=== PATIENT | male | born 1940 | race Caucasian/White ===

== ENCOUNTER 2017-03-31 16:34 | Emergency (ER) | payer OTHER ==
[~2017-03-31] VITALS: Ht 157.5 cm; Wt 77.7 kg
[~2017-03-31 16:34] MED LIST: ALBUAER19 INH; ASPCH81X PO; CLOB-65 TOP; ETAN50IN2 SC; IBUP-103 PO; LISI20TA3 PO; PRLSR20 PO
[2017-03-31 16:43] VITALS: TEMP 37.1; Ht 157.5 cm; Wt 77.7 kg
[2017-03-31] MEDS ORDERED: BACITRACIN OINT 15 GM TUBE EXT ONE (16:45)
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
[2017-03-31] MEDS ORDERED: ETAN50IN2 SC (17:06)
[2017-03-31] MEDS ORDERED: VNTHFA/IN INH (17:06)
[2017-03-31] MEDS ORDERED: CLOB-77 TOP (17:06)
[2017-03-31] MEDS ORDERED: HYDR12.55 PO (17:06)
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
[2017-03-31 18:57] VITALS: BP 142/93; PULSE 98; O2SAT 97
[2017-08-14] MEDS ORDERED: CYAN10005 PO (09:31)
== END 2017-03-31 18:58 | disposition home or self-care (01) ==
LOC: EDBD 16:34 → C.EDA 16:37
DX: S63.601A Unspecified sprain of right thumb, initial encounter (principal); S01.81XA Laceration without foreign body of other part of head, initial encounter; S80.811A Abrasion, right lower leg, initial encounter; V53.5XXA Driver of pick-up truck or van injured in collision with car, pick-up truck or van in traffic accident, initial encounter; Y92.488 Other paved roadways as the place of occurrence of the external cause; K21.9 Gastro-esophageal reflux disease without esophagitis; J45.909 Unspecified asthma, uncomplicated; E78.5 Hyperlipidemia, unspecified; I10 Essential (primary) hypertension; L40.9 Psoriasis, unspecified; Z90.79 Acquired absence of other genital organ(s); Z82.49 Family history of ischemic heart disease and other diseases of the circulatory system; Z79.82 Long term (current) use of aspirin; Z79.899 Other long term (current) drug therapy

== ENCOUNTER → 2017-07-08 | Outpatient (CLI) | payer OTHER ==
[~2017-07-08] MED LIST changes: -ALBUAER19 INH; -CLOB-65 TOP; +CLOB-77 TOP; +CYAN10005 PO; +HYDR12.55 PO; +VNTHFA/IN INH
== END | disposition home or self-care (01) ==
LOC: C.LAB 11:33
PROVIDERS: ATTEND Urology
DX: C61 Malignant neoplasm of prostate (principal)

== ENCOUNTER → 2017-07-10 | Outpatient (CLI) | payer OTHER ==
[~2017-07-10] MED LIST changes: +OPTIRAY 320 IV PRN
--- NOTE | 2017-07-10 14:14 | DIAGNOSTIC IMAGING REPORT ---
CT SCAN OF THE ABDOMEN AND PELVIS WITH IV CONTRAST CLINICAL HISTORY: Prostate cancer. COMPARISON STUDY: Abdominal CT dated 04/15/2009. TECHNIQUE: Following the IV administration of 93 cc of Optiray 320, CT scan of the abdomen and pelvis is performed from the lung bases to the proximal femora. Images are reviewed in the axial, sagittal, and coronal planes. IV contrast was administered without complication. A dose lowering technique was utilized adhering to the principles of ALARA. CT DOSE: 718.85 mGycm FINDINGS: Lung bases: The heart is normal in size and without pericardial effusion. The coronary arteries are densely calcified. A fat-containing Bochdalek hernia is seen at the right lung base. The lung bases are otherwise clear. There is a moderate hiatal hernia. Liver: The contrast-enhanced liver is normal in size, contour, and attenuation. There is no intrahepatic biliary ductal dilatation. The hepatic veins and portal veins are patent. Gallbladder: Unremarkable. Spleen: Normal in size and attenuation. Pancreas: Unremarkable. Adrenal glands: Unremarkable. Kidneys: The contrast enhanced kidneys demonstrate cortical atrophy and are without hydronephrosis. The kidneys enhance symmetrically. Abdominal vasculature: The abdominal aorta is normal in course and caliber noting mild atherosclerotic calcification. Bowel: The small bowel and colon are normal in course and caliber. There is advanced diverticulosis of left colon without CT evidence of acute diverticulitis. Mild wall thickening in the sigmoid colon is likely related to chronic diverticular disease, as are tiny PICC line lymph nodes. The appendix is not identified and reported surgically absent. Peritoneum: There is no intraperitoneal free air or abdominal ascites. There is a fat-containing umbilical hernia. Lymphadenopathy: None. Pelvic viscera: The prostate gland is surgically absent. The bladder and seminal vesicles are normal as imaged. Skeletal structures: The skeletal structures are osteopenic. There is mild lumbosacral spondylosis and scoliosis. No lytic or blastic lesions are seen. IMPRESSION: 1. There is no evidence of metastatic disease in the abdomen or pelvis. 2. There is advanced diverticulosis of the left colon without CT evidence of acute diverticulitis. 3. Mild wall thickening of the sigmoid colon and small pericardial lymph nodes are likely related to chronic diverticular disease. If not receive performed consider follow-up colonoscopy for further assessment. 4. Status post prostatectomy. 5. Additional findings as above. Electronically signed by: Tato Sanchez M.D. 07/10/2017 2:12 PM Dictated Date/Time: 07/10/2017 2:03 PM
--- NOTE | 2017-07-10 16:34 | DIAGNOSTIC IMAGING REPORT ---
WHOLE BODY BONE SCAN HISTORY: Prostate cancer. RADIOTRACER: 27 mCi Tc-99m MDP STUDY/IMAGES: Planar anterior and posterior whole body imaging was performed 3 hours following the intravenous administration of radiotracer. COMPARISON: Abdomen and pelvis CT 07/10/2017. FINDINGS: Scattered areas of mild radiotracer uptake seen within the shoulders, sternoclavicular joints, anterior first ribs, thoracic and lumbar spine, and left ankle/foot favor degenerative change. Small amount of radiotracer within the bladder remains. No suspicious areas of radiotracer uptake identified. IMPRESSION: No suspicious areas of radiotracer uptake within the axial or appendicular skeleton to suggest metastatic disease. Electronically signed by: Rajan Calderon M.D. 07/10/2017 4:32 PM Dictated Date/Time: 07/10/2017 4:29 PM
== END | disposition home or self-care (01) ==
LOC: C.CTS 12:32
PROVIDERS: ATTEND Urology
DX: C61 Malignant neoplasm of prostate (principal); K57.30 Diverticulosis of large intestine without perforation or abscess without bleeding; Z90.79 Acquired absence of other genital organ(s)

== ENCOUNTER → 2017-08-22 | Outpatient (CLI) | payer OTHER ==
[~2017-08-22] MED LIST changes: +GADAVIST IV PRN; -OPTIRAY 320 IV PRN
--- NOTE | 2017-08-22 11:09 | DIAGNOSTIC IMAGING REPORT ---
PROSTATE MRI COMBO CLINICAL HISTORY: 77 years-old Male presenting with history of PROSTATE CANCER status post prostatectomy and increasing PSA level. TECHNIQUE: Multisequence, multiplanar MR imaging of the prostate was performed before and after the administration of intravenous contrast. Additional postprocessing was performed on a separate [employer] workstation by the radiologist for 3-D volumetric segmentation of the prostate and contouring of region(s) of interest (JEFFERY) for targeting. IV contrast: 7.3 cc Gadavist COMPARISON: Abdomen and pelvis CT 07/10/2017. FINDINGS: Prostate gland is surgically absent. Multiple focal areas of metallic artifact at the prostatectomy bed resulting in suboptimal evaluation for recurrent/residual disease. No definite soft tissue masses identified within the prostatectomy bed. Of note, the ADC and DWI sequences are nondiagnostic due to the metallic artifact. Small fat-containing bilateral inguinal hernias. Bladder: Normal. Bowel: Visualized portion of the rectum normal. Peritoneum: No free fluid in the pelvis. Lymph nodes: No lymphadenopathy in the visualized portion of the pelvis. Vasculature: Iliac vessels patent. Osseous structures: Normal bone marrow signal intensity. IMPRESSION: 1. Status post prostatectomy. No definite evidence for recurrent or metastatic disease. 2. Of note, there is significant metallic artifact at the prostatectomy bed due to the surgical clips resulting in suboptimal evaluation. Electronically signed by: Rajan Calderon M.D. 08/22/2017 11:08 AM Dictated Date/Time: 08/22/2017 10:58 AM
== END | disposition home or self-care (01) ==
LOC: C.MRIBC 09:24
PROVIDERS: ATTEND Radiology Radiation Oncology
DX: C61 Malignant neoplasm of prostate (principal); Z90.79 Acquired absence of other genital organ(s)

== ENCOUNTER 2017-11-24 05:05 | Day surgery (SDC) | payer OTHER ==
[2017-11-14 13:24] VITALS: Ht 154.9 cm; Wt 74.1 kg
[~2017-11-24] VITALS: Ht 154.9 cm; Wt 74.1 kg
[~2017-11-24 05:05] MED LIST changes: +ANSHCCR PR; +CLBCRM30 EXT; -CLOB-77 TOP; -ETAN50IN2 SC; -GADAVIST IV PRN; -HYDR12.55 PO; -IBUP-103 PO; +IBUP-1428 PO; +PSYL48.59 PO; +TROL10LO TOP; +VALA500T60 PO
[2017-11-24 05:36] VITALS: BP 156/78; PULSE 106; TEMP 36.8; O2SAT 96
[2017-11-24] MEDS ORDERED: CLINDAMYCIN 600 MG/54 ML D5W IV SCH (06:00)
[2017-11-24] MEDS ORDERED: LACTATED RINGER'S 1000ML 500 ML IV SCH (06:00)
[2017-11-24] MEDS ORDERED: SODIUM CHLORIDE 0.9% 1000ML 1,000 ML IV SCH ×2 (06:00→08:16)
[2017-11-24] MEDS ORDERED: PROPOFOL IV EMULSION 10 MG/ML 20 ML VIAL IV ONE (06:30)
[2017-11-24] MEDS ORDERED: ROCURONIUM BROMIDE 10 MG/ML 5 ML VIAL IV ONE (06:30)
[2017-11-24] MEDS ORDERED: MIDAZOLAM HCL 1 MG/ML 2ML VIAL ONE (06:30)
[2017-11-24] MEDS ORDERED: GLYCOPYRROLATE INJ 0.2 MG/ML VIAL ONE (06:30)
[2017-11-24] MEDS ORDERED: ONDANSETRON INJ 2 MG/ML 2 ML VIAL ONE (06:30)
[2017-11-24] MEDS ORDERED: DEXAMETHASONE SOD INJ 4 MG/ML VIAL ONE (06:30)
[2017-11-24] MEDS ORDERED: NEOSTIGMINE METHYLSULFATE 5 MG/5 ML SYR ONE (06:30)
[2017-11-24] MEDS ORDERED: FENTANYL CITRATE INJ 50 MCG/1 ML 2 ML VIAL ONE ×2 (06:30→07:33)
[2017-11-24] MEDS ORDERED: BACITRACIN OINT 15 GM TUBE ONE (06:53)
[2017-11-24] MEDS ORDERED: LIDOCAINE HCL 1% 20 ML VIAL ONE (06:53)
[2017-11-24] MEDS ORDERED: BUPIVACAINE 0.5 % 5 MG/1 ML MPF 30ML VIAL ONE (06:54)
--- NOTE | 2017-11-24 07:08 | History & Physical Bridge Note ---
H&P Re-Evaluation Bridge Note: I have examined the patient, reviewed the History & Physical and in the interval since the performance of the History & Physical I have noted the following changes of clinical significance: No changes noted
[2017-11-24] MEDS ORDERED: EpHEDrine SULFATE INJ 50 MG/ML AMP IV PRN (07:15)
[2017-11-24] MEDS ORDERED: ATROPINE SULFATE 0.1 MG/ML 5ML SYR IV PRN (07:15)
[2017-11-24] MEDS ORDERED: FENTANYL CITRATE INJ 50 MCG/1 ML 2 ML VIAL IV PRN (07:15)
[2017-11-24] MEDS ORDERED: CLINDAMYCIN IV 600 MG in DEXTROSE 5% 50ML 50 ML IV ONE (07:15)
[2017-11-24] MEDS ORDERED: ONDANSETRON INJ 2 MG/ML 2 ML VIAL IV PRN ×2 (07:15→08:30)
[2017-11-24] MEDS ORDERED: HYDROmorphone INJ 1 MG/ML SYR IV PRN (07:15)
[2017-11-24] MEDS ORDERED: LIDOCAINE HCL 2% 2 ML VIAL (20MG/ML) ONE (07:36)
[2017-11-24] MEDS ORDERED: PHENYLEPHRINE 100MCG/ML 5ML SYR ONE (07:47)
--- NOTE | 2017-11-24 07:57 | [facility] Post Operative Brief Note ---
Immediate Operative Summary Operative Date Nov 24, 2017. Pre-Operative Diagnosis Incarcerated Umbilican Hernia Post-Operative Diagnosis Incarcerated Umbilican Hernia Procedure(s) Performed Open Repair Umbilical Hernia, primary closure Surgeon Dr. Harrell Discotheque Dancer Surgeon(s) surgical pathologist Estimated Blood Loss 5 ML Findings Consistent with Post-Op Diagnosis Fluids (cc crystalloids) 800ml Specimens None Per Surgeon Drains None Anesthesia Type General Complication(s) none Disposition Accompanied Pt To Recover: yes Disposition: Recovery Room / PACU
--- NOTE | 2017-11-24 08:22 | Discharge Instructions ---
Discharge Instructions Date of Service Nov 24, 2017. Visit Reason for Visit: Incarcerated Umbilical Hernia Discharge Discharge Diagnosis / Problem: S/P open repair umbilical hernia Discharge Goals Goal(s): Decrease discomfort, Improve function Activity Recommendations Activity Limitations: per Instructions/Follow-up section Lifting Limitations: no more than 25 pounds Exercise/Sports Limitations: rest today May Resume Sexual Activity: when tolerated Shower/Bathe: may shower/bathe in 3 days Driving or Machine Use: resume 3 days after discharge Anesthesia . Post Anesthesia Instructions: If you have had General Anesthesia or IV Sedation: * Do not drive today. * Resume driving when surgeon permits. * Do not make important decisions or sign legal documents today. * Call surgeon for: 1. Temperature elevations greater than 101 degrees F. 2. Uncontrollable pain. 3. Excessive bleeding. 4. Persistent nausea and vomiting. 5. Medication intolerance (nausea, vomiting or rash). * For nausea and vomiting use only clear liquids such as: tea, soda, bouillon until nausea subsides, then gradually increase diet as tolerated. * If you have any concerns or questions, call your surgeon's office. If physician is unavailable and it is an emergency, call 911 or go to the nearest emergency room. . Instructions / Follow-Up Instructions / Follow-Up keep the dressing on for 4 days, He can take a shower on 11/28/2017, no driving while taking pain medicine, Follow up Dr. Harrell, 2 weeks, Diet Recommendations Recommended Home Diet: resume previous diet Procedures Procedures Performed: Open Repair Umbilical Hernia, primary closure Pending Studies Studies pending at discharge: no Medical Emergencies . Who to Call and When: Medical Emergencies: If at any time you feel your situation is an emergency, please call 911 immediately. . Non-Emergent Contact Non-Emergency issues call your: Surgeon Call Non-Emergent contact if: you have a fever, temperature is above 100.5, your pain is not controlled, your pain is worsening, wound has increased drainage, wound has increased redness . . "Provider Documentation" section prepared by Camila Harrell. . [place] Drug Monitoring Program Search Results: no issues identified
[2017-11-24] MEDS ORDERED: tylenol # 3 (08:26)
[2017-11-24] MEDS ORDERED: IBUPROFEN 600 MG TAB PO PRN (08:30)
[2017-11-24] MEDS ORDERED: MoRPHine SULFATE 4 MG/ML 1 ML CARP\\VIAL IV PRN (08:30)
[2017-11-24] MEDS ORDERED: MoRPHine SULFATE 2 MG/ML CARP IV PRN (08:30)
--- NOTE | 2017-11-24 08:36 | Anesthesiology Progress Note ---
Anesthesia Post Op Note Date & Time Nov 24, 2017 at 08:36 Vital Signs Pain Intensity: 0 Vital Signs Past 12 Hours Date Time Temp Pulse Resp B/P (MAP) Pulse Ox O2 Delivery O2 Flow Rate FiO2 11/24/17 08:30 82 21 128/73 99 Room Air 11/24/17 08:20 83 21 131/97 98 Oxymask 10 11/24/17 08:10 85 16 128/93 99 Oxymask 10 11/24/17 08:04 36.2 110 17 133/89 100 Oxymask 10 11/24/17 05:36 36.8 106 18 156/78 (104) 96 Room Air Notes Mental Status: alert / awake / arousable, participated in evaluation Pt Amnestic to Procedure: Yes Nausea / Vomiting: adequately controlled Pain: adequately controlled Airway Patency, RR, SpO2: stable & adequate BP & HR: stable & adequate Hydration State: stable & adequate Anesthetic Complications: no major complications apparent
[2017-11-24 08:55] VITALS: BP 113/63; PULSE 79; TEMP 36.9; O2SAT 93
[2017-11-24 09:25] VITALS: BP 118/66; PULSE 79; TEMP 36.9; O2SAT 96
--- NOTE | 2017-11-24 10:13 | OPERATIVE REPORT ---
DATE OF OPERATION: 11/24/2017 PREOPERATIVE DIAGNOSIS: Incarcerated umbilical hernia. POSTOPERATIVE DIAGNOSIS: Same. OPERATION: Open repair of incarcerated umbilical hernia with primary closure. SURGEON: Camila Harrell MD. ANESTHESIA: General. ESTIMATED BLOOD LOSS: About 5 mL. FINDINGS: Incarcerated umbilical hernia. COMPLICATIONS: None. INDICATIONS FOR THE PROCEDURE: This is a 77-year-old gentleman who presented with umbilical hernia with symptoms of pain. The patient will be required to do open repair of umbilical hernia, possible mesh. I did talk to the patient about the benefit and risk, alternate procedure. I indicated the risks may include but not limited such as bleeding, infection, hernia recurrence, injury to bowel. The patient understands. He signed informed consent and I answered all questions. DETAILS OF PROCEDURE: We brought the patient to the OR, put the patient in the supine position. The patient received SCD on bilateral legs to prevent DVT. Also, the patient received 600 mg of clindamycin IV for prophylactic antibiotic. The patient received general anesthesia without difficulty. The abdomen was prepped and draped in routine sterile fashion. After a timeout, I injected local anesthesia by using 1% lidocaine mixed with 0.5% Marcaine just below the umbilicus. Then I made a small incision just below the umbilicus, mobilized the umbilicus and then opened the hernia sac. We found the patient had an umbilical hernia incarcerated but we successfully reduced the incarcerated fat. The fat color was pink. Once we reduced the sac back to the abdominal cavity and we found the patient had a hernia size about 1.5 x 1.5 cm, we decided to use 0 Ethibond suture, closed the umbilical hernia with [id number] x3, rechecked, the hernia closed nicely, no tension. Hemostasis was obtained. Then I used 2-0 Vicryl to reattach the umbilicus to original location. Then I used 2-0 Vicryl to close subcutaneous layer interruptedly. We closed the skin by using 4-0 Vicryl and then we put the dressing on. The patient tolerated the procedure well. All the instrument, needle and sponge count correct x2 at the end of case and patient transferred to recovery room in stable condition. After the procedure, I did talk to the patient and patient's family member about the OR finding and procedure we did. They understands. Also, I gave them postop care instructions. I attest to the content of the Intraoperative Record and any orders documented therein. Any exceptions are noted below. LESLIE
== END 2017-11-24 10:20 | disposition home or self-care (01) ==
LOC: C.ACU 05:05
PROVIDERS: ATTEND Surgery
DX: K42.0 Umbilical hernia with obstruction, without gangrene (principal); K21.9 Gastro-esophageal reflux disease without esophagitis; J45.909 Unspecified asthma, uncomplicated; L40.50 Arthropathic psoriasis, unspecified; I10 Essential (primary) hypertension; M50.20 Other cervical disc displacement, unspecified cervical region; Z90.49 Acquired absence of other specified parts of digestive tract; Z87.891 Personal history of nicotine dependence; Z85.46 Personal history of malignant neoplasm of prostate; Z86.010 Personal history of colon polyps; Z79.82 Long term (current) use of aspirin

== ENCOUNTER → 2017-12-24 | Outpatient (CLI) | payer OTHER ==
[~2017-12-24] MED LIST changes: +HYDR25TA4 PO; +MULT-506 PO; +tylenol # 3
[2017-12-24 15:06] VITALS: BP 132/77; PULSE 95; TEMP 37; O2SAT 95
--- NOTE | 2017-12-24 16:20 | Radiation Oncology Follow-Up ---
Radiation Oncology Follow-Up Date of Visit Dec 24, 2017. Reason For Visit One-month follow-up in cancer survivorship care plan Radiation Completion Date finished 11-18-2017 Diagnosis (1) Prostate cancer Status: Acute Onset Date: 10/13/2003 Location: Left lobe of the prostate Histology Subtype: Adenocarcinoma Stage: ll Permanent Comment: Rising PSA Status post biopsy 10/13/2003 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 Lupron 22.5 mg IM 08/22/2017 Lupron 22.5 mg IM 11/18/2017 Status post completion of salvage radiation therapy 11/18/2017. He received 7020 cGy. Last Edited By: Vivian Cain on Nov 26, 2017 09:57 History of Present Illness Mr. Bailey presents with a history of prostate cancer. He initially presented with an elevated PSA in 2002 of 4.24 on 09/08/2003. He initially underwent a biopsy of the prostate gland on 10/13/2003 which revealed [place] 3+3 prostate adenocarcinoma. The patient elected to undergo a radical prostatectomy by Dr. Elaine which revealed prostate adenocarcinoma that was Norma 3+3 present in the left anterior/posterior lobe; there is no evidence of seminal vesicle invasion, the margins were negative and there is no apparent evidence of extracapsular extension. The patient did have follow-up PSAs. His PSA was 0.05 on 10/02/2007, 0.15 on 08/18/2005, 0.28 on 11/19/2010, 0.25 on 09/20/2011, 0.96 on 08/21/2016, 1.21 on 04/11/2017 and 1.29 on 07/08/2017. The patient underwent a CT of the abdomen/pelvis on 07/10/2017 which revealed no evidence of metastatic disease. The patient also underwent a bone scan on 07/10/2017 which revealed no evidence of distant metastatic disease. Dr. Hansen recently started seeing the patient and recommended consideration of salvage radiation therapy. We are now seeing the patient in consultation discuss the role of radiation therapy. Currently, the patient is doing relatively well. He denies any complaints of urinary incontinence. His urinary IPSS score 0/35. His EPIC QoL score is 6/ 60. He has no significant complaints at this point. He began androgen deprivation with Lupron. He then returned to our office to undergo salvage radiation therapy. This was completed 11/18/2017. He received 7020 cGy. Interim History He has been doing well over the past month. He denies any difficulty with urinary status. He gave an AUA score of 0. He completed and expanded prostate cancer index composite for clinical practice and gave a score of 0 of 12 and urinary incontinence symptoms. He gave a score of 0 12 and urinary irritation symptoms. He gave a score of 0 12 and bowel symptoms. He gave a score of 7 of 12 in sexual symptoms. He gave a score of 1 of 12 and hormonal vitality symptoms. His total was 8 of 60. Following his completion of radiation therapy he had a repair of an umbilical hernia. This had been noted during treatment and he was evaluated. He had surgery and has recovered well without difficulties. He is having a flare of his psoriasis. He had been on Humira and that was stopped with his prostate cancer diagnosis. He is going to be seeing a propagation worker to discuss what can be done to help his psoriasis. Allergies Coded Allergies: Oxycodone (Verified Adverse Reaction, Mild, HALLUCINATIONS, 11/24/17) Amoxicillin (Verified Adverse Reaction, Unknown, increased lft's, 11/24/17) gmg Clavulanic Acid (Verified Adverse Reaction, Unknown, increased lft's, 11/24) gmg Home Medications Scheduled Albuterol Hfa (Ventolin Hfa), 2-4 PUFFS INH Q6Hprn Aspirin (Aspirin Chewable), 81 MG PO QAM Clobetasol Propionate (Clobetasol Propionate Cream 0.05%), 1 APPLN EXT PRN Cyanocobalamin (Vitamin B-12), 1,000 MCG PO PRN Hydrochlorothiazide (Hctz), 1 TAB PO DAILY Lisinopril (Prinivil), 20 MG PO QAM Multivitamin (Multivitamin), 1 TAB PO DAILY Omeprazole (Prilosec), 20 MG PO QAM Trolamine Salicylate (Aspercreme), 1 DOSE TOP PRN Valacyclovir (Valtrex), 500 MG PO UD Scheduled PRN Hydrocortisone (Proctosol Hc), 1 APPLN PA BID PRN for PRN Ibuprofen (Motrin), 800 MG PO TID PRN for N Psyllium (Metamucil), 1 TSP PO Q2D PRN for PRN Review of Systems Gastrointestinal: Symptoms: WNL Oral: Symptoms: No Problems Respiratory: Symptoms: WNL Urinary: Symptoms: WNL Comments: "denies any problems " Skin: Other Skin Symptoms: " Psoriasis is back " Physical Exam Vital Signs Date Time Temp Pulse Resp B/P (MAP) Pulse Ox O2 Delivery O2 Flow Rate FiO2 12/24/17 15:06 37.0 95 18 132/77 95 Fatigue: None General Appearance: no apparent distress Eyes: normal inspection, EOMI ENT: normal ENT inspection, hearing grossly normal Respiratory/Chest: lungs clear, no respiratory distress, no accessory muscle use Cardiovascular: regular rate, rhythm, no gallop, no murmur Abdomen: non tender, soft, no organomegaly Extremities: no pedal edema, + pertinent finding (Psoriasis plaque are noted on the lower extremities.) Neurologic/Psychiatric: no motor/sensory deficits, alert, normal mood/affect Pain Management Patient Reports Pain: No Side: Bilateral Patient Preferred Pain Scale: 0 - 10 Initial Pain Intensity: 0.0 Pain Management Plan He denies pain therefore requires no pain management. Laboratory Laboratory Results: were reviewed, and pertinent findings noted below Laboratory Comments: Test 12/24/17 15:26 Prostate Specific Antigen < 0.010 ng/ml (0.000-4.000) Pathology Pathology Results: not applicable Imaging Imaging Studies: not applicable Assessment & Plan Plan: He was also seen and examined by Dr. Vital. PSA was drawn today. He will be notified as the results. Continue follow-up with Dr. Hansen and his PCP. He has an appointment with Dr. Hansen in January. Today we completed cancer survivorship care plan. A copy of the document was given to the patient. We asked him to return to our office in 6 months. He may call if he has any questions or concerns in the interim. He is going to follow-up with his propagation worker in regards to the issues of the recurrence of his psoriasis. Assessment & Plan (Attending) I agree with note created by Vivian Cain PA-C. I reviewed the patient's chart and information with her. I have examined and evaluated the patient. I reviewed relevant clinical information and answered the patient's and/or family' s questions. MANAGER QUALITY Total Time In Follow-Up I spent 20 minutes speaking to the patient in performing examination. I spent 20 minutes reviewing information, preparing the survivorship document, and completing this note. Total Time (Attending) In Follow-Up I spent 15 minutes examining and counseling the patient. MANAGER QUALITY Copy To Marcial Franks D.O.; Tu Hansen MD
== END | disposition home or self-care (01) ==
LOC: C.ONC 14:56
PROVIDERS: ATTEND Physician Assistant Medical
DX: Z08 Encounter for follow-up examination after completed treatment for malignant neoplasm (principal); Z92.3 Personal history of irradiation; Z85.46 Personal history of malignant neoplasm of prostate

== ENCOUNTER 2018-06-15 08:01 | Emergency (ER) | payer OTHER ==
[~2018-06-15] VITALS: Ht 157.5 cm; Wt 72.6 kg
[~2018-06-15 08:01] MED LIST changes: -tylenol # 3
[2018-06-15 08:03] VITALS: TEMP 36.8; Ht 157.5 cm; Wt 72.6 kg
[2018-06-15] MEDS ORDERED: OPTIRAY 320 IV PRN (08:30)
--- NOTE | 2018-06-15 08:46 | DIAGNOSTIC IMAGING REPORT ---
CHEST ONE VIEW PORTABLE CLINICAL HISTORY: 78 years-old Male presenting with Evaluate Fever/Sepsis. TECHNIQUE: Portable upright AP view of the chest was obtained. COMPARISON: 07/10/2014. FINDINGS: Cardiac silhouette top normal in size, unchanged. Prominent pericardial fat pad at the right cardiophrenic angle. No focal opacity. No large effusion or pneumothorax. Osseous structures normal. Upper abdomen normal. IMPRESSION: 1. No acute cardiopulmonary disease. Electronically signed by: Shen Umana M.D. 06/15/2018 8:44 AM Dictated Date/Time: 06/15/2018 8:42 AM
[2018-06-15 08:47] LABS: BASO % 0.3 %; BASO ABS # 0.03 K/uL (0-0.2); EOS % 0.8 %; EOS ABS # 0.08 K/uL (0-0.5); HEMATOCRIT 35.1 % (42-52); HEMOGLOBIN 12.1 g/dL (14.0-18.0); IG# 0.12 K/uL (0.00-0.02); LYMPH % 23.6 %; LYMPH ABS # 2.33 K/uL (1.2-3.4); MEAN CELL VOLUME 86.9 fL (80-100); MEAN CORPUSCULAR HGB CONC 34.5 g/dl (32-36); MEAN PLATELET VOLUME 10.4 fL (7.4-10.4); MONO % 8.4 %; MONO ABS # 0.83 K/uL (0.11-0.59); NEUT % 65.7 %; NEUT ABS # 6.47 K/uL (1.4-6.5); PLATELET COUNT 310 K/uL (130-400); RED CELL DISTRIBUTION WIDTH SD 41.4 fL (36.4-46.3); WHITE BLOOD COUNT 9.86 K/uL (4.8-10.8)
[2018-06-15 08:57] LABS: PTT PATIENT 28.3 SECONDS (21.0-31.0)
[2018-06-15 09:11] LABS: ALBUMIN 3.2 gm/dl (3.4-5.0); ALKALINE PHOSPHATASE 68 U/L (45-117); ALT/SGPT 36 U/L (12-78); AST/SGOT 35 U/L (15-37); BLOOD UREA NITROGEN 13 mg/dl (7-18); CALCIUM 8.5 mg/dl (8.5-10.1); CARBON DIOXIDE 34 mmol/L (21-32); CKMB < 1.0 ng/ml (0.5-3.6); CREATININE 1.09 mg/dl (0.60-1.40); GLUCOSE 113 mg/dl (70-99); LIPASE 331 U/L (73-393); POTASSIUM 2.4 mmol/L (3.5-5.1); SODIUM 136 mmol/L (136-145); TOTAL PROTEIN 7.5 gm/dl (6.4-8.2)
[2018-06-15] MEDS ORDERED: POTASSIUM CHLORIDE 10 MEQ TABCR PO STA (09:30)
--- NOTE | 2018-06-15 09:43 | DIAGNOSTIC IMAGING REPORT ---
THORACIC SPINE WITHOUT CT DOSE: HISTORY: Pain t spine pain TECHNIQUE: Multiaxial CT images of the thoracic spine were performed and reformatted in the sagittal and coronal plane without the use of contrast. A dose lowering technique was utilized adhering to the principles of ALARA. COMPARISON: None. FINDINGS: No fractures. No subluxation. Paraspinal soft tissues are unremarkable. Moderate degenerative disc change throughout. Degenerative sclerotic change of the vertebral endplates. No evidence for compression deformity. No bony compromise of the thoracic spine. IMPRESSION: Degenerative disc change throughout. No acute process. The above report was generated using voice recognition software. It may contain grammatical, syntax or spelling errors. Electronically signed by: Fernandez Llamas M.D. 06/15/2018 9:42 AM Dictated Date/Time: 06/15/2018 9:40 AM
--- NOTE | 2018-06-15 09:55 | DIAGNOSTIC IMAGING REPORT ---
CHEST COMBO ANGIOGRAPHY CLINICAL HISTORY: 78 years-old Male presenting with thoracic spine pain, clinical concern for thoracic aortic dissection. TECHNIQUE: Multidetector CT angiography of the chest was performed before and after the administration of intravenous contrast. 3-D volumetric and/or maximum intensity projection (MIP) images were subsequently reconstructed for review. IV contrast: 95 mL of Optiray 320. A dose lowering technique was used consistent with the principles of ALARA (as low as reasonably achievable). COMPARISON: Chest x-ray from earlier today. CT DOSE (mGy.cm): The estimated cumulative dose is 994.46 mGy.cm. FINDINGS: Apartment [employer] topogram: Unremarkable. Vasculature: The study is adequate for assessment of the aorta. Precontrast imaging demonstrates no evidence of intramural hematoma. Postcontrast imaging demonstrates no evidence of dissection, penetrating ulcer, or aneurysm. Allowing for timing of the contrast bolus, no gross evidence of a filling defect within the pulmonary arteries to suggest embolus. Enlargement of the main pulmonary artery, which measures 3.4 cm in diameter. No flattening of the interventricular septum. No intracardiac filling defect. No reflux of contrast into the hepatic veins. Remaining chest: On soft tissue windows, normal thyroid and thoracic inlet. No axillary, supraclavicular, hilar, or mediastinal lymphadenopathy. Prominent pericardial recess in the pretracheal region. Normal heart size. Coronary artery calcification. No pericardial or pleural effusion. Prominent posterior mediastinal fat at the level of the distal esophagus, which may be due to a small hiatal hernia. No extraluminal gas. Small amount of associated fluid in the presumed hernia sac (series 8 image 203). Density of the liver consistent with hepatic steatosis. On lung windows, no focal infiltrate or nodule. Airways patent. On bone windows, degenerative changes of the spine. IMPRESSION: 1. No evidence of acute aortic injury. No acute intrathoracic pathology. 2. Main pulmonary artery enlarged, which may indicate pulmonary hypertension. 3. Prominent posterior mediastinal fat at the level of the distal esophagus, which may be due to a hiatal hernia. Small amount of associated fluid, nonspecific. 4. Hepatic steatosis. Electronically signed by: Shen Umana M.D. 06/15/2018 9:54 AM Dictated Date/Time: 06/15/2018 9:47 AM
[2018-06-15] MEDS ORDERED: TRAM-10 PO (10:04)
[2018-06-15] MEDS ORDERED: POTA10CA28 PO (10:04)
--- NOTE | 2018-06-15 10:06 | EMERGENCY ROOM VISIT NOTE ---
History Report prepared by Levon: Trev Garibay Under the Supervision of: Dr. Curtis Jewell D.O. First contact with patient: 08:11 Chief Complaint: BACK PAIN Stated Complaint: UPPER BACK PAIN History of Present Illness The patient is a 78 year old male who presents to the Emergency Room with complaints of worsening back pain that he has been experiencing for the "past 2- 3 weeks." The patient states that the pain is localized to the central/left back and feels like "I got a knife buried in there." He has been trying Ibuprofen, ice, and head, but nothing seems to help. He denies any breathing difficulties. Source of History: patient Onset: 2-3 weeks Position: back Quality: other ("I got a knife buried in there.") Timing: other Modifying Factors (Relieving): other (N/A) Associated Symptoms: No SOB Review of Systems See HPI for pertinent positives & negatives. A total of 10 systems reviewed and were otherwise negative. Past Medical & Surgical Medical Problems: (1) Acid reflux (2) Asthma, Unspecified (3) Esophageal Reflux (4) Hyperlipidemia Nec/Nos (5) Hypertension (6) Hypertension Nos (7) Psoriasis Surgical Problems: (1) History of appendectomy (2) History of prostatectomy (3) Status post tonsillectomy and adenoidectomy Family History Hypertension Social History Smoking Status: Never Smoker Alcohol Use: none Marital Status: single Housing Status: lives alone Occupation Status: retired Current/Historical Medications Scheduled Albuterol Hfa (Ventolin Hfa), 2-4 PUFFS INH Q6Hprn Aspirin (Aspirin Chewable), 81 MG PO QAM Clobetasol Propionate (Clobetasol Propionate Cream 0.05%), 1 APPLN EXT PRN Cyanocobalamin (Vitamin B-12), 1,000 MCG PO PRN Hydrochlorothiazide (Hctz), 1 TAB PO DAILY Lisinopril (Prinivil), 20 MG PO QAM Multivitamin (Multivitamin), 1 TAB PO DAILY Omeprazole (Prilosec), 20 MG PO QAM Potassium Chloride (Micro-K Ext Rel), 10 MEQ PO BID Trolamine Salicylate (Aspercreme), 1 DOSE TOP PRN Valacyclovir (Valtrex), 500 MG PO UD Scheduled PRN Hydrocortisone (Proctosol Hc), 1 APPLN [place] BID PRN for PRN Ibuprofen (Motrin), 800 MG PO TID PRN for N Psyllium (Metamucil), 1 TSP PO Q2D PRN for PRN Tramadol (Ultram), 100 MG PO Q4H PRN for Pain Allergies Coded Allergies: Oxycodone (Verified Adverse Reaction, Mild, HALLUCINATIONS, 06/15/18) Amoxicillin (Verified Adverse Reaction, Unknown, increased lft's, 06/15/18) gmg Clavulanic Acid (Verified Adverse Reaction, Unknown, increased lft's, 06/15) gmg Physical Exam Vital Signs Date Time Temp Pulse Resp B/P (MAP) Pulse Ox O2 Delivery O2 Flow Rate FiO2 06/15/18 09:15 78 18 141/84 97 Room Air 06/15/18 08:35 94 06/15/18 08:03 36.8 91 18 154/89 98 Room Air Physical Exam CONSTITUTIONAL/VITAL SIGNS: Reviewed / noted above. GENERAL: Non-toxic in appearance. INTEGUMENTARY: Warm, dry, and [place]. HEAD: Normocephalic. EYES: without scleral icterus or trauma. ENT/OROPHARYNX: clear and moist. LYMPHADENOPATHY/NECK: Is supple without lymphadenopathy or meningismus. RESPIRATORY: Lungs clear and equal. CARDIOVASCULAR: Regular rate and rhythm. GI/ABDOMEN: Soft and nontender. No organomegaly or pulsatile mass. No rebound or guarding. Normal bowel sounds. EXTREMITIES: Warm and well perfused. BACK: No CVA tenderness. No rashes. NEUROLOGICAL: Intact without focal deficits. PSYCHIATRIC: normal affect. MUSCULOSKELETAL: Normally developed with good muscle tone. Medical Decision & Procedures ER Provider Diagnostic Interpretation: Radiology results as stated below per my review and radiologist interpretation: CHEST ONE VIEW PORTABLE CLINICAL HISTORY: 78 years-old Male presenting with Evaluate Fever/Sepsis. TECHNIQUE: Portable upright AP view of the chest was obtained. COMPARISON: 07/10/2014. FINDINGS: Cardiac silhouette top normal in size, unchanged. Prominent pericardial fat pad at the right cardiophrenic angle. No focal opacity. No large effusion or pneumothorax. Osseous structures normal. Upper abdomen normal. IMPRESSION: 1. No acute cardiopulmonary disease. Electronically signed by: Shen Umana M.D. 06/15/2018 8:44 AM Dictated Date/Time: 06/15/2018 8:42 AM CHEST COMBO ANGIOGRAPHY CLINICAL HISTORY: 78 years-old Male presenting with thoracic spine pain, clinical concern for thoracic aortic dissection. TECHNIQUE: Multidetector CT angiography of the chest was performed before and after the administration of intravenous contrast. 3-D volumetric and/or maximum intensity projection (MIP) images were subsequently reconstructed for review. IV contrast: 95 mL of Optiray 320. A dose lowering technique was used consistent with the principles of ALARA (as low as reasonably achievable). COMPARISON: Chest x-ray from earlier today. CT DOSE (mGy.cm): The estimated cumulative dose is 994.46 mGy.cm. FINDINGS: Merchandise Execution Leader topogram: Unremarkable. Vasculature: The study is adequate for assessment of the aorta. Precontrast imaging demonstrates no evidence of intramural hematoma. Postcontrast imaging demonstrates no evidence of dissection, penetrating ulcer, or aneurysm. Allowing for timing of the contrast bolus, no gross evidence of a filling defect within the pulmonary arteries to suggest embolus. Enlargement of the main pulmonary artery, which measures 3.4 cm in diameter. No flattening of the interventricular septum. No intracardiac filling defect. No reflux of contrast into the hepatic veins. Remaining chest: On soft tissue windows, normal thyroid and thoracic inlet. No axillary, supraclavicular, hilar, or mediastinal lymphadenopathy. Prominent pericardial recess in the pretracheal region. Normal heart size. Coronary artery calcification. No pericardial or pleural effusion. Prominent posterior mediastinal fat at the level of the distal esophagus, which may be due to a small hiatal hernia. No extraluminal gas. Small amount of associated fluid in the presumed hernia sac (series 8 image 203). Density of the liver consistent with hepatic steatosis. On lung windows, no focal infiltrate or nodule. Airways patent. On bone windows, degenerative changes of the spine. IMPRESSION: 1. No evidence of acute aortic injury. No acute intrathoracic pathology. 2. Main pulmonary artery enlarged, which may indicate pulmonary hypertension. 3. Prominent posterior mediastinal fat at the level of the distal esophagus, which may be due to a hiatal hernia. Small amount of associated fluid, nonspecific. 4. Hepatic steatosis. Electronically signed by: Shen Umana M.D. 06/15/2018 9:54 AM Dictated Date/Time: 06/15/2018 9:47 AM THORACIC SPINE WITHOUT CT DOSE: HISTORY: Pain t spine pain TECHNIQUE: Multiaxial CT images of the thoracic spine were performed and reformatted in the sagittal and coronal plane without the use of contrast. A dose lowering technique was utilized adhering to the principles of ALARA. COMPARISON: None. FINDINGS: No fractures. No subluxation. Paraspinal soft tissues are unremarkable. Moderate degenerative disc change throughout. Degenerative sclerotic change of the vertebral endplates. No evidence for compression deformity. No bony compromise of the thoracic spine. IMPRESSION: Degenerative disc change throughout. No acute process. The above report was generated using voice recognition software. It may contain grammatical, syntax or spelling errors. Electronically signed by: Fernandez Llamas M.D. 06/15/2018 9:42 AM Dictated Date/Time: 06/15/2018 9:40 AM Laboratory Results 06/15/18 08:35 Red Blood Count 4.04, Mean Corpuscular Volume 86.9, Mean Corpuscular Hemoglobin 30.0, Mean Corpuscular Hemoglobin Concent 34.5, Mean Platelet Volume 10.4, Neutrophils (%) (Auto) 65.7, Lymphocytes (%) (Auto) 23.6, Monocytes (%) (Auto) 8.4, Eosinophils (%) (Auto) 0.8, Basophils (%) (Auto) 0.3, Neutrophils # (Auto) 6.47, Lymphocytes # (Auto) 2.33, Monocytes # (Auto) 0.83, Eosinophils # (Auto) 0.08, Basophils # (Auto) 0.03 06/15/18 08:35 Test 06/15/18 08:35 White Blood Count 9.86 K/uL (4.8-10.8) Red Blood Count 4.04 M/uL (4.7-6.1) Hemoglobin 12.1 g/dL (14.0-18.0) Hematocrit 35.1 % (42-52) Mean Corpuscular Volume 86.9 fL (80-100) Mean Corpuscular Hemoglobin 30.0 pg (25-34) Mean Corpuscular Hemoglobin Concent 34.5 g/dl (32-36) Platelet Count 310 K/uL (130-400) Mean Platelet Volume 10.4 fL (7.4-10.4) Neutrophils (%) (Auto) 65.7 % Lymphocytes (%) (Auto) 23.6 % Monocytes (%) (Auto) 8.4 % Eosinophils (%) (Auto) 0.8 % Basophils (%) (Auto) 0.3 % Neutrophils # (Auto) 6.47 K/uL (1.4-6.5) Lymphocytes # (Auto) 2.33 K/uL (1.2-3.4) Monocytes # (Auto) 0.83 K/uL (0.11-0.59) Eosinophils # (Auto) 0.08 K/uL (0-0.5) Basophils # (Auto) 0.03 K/uL (0-0.2) RDW Standard Deviation 41.4 fL (36.4-46.3) RDW Coefficient of Variation 13.0 % (11.5-14.5) Immature Granulocyte % (Auto) 1.2 % Immature Granulocyte # (Auto) 0.12 K/uL (0.00-0.02) Prothrombin Time 10.6 SECONDS (9.0-12.0) Prothromb Time International Ratio 1.0 (0.9-1.1) Activated Partial Thromboplast Time 28.3 SECONDS (21.0-31.0) Partial Thromboplastin Ratio 1.1 Anion Gap 6.0 mmol/L (3-11) Est Creatinine Clear Calc Drug Dose 50.4 ml/min Estimated GFR () 76.0 Estimated GFR (Non- 65.6 BUN/Creatinine Ratio 12.0 (10-20) Calcium Level 8.5 mg/dl (8.5-10.1) Total Bilirubin 0.5 mg/dl (0.2-1) Direct Bilirubin 0.2 mg/dl (0-0.2) Aspartate Amino Transf (AST/SGOT) 35 U/L (15-37) Alanine Aminotransferase (ALT/SGPT) 36 U/L (12-78) Alkaline Phosphatase 68 U/L (45-117) Total Creatine Kinase 106 U/L (39-308) Creatine Kinase MB < 1.0 ng/ml (0.5-3.6) Creatine Kinase MB Ratio (0-3.0) Troponin I < 0.015 ng/ml (0-0.045) Total Protein 7.5 gm/dl (6.4-8.2) Albumin 3.2 gm/dl (3.4-5.0) Lipase 331 U/L (73-393) Laboratory results as stated above per my review. Medications Administered Medications (Trade) Dose Ordered Sig/Conor Route Start Time Stop Time Status Last Admin Dose Admin Potassium Chloride (Klor-Con M10) 60 meq NOW STAT PO 06/15/18 09:30 06/15/18 09:31 DC 06/15/18 09:36 60 MEQ ECG Per My Interpretation Indication: back/shoulder pain Rate (beats per minute): 81 Rhythm: normal sinus Findings: no acute ischemic change, no ectopy, other (No DEANNA/STD) ED Course 814: Previous medical records were reviewed. The patient was evaluated in room A2. A complete history and physical examination was performed. 929: Ordered Potassium Chloride 60 meq PO. 1010: On reevaluation, the patient is resting in bed. I discussed the results and findings with the patient. He verbalized agreement of the treatment plan. The patient was discharged home. Medical Decision the differential was considered includes acute myocardial infarction, musculoskeletal, acute coronary syndrome, myocarditis, pericarditis, pericardial effusions/tamponade, esophageal perforation, thoracic aortic dissection, pulmonary embolism, pneumonia, pneumothorax, pancreatitis, shingles , acute cholecystitis, perforated abdominal viscus. This is a 78-year-old male who presents to the ED with a chief complaint of left upper back pain. The patient describes it as a sharp pain just left of his spine that is been present for the past 2-3 weeks. He states that he has tried heating pads, ibuprofen and nothing seems to help. It is not necessarily worse with movement. He states that he has not been as active as usual because of the discomfort. He has no chest pains or shortness of breath. He has not had any rashes in the area. He has not had a fever. Denies any recent trauma. Initial blood pressure slightly elevated. 154/89. This could be related to pain. His exam was otherwise unremarkable. A chest x-ray was negative for acute disease. EKG shows a normal sinus rhythm. CBC is unremarkable. Troponin was negative. CT scan angiogram the aorta and chest was negative for acute intrathoracic pathology. CT scan of the T-spine reveals DJD. Chemistry panel was unremarkable with exception of a low potassium of 2.4. Kidney function was normal. The patient was told the results of the test. He was treated with oral potassium. He was discharged with a prescription for potassium for the next several days and was also given a prescription for Ultram for his pain. He was told to follow-up with his PCP for further evaluation and care and pain management. The patient was given a dose of Ultram here orally. He was also had a Lidoderm patch placed in his area of pain. Medication Reconcilliation Current Medication List: was personally reviewed by me Blood Pressure Screening Patient's blood pressure: Elevated blood pressure Blood pressure disposition: Elevated BP felt to be situational Impression Primary Impression: Upper back pain Scribe Attestation The scribe's documentation has been prepared under my direction and personally reviewed by me in its entirety. I confirm that the note above accurately reflects all work, treatment, procedures, and medical decision making performed by me. Departure Information Dispostion Home / Self-Care Prescriptions Tramadol (Ultram) 50 Mg Tab 100 MG PO Q4H Y for Pain, #30 TAB Prov: Curtis Jewell D.O. 06/15/18 Potassium Chloride (Micro-K Ext Rel) 10 Meq Capcr 10 MEQ PO BID for 7 Days, #14 CAP Prov: Curtis Jewell D.O. 06/15/18 Referrals Marcial Franks D.O. (PCP) Patient Instructions My [facility] Additional Instructions Your potassium was low today at 2.4. Follow-up with your doctor next week for recheck of this. K Dur as prescribed. The cause for your back pain was not discovered today. The CAT scan of your chest and back only shows some degenerative changes or age-related changes. Blood work was unremarkable. Follow-up with your doctor for recheck of these symptoms. Take Ultram as prescribed for pain. Follow-up with your doctor for further care and evaluation in 1-2 days. Return to the emergency department for worsening or new symptoms or any concerns. You have been examined and treated today on an emergency basis only. This is not a substitute for, or an effort to provide, complete comprehensive medical care. It is impossible to recognize and treat all injuries or illnesses in a single emergency department visit. It is therefore important that you follow up closely with your doctor. Call as soon as possible for an appointment.
[2018-06-15] MEDS ORDERED: TRAMADOL HCL 50 MG TAB PO STA (10:08)
[2018-06-15] MEDS ORDERED: LIDODERM (LIDOCAINE) PATCH 5% TD ONE (10:15)
[2018-06-15 10:16] VITALS: BP 154/89; PULSE 82; O2SAT 97
== END 2018-06-15 10:27 | disposition home or self-care (01) ==
LOC: C.EDB 08:02 → C.EDA 10:27
DX: M54.6 Pain in thoracic spine (principal); E87.6 Hypokalemia; M51.34 Other intervertebral disc degeneration, thoracic region; J45.909 Unspecified asthma, uncomplicated; Z79.82 Long term (current) use of aspirin; I10 Essential (primary) hypertension; K21.9 Gastro-esophageal reflux disease without esophagitis; Z88.6 Allergy status to analgesic agent; Z88.1 Allergy status to other antibiotic agents

== ENCOUNTER → 2018-06-23 | Outpatient (CLI) | payer OTHER ==
[~2018-06-23] MED LIST changes: +POTA10CA28 PO; +POTA75TA PO; +TRAM-10 PO
[2018-06-23 14:04] VITALS: BP 114/67; PULSE 90; TEMP 36.6; O2SAT 96
--- NOTE | 2018-06-23 15:34 | Radiation Oncology Follow-Up ---
Radiation Oncology Follow-Up Date of Visit Jun 23, 2018. Reason For Visit 6 month follow up Radiation Completion Date finished 11-18-2017 Diagnosis (1) Prostate cancer Status: Acute Onset Date: 10/13/2003 Location: left lobe of the prostate Histology Subtype: adenocarcinoma Stage: ll Permanent Comment: Rising PSA Status post biopsy 10/13/2003 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 Lupron 22.5 mg IM 08/22/2017 Lupron 22.5 mg IM 11/18/2017 Status post completion of salvage radiation therapy 11/18/2017. He received 7020 cGy. Last Edited By: Vivian Cain on Nov 26, 2017 09:57 History of Present Illness Mr. Bailey presents with a history of prostate cancer. He initially presented with an elevated PSA in 2002 of 4.24 on 09/08/2003. He initially underwent a biopsy of the prostate gland on 10/13/2003 which revealed [place] 3+3 prostate adenocarcinoma. The patient elected to undergo a radical prostatectomy by Dr. Elaine which revealed prostate adenocarcinoma that was Norma 3+3 present in the left anterior/posterior lobe; there is no evidence of seminal vesicle invasion, the margins were negative and there is no apparent evidence of extracapsular extension. The patient did have follow-up PSAs. His PSA was 0.05 on 10/02/2007, 0.15 on 08/18/2005, 0.28 on 11/19/2010, 0.25 on 09/20/2011, 0.96 on 08/21/2016, 1.21 on 04/11/2017 and 1.29 on 07/08/2017. The patient underwent a CT of the abdomen/pelvis on 07/10/2017 which revealed no evidence of metastatic disease. The patient also underwent a bone scan on 07/10/2017 which revealed no evidence of distant metastatic disease. Dr. Hansen recently started seeing the patient and recommended consideration of salvage radiation therapy. We are now seeing the patient in consultation discuss the role of radiation therapy. Currently, the patient is doing relatively well. He denies any complaints of urinary incontinence. His urinary IPSS score 0/35. His EPIC QoL score is 6/ 60. He has no significant complaints at this point. He began androgen deprivation with Lupron. He then returned to our office to undergo salvage radiation therapy. This was completed 11/18/2017. He received 7020 cGy. Interim History He has been doing well from urinary standpoint. Today he gave an AUA score of 1. He completed and expanded prostate cancer index composite for clinical practice and gave a score of 0 of 12 and urinary incontinence symptoms. He gave a score of 0 12 and urinary irritation symptoms. He gave a score of 0 12 and bowel symptoms. He gave a score of 8 of 12 and sexual symptoms. He did note that this was not a problem. He gave a score of 1 of 12 and hormonal vitality symptoms. His total was 9 of 60. He had a recheck PSA June 19, 2018. That was found to be less than 0.02. His last Lupron injection was November 18, 2017. And that was 22.5 mg. He has been having some issues with back pain. This began in the left lower back. This then began to cause discomfort in the thoracic spine area. He has been seen in follow-up and had an x-ray of the thoracic spine which showed degenerative disc changes. He also had a CT of the chest. There was no evidence of any acute aortic injury. No acute intrathoracic pathology. There are degenerative changes seen of the spine. Some nonspecific changes of the esophagus. He also has enlargement of the pulmonary artery which may indicate pulmonary hypertension. The studies were ordered when he was in the emergency room and copies have been sent to his primary care physician. With the ongoing pain he had a recheck PSA and that was very good at less than 0.02. He also has a bone scan ordered for June 25. Allergies Coded Allergies: Oxycodone (Verified Adverse Reaction, Mild, HALLUCINATIONS, 06/15/18) Amoxicillin (Verified Adverse Reaction, Unknown, increased lft's, 06/15/18) gmg Clavulanic Acid (Verified Adverse Reaction, Unknown, increased lft's, 06/15) gmg Home Medications Scheduled Albuterol Hfa (Ventolin Hfa), 2-4 PUFFS INH Q6Hprn Aspirin (Aspirin Chewable), 81 MG PO QAM Clobetasol Propionate (Clobetasol Propionate Cream 0.05%), 1 APPLN EXT PRN Cyanocobalamin (Vitamin B-12), 1,000 MCG PO PRN Lisinopril (Prinivil), 20 MG PO QAM Multivitamin (Multivitamin), 1 TAB PO DAILY Omeprazole (Prilosec), 20 MG PO QAM Potassium (Potassium), 2 TABS PO BID Trolamine Salicylate (Aspercreme), 1 DOSE TOP PRN Valacyclovir (Valtrex), 500 MG PO DIRECTED Scheduled PRN Hydrocortisone (Proctosol Hc), 1 APPLN [place] BID PRN for PRN Ibuprofen (Motrin), 800 MG PO TID PRN for N Psyllium (Metamucil), 1 TSP PO Q2D PRN for PRN Tramadol (Ultram), 100 MG PO Q4H PRN for Pain Review of Systems Gastrointestinal: Symptoms: Constipation GI Comments: had constipation this week, took MOM , had a BM last night Oral: Symptoms: No Problems Respiratory: Symptoms: WNL Urinary: Symptoms: Nocturia Comments: occ nocturia times 1 Skin: Other Skin Symptoms: "has sun burn on chest from light therapy " Physical Exam Vital Signs Date Time Temp Pulse Resp B/P (MAP) Pulse Ox O2 Delivery O2 Flow Rate FiO2 06/23/18 14:04 36.6 90 20 114/67 96 Fatigue: None General Appearance: no apparent distress Eyes: normal inspection, EOMI ENT: normal ENT inspection, hearing grossly normal Respiratory/Chest: lungs clear, no respiratory distress, no accessory muscle use Cardiovascular: regular rate, rhythm, no gallop, no murmur Abdomen: normal bowel sounds, non tender, soft, no organomegaly Extremities: no pedal edema Neurologic/Psychiatric: no motor/sensory deficits, alert, normal mood/affect Skin: warm/dry Pain Management Patient Reports Pain: Yes Side: Bilateral Pain Location: Back Patient Preferred Pain Scale: 0 - 10 Initial Pain Intensity: 7.0 Pain Management Plan Back pain is currently being followed by and managed through the primary care physician's office. Laboratory Laboratory Results: were reviewed Laboratory Comments: PSA on June 19, 2018 was less than 0.02. Pathology Pathology Results: and pertinent findings noted in HPI Imaging Imaging Studies: were reviewed Imaging Comments Reviewed in the interim history. Assessment & Plan Plan: The patient seen today by Dr. Vital. We have reviewed his recent PSA that is excellent. His primary care provider is following him for the back pain. Bone scan has been ordered. Will be reviewed when that that is completed. We asked him to return to our office in 1 year. He may call if he has any questions or concerns in the interim. He will also follow-up with Dr. Hansen in approximately 6 months. Assessment & Plan (Attending) I agree with note created by Vivian Cain PA-C. I reviewed the patient's chart and information with her. I have examined and evaluated the patient. I reviewed relevant clinical information and answered the patient's and/or family' s questions. ASSOCIATE MANAGER Total Time In Follow-Up I spent 20 minutes speaking to the patient in performing examination. I spent 15 minutes reviewing information and completing this note. AK Total Time (Attending) In Follow-Up I spent 15 minutes examining and counseling the patient. ASSOCIATE MANAGER Copy To Marcial Franks, D.O.; Tu Hansen MD
== END | disposition home or self-care (01) ==
LOC: C.ONC 13:54
PROVIDERS: ATTEND Physician Assistant Medical
DX: Z08 Encounter for follow-up examination after completed treatment for malignant neoplasm (principal); Z92.3 Personal history of irradiation; Z85.46 Personal history of malignant neoplasm of prostate

== ENCOUNTER 2019-11-07 15:38 | Inpatient (IN) ==
[2019-11-07] MEDS ORDERED: SODIUM CHLORIDE 0.9% 1000ML 500 ML IV ONE (15:54)
[2019-11-07] MEDS ORDERED: ONDANSETRON INJ 2 MG/ML 2 ML VIAL IV STA (15:54)
[2019-11-07 16:27] LABS: Basophils # (auto) 0.03 K/uL (0-0.2); Basophils % (auto) 0.3 %; Eosinophils # (auto) 0.01 K/uL (0-0.5); Eosinophils % (auto) 0.1 %; Hematocrit (blood only) 42.9 % (42-52); Hemoglobin 14.3 g/dL (14.0-18.0); Immature Granulocytes # (auto) 0.07 K/uL (0.00-0.02); Immature Granulocytes % (auto) 0.7 %; Lymphocytes # (auto) 1.81 K/uL (1.2-3.4); Mean Corpuscular Hemoglobin 30.3 pg (25-34); Mean Corpuscular Hgb Conc 33.3 g/dL (32-36); Mean Corpuscular Volume 90.9 fL (80-100); Mean Platelet Volume 10.8 fL (7.4-10.4); Monocytes # (auto) 1.62 K/uL (0.11-0.59); Neutrophils # (auto) 5.98 K/uL (1.4-6.5); Neutrophils % (auto) 62.9 %; Platelet Count 278 K/uL (130-400); RDW Coefficient of Variation 14.9 % (11.5-14.5); RDW Standard Deviation 49.8 fL (36.4-46.3); Red Blood Count 4.72 M/uL (4.7-6.1); White Blood Count 9.52 K/uL (4.8-10.8)
[2019-11-07 16:47] LABS: Albumin Level 3.6 gm/dl (3.4-5.0); BUN Creatinine Ratio 11.2 (10-20); Bilirubin Direct 0.1 mg/dl (0-0.2); Bilirubin,Total 0.7 mg/dl (0.2-1); Calcium 8.6 mg/dl (8.5-10.1); Creatinine Clr Calc Pharmacy 52.5 ml/min; Est GFR (African American) 93.9; Magnesium 0.7 mg/dl (1.8-2.4); Potassium 3.4 mmol/L (3.5-5.1); Total Protein 7.9 gm/dl (6.4-8.2)
[2019-11-07] MEDS: MAGNESIUM SULFATE / D5W 1 GM/100 ML BAG IV SCH ×2 (17:18→20:48)
[2019-11-07] MEDS ORDERED: IOVERSOL 100ml IV PRN (17:27)
--- NOTE | 2019-11-07 17:41 | CT Scan Report ---
CT abd pelvis IV con only CT DOSE: 301.52 mGy.cm HISTORY: Pain. Nausea. abdominal pain vomitting TECHNIQUE: Multiaxial CT images of the abdomen and pelvis were performed following the use of intrave nous contrast. A dose lowering technique was utilized adhering to the principles of ALARA. COMPARISON STUDY: 07/10/2017 FINDINGS: Lung bases are clear. Fixed hiatal hernia. The kidneys are considered negative for hydronep hrosis. The abdominal bowel pattern is considered nonobstructive. Moderate wall thickening as well as diverticular formation of the descending colon as well as the pro ximal to mid sigmoid. There is a trace amount of pericolonic infiltrative change in the mid sigmoid r egion. This appearance suggests acute diverticulitis superimposed upon chronic diverticular change. No evidence for abscess collection or obstruction. Small periumbilical hernia containing a short segment loop of small bowel. This appears to be nonobst ructive finding. IMPRESSION: 1. Chronic descending as well as sigmoid diverticulosis with mild acute diverticulitis of the mid sig moid. 2. No evidence for abscess collection or obstruction. 3. Small periumbilical hernia containing a short segment of small bowel. This appears to be nonobstru ctive finding. ACT 112: Negative or not required by law. The above report was generated using voice recognition software. It may contain grammatical, syntax or spelling errors. Electronically signed by: Fernandez Llamas M.D. 11/07/2019 5:39 PM
[2019-11-07] MEDS ORDERED: metroNIDAZOLE 500 MG/100 ML BAG IV STA (17:42)
[2019-11-07] MEDS ORDERED: cefTRIAXone SODIUM 1,000 MG/50 ML BAG IV STA (17:42)
[2019-11-07] MEDS ORDERED: ALBUT/IPRATROP 3MG/0.5MG NEB 3 ML VIAL NEB STA (18:10)
--- NOTE | 2019-11-07 18:11 | XRay Report ---
XR chest 1V portable CLINICAL HISTORY: hypoxia dyspnea COMPARISON STUDY: 07/31/2018 FINDINGS: Moderate cardiomegaly. Prominent pulmonary vasculature. Diaphragms are flattened but smooth . IMPRESSION: Mild congestive failure. ACT 112: Negative or not required by law. The above report was generated using voice recognition software. It may contain grammatical, syntax or spelling errors. Electronically signed by: Fernandez Llamas M.D. 11/07/2019 6:09 PM
[2019-11-07 19:01] LABS: Influenza B virus by PCR Neg for Influ B (Neg)
[2019-11-07] MEDS ORDERED: OSELTAMIVIR PHOSPHATE 75 MG CAP PO STA (19:06)
[2019-11-07 19:09] LABS: Appearance Urine Clear (Clear); Bacteria Urine Automated Negative (Negative); Bilirubin Urine Negative (Negative); Blood Urine 1+ (Negative); Cast Urine Automated 0 /lpf (0-5); Color Urine Yellow; Glucose Urine UA Negative (Negative); Ketones Urine 2+ (Negative); Leukocyte Esterase Urine Negative (Negative); Nitrite Urine Negative (Negative); Protein Urine 2+ (Negative); RBC Urine Automated 0-4 /hpf (0-4); Specific Gravity Urine > 1.045 (1.000-1.030); Urobilinogen Urine Negative (Negative); pH Urine 6.5 (4.5-7.5)
[2019-11-07] MEDS ORDERED: OPTIRAY 320 125ml IV PRN (19:23)
--- NOTE | 2019-11-07 19:35 | CT Scan Report ---
CT angio chest PE protocol CT DOSE: 334.04 mGy.cm HISTORY: Chest pain. Dyspnea. ro PE TECHNIQUE: Multiaxial CT images of the chest were performed following the intravenous administration of contrast to evaluate the pulmonary arteries. Maximal intensity projection images were also obtaine d. A dose lowering technique was utilized adhering to the principles of ALARA. COMPARISON STUDY: None. FINDINGS: Normal thoracic aorta. Pulmonary vasculature enhances appropriately. No filling defects. Large fixed hiatal hernia. Lungs are considered clear. IMPRESSION: 1. Negative thoracic aorta. 2. No evidence for pulmonary embolus. 3. Lungs are clear. 4. Large fixed hiatal hernia. ACT 112: Negative or not required by law. The above report was generated using voice recognition software. It may contain grammatical, syntax or spelling errors. Electronically signed by: Fernandez Llamas M.D. 11/07/2019 7:34 PM
--- NOTE | 2019-11-07 22:22 | History & Physical Report ---
Date of Service November 07, 2019 Assessment & Plan (1) Flu-like symptoms: (2) Influenza: Present on admission with flu like symptoms febrile Influenza virus PCR type A positive Continue oseltamivir x5 days (3) Diverticulitis: Abdominal pain associated with vomiting Recently completed treatment with Cipro and Flagyl a week ago CT abd showed chronic descending as well as sigmoid diverticulosis with mild acute diverticulitis of the mid sigmoid. Received ceftriaxone and metronidazole in the ER, will continue antibiotic Keep NPO except ice and chips Will do gentle hydration and antiemitic Will check blood cx Schedule outpatient to get colonoscopy and EGD on 11/16/19 We will consult GI Monitor Electrolytes (4) Hypomagnesemia: Related to vomiting and poor oral intake Mg on admission 0.7 Mg replaced Will monitor mg level Hypokalemia K 3.4 on admission K replaced Monitor BMP HTN BP stable Continue amlodipine and lisinopril DVT px on heparin subq Code status FULL CODE History of Present Illness Chief Complaint: Abdominal pain associated with vomiting Primary Care Provider: Marcial Franks DO 79 years old male with past medical history of GERD, Martin's, hypertension, prostate cancer status post chemo/radiation and resection, COPD, umbilical hernia status post repair without mesh on November 2017, psoriatic arthritis presented to the ER with abdominal pain associated with vomiting. Patient said for the past few weeks he has been having vomiting during defecation. He saw GI on 02/12/19 and CAT scan was ordered that showed asymmetric wall thickening of the mid sigmoid colon favored to be chronic mid sigmoid colon diverticulitis. He was prescribed Cipro and Flagyl which he completed the course last week. He said his symptoms were improved then about 3 days ago he started to have flu like symptoms with productive cough. He said every time he coughed he vomited. He said that he is having abdominal pain located below his umbilical area. He said pain is intermittent and moderate in intensity. patient said that he has to carry a container with him everywhere he goes to vomit when he cough and during defecation again. He said that he does not have any energy and he feels very weak and chills. He said he has not been eating or drinking due to the vomiting. He said that he scheduled to have an endoscopy and colonoscopy on November 16 with gastro. In the ER labs done show magnesium 0.7, potassium 3.4 and influenza PCR type A positive. CT abd repeat today showed Chronic descending as well as sigmoid diverticulosis with mild acute diverticulitis of the mid sigmoid. Denies any chest pain, palpitation, dizziness, shortness of breath. Allergies Allergy/AdvReac Type Severity Reaction Status Date / Time oxycodone AdvReac Mild HALLUCINATI Verified 11/07/19 16:43 ONS amoxicillin AdvReac Unknown increased Verified 11/07/19 16:43 lft's clavulanic acid AdvReac Unknown increased Verified 11/07/19 16:43 lft's Home Medications Home Medications Medication Instructions Recorded Confirmed Type albuterol sulfate [Ventolin HFA] 2 puff INHALATION Q4H PRN 07/31/18 11/07/19 History amlodipine 2 tabs PO DAILY 07/31/18 11/07/19 History aspirin 81 mg PO DAILY 07/31/18 11/07/19 History lisinopril 30 mg PO DAILY 07/31/18 11/07/19 History omeprazole 20 mg PO DAILY 07/31/18 11/07/19 History potassium chloride 2 tabs PO DAILY 07/31/18 11/07/19 History tramadol 2 tabs PO Q8 PRN 07/31/18 11/07/19 History valacyclovir 500 mg PO BID PRN 07/31/18 11/07/19 History atorvastatin 10 mg PO DAILY 11/07/19 11/07/19 History clobetasol [Temovate] 1 applic TOPICAL BID PRN 11/07/19 11/07/19 History propranolol 80 mg PO DAILY 11/07/19 11/07/19 History triamcinolone acetonide 1 applic TOPICAL BID PRN 11/07/19 11/07/19 History Past Med/Surg History Medical History (Updated 11/07/19 @ 22:22 by Marv Conley MD) Acid reflux (Chronic) Atrial flutter with rapid ventricular response (Acute) Cervical disc displacement (Chronic) COPD (chronic obstructive pulmonary disease) (Chronic) History of paroxysmal supraventricular tachycardia (Chronic) HLD (hyperlipidemia) (Chronic) HTN (hypertension) (Chronic) Hyperlipidemia Hypokalemia (Acute) Hypomagnesemia (Acute) Prostate cancer (Resolved 10/13/03) "Rising PSA Status post biopsy 10/13/2003 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 Lupron 22.5 mg IM 08/22/2017 Lupron 22.5 mg IM 11/18/2017 Status post completion of salvage radiation therapy 11/18/2017. 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 Nausea. abdominal pain vomitting TECHNIQUE: Multiaxial CT images of the abdomen and pelvis were performed following the use of intravenous contrast. A dose lowering technique was utilized adhering to the principles of ALARA. COMPARISON STUDY: 07/10/2017 FINDINGS: Lung bases are clear. Fixed hiatal hernia. The kidneys are considered negative for hydronephrosis. The abdominal bowel pattern is considered nonobstructive. Moderate wall thickening as well as diverticular formation of the descending colon as well as the proximal to mid sigmoid. There is a trace amount of pericolonic infiltrative change in the mid sigmoid region. This appearance suggests acute diverticulitis superimposed upon chronic diverticular change. No evidence for abscess collection or obstruction. Small periumbilical hernia containing a short segment loop of small bowel. This appears to be nonobstructive finding. IMPRESSION: 1. Chronic descending as well as sigmoid diverticulosis with mild acute diverticulitis of the mid sigmoid. 2. No evidence for abscess collection or obstruction. 3. Small periumbilical hernia containing a short segment of small bowel. This appears to be nonobstructive finding. ACT 112: Negative or not required by law. The above report was generated using voice recognition software. It may contain grammatical, syntax or spelling errors. Electronically signed by: Fernandez Llamas M.D. 11/07/2019 5:39 PM Dictated: 11/07/194 Transcribed: 11/07/191733 CT angio chest PE protocol CT DOSE: 334.04 mGy.cm HISTORY: Chest pain. Dyspnea. ro PE TECHNIQUE: Multiaxial CT images of the chest were performed following the intravenous administration of contrast to evaluate the pulmonary arteries. Maximal intensity projection images were also obtained. A dose lowering technique was utilized adhering to the principles of ALARA. COMPARISON STUDY: None. FINDINGS: Normal thoracic aorta. Pulmonary vasculature enhances appropriately. No filling defects. Large fixed hiatal hernia. Lungs are considered clear. IMPRESSION: 1. Negative thoracic aorta. 2. No evidence for pulmonary embolus. 3. Lungs are clear. 4. Large fixed hiatal hernia. ACT 112: Negative or not required by law. The above report was generated using voice recognition software. It may contain grammatical, syntax or spelling errors. Electronically signed by: Fernandez Llamas M.D. 11/07/2019 7:34 PM Dictated: 11/07/191930 Transcribed: 11/07/191930 XR chest 1V portable CLINICAL HISTORY: hypoxia dyspnea COMPARISON STUDY: 07/31/2018 FINDINGS: Moderate cardiomegaly. Prominent pulmonary vasculature. Diaphragms are flattened but smooth. IMPRESSION: Mild congestive failure. ACT 112: Negative or not required by law. The above report was generated using voice recognition software. It may contain grammatical, syntax or spelling errors. Electronically signed by: Fernandez Llamas M.D. 11/07/2019 6:09 PM Dictated: 11/07/191808 Transcribed: 11/07/191808 Results & Data Vital Signs (Past 12 Hours) Vital Signs Temp Pulse Pulse Resp BP Pulse Ox 11/07/19 21:20 80 21 92 11/07/19 21:10 83 21 90 11/07/19 21:01 79 21 92 11/07/19 21:00 84 18 128/80 92 11/07/19 20:50 82 23 93 11/07/19 20:40 86 33 H 95 11/07/19 20:31 86 20 96 11/07/19 20:30 86 33 H 147/74 H 96 11/07/19 20:20 87 18 94 05 20:10 84 25 H 96 11/07/19 20:01 81 26 H 96 11/07/19 20:00 82 25 H 131/78 96 11/07/19 19:50 84 18 95 11/07/19 19:44 92 H 32 H 138/80 11/07/19 19:41 93 H 12 11/07/19 19:10 88 22 96 11/07/19 19:09 38.2 C H 11/07/19 19:00 86 26 H 96 11/07/19 18:50 90 23 93 11/07/19 18:40 89 25 H 95 11/07/19 18:30 90 39 H 11/07/19 18:20 93 H 18 11/07/19 18:14 94 H 21 97 11/07/19 18:10 93 H 29 H 11/07/19 18:01 95 H 33 H 11/07/19 18:00 93 H 29 H 146/80 H 11/07/19 17:50 91 H 35 H 95 11/07/19 17:45 95 H 22 128/79 87 L 11/07/19 17:40 93 H 36 H 88 L 11/07/19 17:37 96 H 31 H 126/57 L 89 L 11/07/19 17:36 95 H 29 H 90 11/07/19 17:20 96 H 28 H 90 11/07/19 17:10 96 H 26 H 92 11/07/19 17:01 92 H 29 H 92 11/07/19 17:00 92 H 37 H 132/76 92 11/07/19 16:50 92 H 28 H 91 11/07/19 16:40 93 H 26 H 91 11/07/19 16:30 95 H 35 H 94 11/07/19 16:22 90 11/07/19 16:21 94 H 28 H 152/96 H 91 11/07/19 16:20 94 H 30 H 91 11/07/19 16:10 96 H 28 H 11/07/19 16:07 94 H 33 H 11/07/19 15:41 36.7 C 104 H 20 138/81 95
--- NOTE | 2019-11-07 22:25 | Emergency Department Note ---
Entered by Lexy Cárdenas acting as a scribe for History of Present Illness General Chief complaint: Vomiting Stated complaint: VOMITING FOR PAST 2 DAYS Time Seen by Provider: 11/07/19 15:50 History of Present Illness Provider complaint: lower abdominal pain Onset (ago): day(s) 2 Location: abdomen (lower) Pain Consistency: + other (episode) Maximum Pain Intensity: 9 Associated symptoms: + fever/chills and + nausea/vomiting; no chest pain and no shortness of breath Treatments prior to arrival: none The patient is a 79 year old male who presents to the ED with complaints of an episode of lower abdominal pain that started 2 days ago. The patient states that he also has nausea, vomiting and possible fevers. The patient notes that he has not eaten in 2 days. The patient denies hemoptysis, chest pain, shortness of breath, dysuria, diarrhea, difficulty moving his bowels and alcohol use. The patient notes that he had an umbilical hernia repair 1 year ago. The patient denies taking any treatments prior to arrival. Home Medications Home Medications Medication Instructions Recorded Confirmed Type albuterol sulfate [Ventolin HFA] 2 puff INHALATION Q4H PRN 07/31/18 11/07/19 History amlodipine 2 tabs PO DAILY 07/31/18 11/07/19 History aspirin 81 mg PO DAILY 07/31/18 11/07/19 History lisinopril 30 mg PO DAILY 07/31/18 11/07/19 History omeprazole 20 mg PO DAILY 07/31/18 11/07/19 History potassium chloride 2 tabs PO DAILY 07/31/18 11/07/19 History tramadol 2 tabs PO Q8 PRN 07/31/18 11/07/19 History valacyclovir 500 mg PO BID PRN 07/31/18 11/07/19 History atorvastatin 10 mg PO DAILY 11/07/19 11/07/19 History clobetasol [Temovate] 1 applic TOPICAL BID PRN 11/07/19 11/07/19 History propranolol 80 mg PO DAILY 11/07/19 11/07/19 History triamcinolone acetonide 1 applic TOPICAL BID PRN 11/07/19 11/07/19 History Allergies Allergy/AdvReac Type Severity Reaction Status Date / Time oxycodone AdvReac Mild HALLUCINATI Verified 11/07/19 16:43 ONS amoxicillin AdvReac Unknown increased Verified 11/07/19 16:43 lft's clavulanic acid AdvReac Unknown increased Verified 11/07/19 16:43 lft's Past Med/Surg History Medical History (Updated 11/07/19 @ 22:22 by Marv Conley MD) Acid reflux (Chronic) Atrial flutter with rapid ventricular response (Acute) Cervical disc displacement (Chronic) COPD (chronic obstructive pulmonary disease) (Chronic) History of paroxysmal supraventricular tachycardia (Chronic) HLD (hyperlipidemia) (Chronic) HTN (hypertension) (Chronic) Hyperlipidemia Hypokalemia (Acute) Hypomagnesemia (Acute) Prostate cancer (Resolved 10/13/03) "Rising PSA Status post biopsy 10/13/2003 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 Lupron 22.5 mg IM 08/22/2017 Lupron 22.5 mg IM 11/18/2017 Status post completion of salvage radiation therapy 11/18/2017. 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 Status post radical peritoneal prostatectomy 01/04/2004 Stage pT2b pNXM0 Rising PSA post prostatectomy PSA 07/08/2017 at 1.290" Psoriasis (Chronic) Surgical History (Updated 11/07/19 @ 20:35 by Lexy Cárdenas) H/O hand surgery H/O radical prostatectomy H/O umbilical hernia repair History of tonsillectomy and adenoidectomy Hx of appendectomy Social History Preferred Language: Yi Communication Ability: Effective Dining Services Manager Required: No Beliefs That Will Affect Care: None Current Living Situation: Alone Feels Safe at Home: Yes Smoking Status: Never smoker Tobacco Type: cigarettes ; Second Hand Exposure: No ; Hx Alcohol Use: Yes Hx Substance Use: No Review of Systems See HPI for pertinent positives & negatives. and A total of 10 systems reviewed and were otherwise negative Physical Exam Vital Signs Vital Signs - 24 hr 11/07/19 15:41 11/07/19 16:07 11/07/19 16:10 Temperature 36.7 C Temperature Source Oral Pulse Rate 104 H 94 H 96 H Pulse Rate [Right] Pulse Rate from SpO2 Sensor Respiratory Rate 20 33 H 28 H Respiratory Effort / Characteristics Blood Pressure 138/81 Blood Pressure Mean 100 Pulse Oximetry 95 Oxygen Delivery Method Room Air Oxygen Flow Rate Sepsis Recent Fever Within 48 Hours No Sepsis New/Unexplained Change in Mental Status No Sepsis Action Taken by Nursing No Action Required 11/07/19 16:20 11/07/19 16:21 11/07/19 16:22 Temperature Temperature Source Pulse Rate 94 H 94 H Pulse Rate [Right] Pulse Rate from SpO2 Sensor 90 94 H Respiratory Rate 30 H 28 H Respiratory Effort / Characteristics Blood Pressure 152/96 H Blood Pressure Mean 129 Pulse Oximetry 91 91 90 Oxygen Delivery Method Room Air Oxygen Flow Rate Sepsis Recent Fever Within 48 Hours Sepsis New/Unexplained Change in Mental Status Sepsis Action Taken by Nursing 11/07/19 16:30 11/07/19 16:40 11/07/19 16:50 Temperature Temperature Source Pulse Rate 95 H 93 H 92 H Pulse Rate [Right] Pulse Rate from SpO2 Sensor 97 H 93 H 92 H Respiratory Rate 35 H 26 H 28 H Respiratory Effort / Characteristics Blood Pressure Blood Pressure Mean Pulse Oximetry 94 91 91 Oxygen Delivery Method Oxygen Flow Rate Sepsis Recent Fever Within 48 Hours Sepsis New/Unexplained Change in Mental Status Sepsis Action Taken by Nursing 11/07/19 17:00 11/07/19 17:01 11/07/19 17:10 Temperature Temperature Source Pulse Rate 92 H 92 H 96 H Pulse Rate [Right] Pulse Rate from SpO2 Sensor 92 H 92 H 93 H Respiratory Rate 37 H 29 H 26 H Respiratory Effort / Characteristics Blood Pressure 132/76 Blood Pressure Mean 98 Pulse Oximetry 92 92 92 Oxygen Delivery Method Oxygen Flow Rate Sepsis Recent Fever Within 48 Hours Sepsis New/Unexplained Change in Mental Status Sepsis Action Taken by Nursing 11/07/19 17:20 11/07/19 17:36 11/07/19 17:37 Temperature Temperature Source Pulse Rate 96 H 95 H 96 H Pulse Rate [Right] Pulse Rate from SpO2 Sensor 96 H 93 H 96 H Respiratory Rate 28 H 29 H 31 H Respiratory Effort / Characteristics Blood Pressure 126/57 L Blood Pressure Mean 98 Pulse Oximetry 90 90 89 L Oxygen Delivery Method Oxygen Flow Rate Sepsis Recent Fever Within 48 Hours Sepsis New/Unexplained Change in Mental Status Sepsis Action Taken by Nursing 11/07/19 17:40 11/07/19 17:45 11/07/19 17:50 Temperature Temperature Source Pulse Rate 93 H 95 H 91 H Pulse Rate [Right] Pulse Rate from SpO2 Sensor 94 H 95 H 90 Respiratory Rate 36 H 22 35 H Respiratory Effort / Characteristics Blood Pressure 128/79 Blood Pressure Mean 114 Pulse Oximetry 88 L 87 L 95 Oxygen Delivery Method Nasal Cannula Oxygen Flow Rate 2 Sepsis Recent Fever Within 48 Hours Sepsis New/Unexplained Change in Mental Status Sepsis Action Taken by Nursing 11/07/19 18:00 11/07/19 18:01 11/07/19 18:10 Temperature Temperature Source Pulse Rate 93 H 95 H 93 H Pulse Rate [Right] Pulse Rate from SpO2 Sensor Respiratory Rate 29 H 33 H 29 H Respiratory Effort / Characteristics Blood Pressure 146/80 H Blood Pressure Mean 114 Pulse Oximetry Oxygen Delivery Method Oxygen Flow Rate Sepsis Recent Fever Within 48 Hours Sepsis New/Unexplained Change in Mental Status Sepsis Action Taken by Nursing 11/07/19 18:14 11/07/19 18:20 11/07/19 18:30 Temperature Temperature Source Pulse Rate 93 H 90 Pulse Rate [Right] 94 H Pulse Rate from SpO2 Sensor Respiratory Rate 21 18 39 H Respiratory Effort / Characteristics Non-Labored Spontaneous Blood Pressure Blood Pressure Mean Pulse Oximetry 97 Oxygen Delivery Method Nasal Cannula Oxygen Flow Rate 3 Sepsis Recent Fever Within 48 Hours Sepsis New/Unexplained Change in Mental Status Sepsis Action Taken by Nursing 11/07/19 18:40 11/07/19 18:50 11/07/19 19:00 Temperature Temperature Source Pulse Rate 89 90 86 Pulse Rate [Right] Pulse Rate from SpO2 Sensor 89 90 86 Respiratory Rate 25 H 23 26 H Respiratory Effort / Characteristics Blood Pressure Blood Pressure Mean Pulse Oximetry 95 93 96 Oxygen Delivery Method Oxygen Flow Rate Sepsis Recent Fever Within 48 Hours Sepsis New/Unexplained Change in Mental Status Sepsis Action Taken by Nursing 11/07/19 19:09 11/07/19 19:10 11/07/19 19:41 Temperature 38.2 C H Temperature Source Oral Pulse Rate 88 93 H Pulse Rate [Right] Pulse Rate from SpO2 Sensor 86 Respiratory Rate 22 12 Respiratory Effort / Characteristics Blood Pressure Blood Pressure Mean Pulse Oximetry 96 Oxygen Delivery Method Oxygen Flow Rate Sepsis Recent Fever Within 48 Hours Sepsis New/Unexplained Change in Mental Status Sepsis Action Taken by Nursing 11/07/19 19:44 11/07/19 19:50 11/07/19 20:00 Temperature Temperature Source Pulse Rate 92 H 84 82 Pulse Rate [Right] Pulse Rate from SpO2 Sensor 84 82 Respiratory Rate 32 H 18 25 H Respiratory Effort / Characteristics Blood Pressure 138/80 131/78 Blood Pressure Mean 107 93 Pulse Oximetry 95 96 Oxygen Delivery Method Oxygen Flow Rate Sepsis Recent Fever Within 48 Hours Sepsis New/Unexplained Change in Mental Status Sepsis Action Taken by Nursing 11/07/19 20:01 11/07/19 20:10 11/07/19 20:20 Temperature Temperature Source Pulse Rate 81 84 87 Pulse Rate [Right] Pulse Rate from SpO2 Sensor 81 84 86 Respiratory Rate 26 H 25 H 18 Respiratory Effort / Characteristics Blood Pressure Blood Pressure Mean Pulse Oximetry 96 96 94 Oxygen Delivery Method Oxygen Flow Rate Sepsis Recent Fever Within 48 Hours Sepsis New/Unexplained Change in Mental Status Sepsis Action Taken by Nursing 11/07/19 20:30 11/07/19 20:31 11/07/19 20:40 Temperature Temperature Source Pulse Rate 86 86 86 Pulse Rate [Right] Pulse Rate from SpO2 Sensor 86 89 87 Respiratory Rate 33 H 20 33 H Respiratory Effort / Characteristics Blood Pressure 147/74 H Blood Pressure Mean 106 Pulse Oximetry 96 96 95 Oxygen Delivery Method Oxygen Flow Rate Sepsis Recent Fever Within 48 Hours Sepsis New/Unexplained Change in Mental Status Sepsis Action Taken by Nursing 11/07/19 20:50 11/07/19 21:00 11/07/19 21:01 Temperature Temperature Source Pulse Rate 82 84 79 Pulse Rate [Right] Pulse Rate from SpO2 Sensor 82 83 79 Respiratory Rate 23 18 21 Respiratory Effort / Characteristics Blood Pressure 128/80 Blood Pressure Mean 95 Pulse Oximetry 93 92 92 Oxygen Delivery Method Oxygen Flow Rate Sepsis Recent Fever Within 48 Hours Sepsis New/Unexplained Change in Mental Status Sepsis Action Taken by Nursing 11/07/19 21:10 11/07/19 21:20 Temperature Temperature Source Pulse Rate 83 80 Pulse Rate [Right] Pulse Rate from SpO2 Sensor 82 80 Respiratory Rate 21 21 Respiratory Effort / Characteristics Blood Pressure Blood Pressure Mean Pulse Oximetry 90 92 Oxygen Delivery Method Oxygen Flow Rate Sepsis Recent Fever Within 48 Hours Sepsis New/Unexplained Change in Mental Status Sepsis Action Taken by Nursing GENERAL: He is oriented to person, place, and time. He appears well-developed and well-nourished. He does not appear distressed. HENT: Exam performed. - Head: Normocephalic and atraumatic. - Right Ear: External ear normal. No mastoid tenderness. - Left Ear: External ear normal. No mastoid tenderness. - Mouth/Throat: Dry mucous membranes. The oropharynx is clear. No trismus in the jaw. No dental abscesses or uvula swelling. No oropharyngeal exudate or tonsillar abscesses. EYES: Conjunctivae and EOM are normal. Pupils are equal, round, and reactive to light. Right eye exhibits no discharge. Left eye exhibits no discharge. No scleral icterus. NECK: Normal range of motion. Neck supple. No JVD present. No spinous process tenderness present. No carotid bruit present. No rigidity. No tracheal deviation and normal range of motion present. No Brudzinski's sign and no Kernig's sign noted. CV: Normal rate, irregular rhythm, normal heart sounds and intact distal pulses. There is no peripheral edema. Palpable radial pulses bue. PULM/CHEST: Effort normal and breath sounds normal. No respiratory distress. No stridor. He has no wheezes. He has no rales. - Chest Wall: He exhibits no tenderness. ABD: The abdomen is soft. Bowel sounds are normal. He has no distension. No mass is present. There is no tenderness. There is no rebound, no guarding, no Glez's sign and no tenderness at McBurney's point. Rovsig negative. MUSC/SKEL: Normal range of motion. There is no peripheral edema, tenderness or deformity. LYMPH: No cervical adenopathy. NEURO: He is alert and oriented to person, place, and time. He has normal strength. No cranial nerve deficit or sensory deficit. Coordination and gait normal. GCS eye subscore is 4. GCS verbal subscore is 5. GCS motor subscore is 6. Cerebellar tests wnl. SKIN: Skin is warm and dry. He is not diaphoretic. PSYCH: He has a normal mood and affect. Behavior is normal. Judgment and thought content normal. Course Course 1550: Past medical records reviewed. The patient was evaluated in room A10. A complete history and physical exam was performed. 1715: Labs show a magnesium of 0.7. Otherwise within normal limits. Patient's imaging shows diverticulitis. Given the patient's low magnesium, 2 g of magnesium IV piggyback ordered for the patient. CT showed diverticulitis given the patient's allergy to Augmentin, Rocephin and Flagyl started. [facility] hospitalist team was paged. 1730: I went to repeat assessed the patient. The patient was acutely hypoxic. Magnesium was being infused at this time.. The patient was alert and oriented x3. His reflexes were within normal limits, there were no decrease in relex time. It is highly unlikely that the patient's hypoxia is due to decreased ventilation due to the magnesium infusion given the normal mental status, normal blood pressure, and normal reflexes. However, given the hypoxia, the patient's magnesium rate infusion was decreased. Patient was put on supplemental oxygen which improved his oxygen saturation. On repeat lung exam, the patient is having wheezing with minimal rales at the bases. It is highly unlikely that the patient went to pulmonary edema due to the IV fluids have ordered as the patient only received 500 cc of fluid over 60 minutes. Chest x-ray was conducted which showed some mild cardiomegaly with some mild cephalization. Given the patient history of atrial flutter and not being on any anticoagulation, there was high suspicion for PE. I did order CTA of the chest. proBNP, flu and troponin were also sent. 1829: Vital signs stable on the nasal cannula. Patient continues have mild wheezes, however the improved after DuoNeb treatment. 1944: Vital signs stable on nasal cannula. Troponin and proBNP are within normal limits. Influenza positive. Given the patient's influenza positive, it is thought that the patient's hypoxia could be more due to influenza. It is again not thought that the patient's hypoxia is due to decreased respirations from magnesium infusion as patient is from maintain normal reflexes, normal mental status, and normal blood pressure. Tamiflu was ordered for the patient. The patient's magnesium rate was increased back to normal. [facility] [place] Le[place]. He will evaluate the patient for further management. Consultations Consultation #1: I discussed the patient's case with Dr. Lea Alcaraz. He will evaluate the patient for further management. Administered Medications Ioversol (Optiray 320 100ml) 94 ml IV ONCE PRN PRN Reason: Interaction Checking Stop: 11/11/19 17:26 Last Admin: 11/07/19 17:27 Dose: 94 ml Documented by: [id number] Ioversol (Optiray 320 125ml) 119 ml IV ONCE PRN PRN Reason: Interaction Checking Stop: 11/11/19 19:22 Last Admin: 11/07/19 19:23 Dose: 119 ml Documented by: [id number] Discontinued Medications Albuterol (Duoneb) 3 ml NEB NOW STA Stop: 11/07/19 18:11 Last Admin: 11/07/19 18:12 Dose: 3 ml Documented by: [id number] Sodium Chloride (Nss 1000ml) 500 mls @ 999 mls/hr IV .Q31M ONE Stop: 11/07/19 16:24 Last Infusion: 11/07/19 16:54 Dose: 0 mls/hr Documented by: [id number] Admin: 11/07/19 16:21 Dose: 999 mls/hr Documented by: [id number] Magnesium Sulfate/Dextrose (Magnesium Sulfate / D5w) 1 gm in 100 mls @ 100 mls/hr IV Q1H JOY Stop: 11/07/19 19:14 Last Infusion: 11/07/19 22:16 Dose: 0 mls/hr Documented by: [id number] Admin: 11/07/19 20:48 Dose: 100 mls/hr Documented by: [id number] Infusion: 11/07/19 20:48 Dose: 0 mls/hr Documented by: [id number] Infusion: 11/07/19 18:17 Dose: 20 mls/hr Documented by: [id number] Admin: 11/07/19 17:18 Dose: 100 mls/hr Documented by: [id number] Ceftriaxone Sodium (Rocephin) 1,000 mg in 50 mls @ 100 mls/hr IV NOW STA Stop: 11/07/19 18:11 Last Infusion: 11/07/19 19:45 Dose: 0 mls/hr Documented by: [id number] Admin: 11/07/19 19:01 Dose: 100 mls/hr Documented by: [id number] Metronidazole (Flagyl) 500 mg in 100 mls @ 100 mls/hr IV NOW STA Stop: 11/07/19 18:41 Last Infusion: 11/07/19 20:39 Dose: 0 mls/hr Documented by: [id number] Admin: 11/07/19 19:04 Dose: 100 mls/hr Documented by: [id number] Ondansetron HCl (Zofran) 4 mg IV NOW STA Stop: 11/07/19 15:55 Last Admin: 11/07/19 16:21 Dose: 4 mg Documented by: [id number] Oseltamivir Phosphate (Tamiflu) 75 mg PO NOW STA Stop: 11/07/19 19:07 Last Admin: 11/07/19 19:44 Dose: 75 mg Documented by: [id number] Critical Care Time Critical Care Time: Yes Total Critical Care Time: 41 I have personally spent 41 minutes of critical care time in the direct management of this patient. This includes bedside care, interpretation of diagnostic studies, and testing, discussion with consultants, patient, and family members, and other required patient management activities. This 41 minutes is in excess of all separately billable procedures. Medical Decision Making Medical Records Attestation: I reviewed the patient's medical records. Home Medications Current Medication List: was personally reviewed by me Laboratory Data Attestation: I reviewed the patient's lab results. Result diagrams: 11/07/19 16:14 11/07/19 16:14 Lab Results 11/07/19 11/07/19 11/07/19 Range/Units 16:14 16:14 18:02 WBC 9.52 (4.8-10.8) K/uL RBC 4.72 (4.7-6.1) M/uL Hgb 14.3 (14.0-18.0) g/dL Hct 42.9 (42-52) % MCV 90.9 (80-100) fL MCH 30.3 (25-34) pg MCHC 33.3 (32-36) g/dL RDW Std Deviation 49.8 H (36.4-46.3) fL RDW Coeff of Arlen 14.9 H (11.5-14.5) % Plt Count 278 (130-400) K/uL MPV 10.8 H (7.4-10.4) fL Immature Gran % (Auto) 0.7 % Neut % (Auto) 62.9 % Lymph % (Auto) 19.0 % Millard % (Auto) 17.0 % Eos % (Auto) 0.1 % Baso % (Auto) 0.3 % Immature Gran # (Auto) 0.07 H (0.00-0.02) K/uL Neut # (Auto) 5.98 (1.4-6.5) K/uL Lymph # (Auto) 1.81 (1.2-3.4) K/uL Millard # (Auto) 1.62 H (0.11-0.59) K/uL Eos # (Auto) 0.01 (0-0.5) K/uL Baso # (Auto) 0.03 (0-0.2) K/uL Sodium 136 (136-145) mmol/L Potassium 3.4 L (3.5-5.1) mmol/L Chloride 99 (98-107) mmol/L Carbon Dioxide 29 (21-32) mmol/L Anion Gap 8.0 (3-11) BUN 10 (7-18) mg/dl Creatinine 0.91 (0.6-1.4) mg/dl Est Cr Clr Drug Dosing 52.5 ml/min Est GFR ( Amer) 93.9 Est GFR (Non-Af Amer) 81.0 BUN/Creatinine Ratio 11.2 (10-20) Glucose 117 H (70-99) mg/dl Lactate 1.2 (0.4-2.0) mmol/L Calcium 8.6 (8.5-10.1) mg/dl Magnesium 0.7 L* (1.8-2.4) mg/dl Total Bilirubin 0.7 (0.2-1) mg/dl Direct Bilirubin 0.1 (0-0.2) mg/dl AST 25 (15-37) U/L ALT 23 (12-78) U/L Alkaline Phosphatase 51 (45-117) U/L Troponin I (0-0.045) ng/ml NT-Pro-B Natriuret Pep 914 (0-1800) pg/ml Total Protein 7.9 (6.4-8.2) gm/dl Albumin 3.6 (3.4-5.0) gm/dl Lipase 57 L (73-393) U/L Urine Color Urine Appearance (Clear) Urine pH (4.5-7.5) Ur Specific Blauvelt (1.000-1.030) Urine Protein (Negative) Urine Glucose (UA) (Negative) Urine Ketones (Negative) Urine Blood (Negative) Urine Nitrite (Negative) Urine Bilirubin (Negative) Urine Urobilinogen (Negative) Ur Leukocyte Esterase (Negative) Urine WBC (Auto) (0-5) /hpf Urine RBC (Auto) (0-4) /hpf U Hyaline Cast (Auto) (0-5) /lpf U Epithel Cells (Auto) (0-5) /lpf Urine Bacteria (Auto) (Negative) Influenza Type A (PCR) (Neg) Influenza Type B (PCR) (Neg) 11/07/19 11/07/19 11/07/19 Range/Units 18:09 18:31 18:40 WBC (4.8-10.8) K/uL RBC (4.7-6.1) M/uL Hgb (14.0-18.0) g/dL Hct (42-52) % MCV (80-100) fL MCH (25-34) pg MCHC (32-36) g/dL RDW Std Deviation (36.4-46.3) fL RDW Coeff of Arlen (11.5-14.5) % Plt Count (130-400) K/uL MPV (7.4-10.4) fL Immature Gran % (Auto) % Neut % (Auto) % Lymph % (Auto) % Millard % (Auto) % Eos % (Auto) % Baso % (Auto) % Immature Gran # (Auto) (0.00-0.02) K/uL Neut # (Auto) (1.4-6.5) K/uL Lymph # (Auto) (1.2-3.4) K/uL Millard # (Auto) (0.11-0.59) K/uL Eos # (Auto) (0-0.5) K/uL Baso # (Auto) (0-0.2) K/uL Sodium (136-145) mmol/L Potassium (3.5-5.1) mmol/L Chloride (98-107) mmol/L Carbon Dioxide (21-32) mmol/L Anion Gap (3-11) BUN (7-18) mg/dl Creatinine (0.6-1.4) mg/dl Est Cr Clr Drug Dosing ml/min Est GFR ( Amer) Est GFR (Non-Af Amer) BUN/Creatinine Ratio (10-20) Glucose (70-99) mg/dl Lactate (0.4-2.0) mmol/L Calcium (8.5-10.1) mg/dl Magnesium (1.8-2.4) mg/dl Total Bilirubin (0.2-1) mg/dl Direct Bilirubin (0-0.2) mg/dl AST (15-37) U/L ALT (12-78) U/L Alkaline Phosphatase (45-117) U/L Troponin I < 0.015 (0-0.045) ng/ml NT-Pro-B Natriuret Pep (0-1800) pg/ml Total Protein (6.4-8.2) gm/dl Albumin (3.4-5.0) gm/dl Lipase (73-393) U/L Urine Color Yellow Urine Appearance Clear (Clear) Urine pH 6.5 (4.5-7.5) Ur Specific Blauvelt > 1.045 H (1.000-1.030) Urine Protein 2+ H (Negative) Urine Glucose (UA) Negative (Negative) Urine Ketones 2+ H (Negative) Urine Blood 1+ H (Negative) Urine Nitrite Negative (Negative) Urine Bilirubin Negative (Negative) Urine Urobilinogen Negative (Negative) Ur Leukocyte Esterase Negative (Negative) Urine WBC (Auto) 1-5 (0-5) /hpf Urine RBC (Auto) 0-4 (0-4) /hpf U Hyaline Cast (Auto) 0 (0-5) /lpf U Epithel Cells (Auto) 10-20 H (0-5) /lpf Urine Bacteria (Auto) Negative (Negative) Influenza Type A (PCR) Pos for Influ A A* (Neg) Influenza Type B (PCR) Neg for Influ B (Neg) Imaging Data Radiologist's Impression: Radiology results as stated below per my review and the radiologist's interpretation: XR chest 1V portable CLINICAL HISTORY: hypoxia dyspnea COMPARISON STUDY: 07/31/2018 FINDINGS: Moderate cardiomegaly. Prominent pulmonary vasculature. Diaphragms are flattened but smooth. IMPRESSION: Mild congestive failure. ACT 112: Negative or not required by law. The above report was generated using voice recognition software. It may contain grammatical, syntax or spelling errors. Electronically signed by: Fernandez Llamas M.D. 11/07/2019 6:[address] angio chest PE protocol CT DOSE: 334.04 mGy.cm HISTORY: Chest pain. Dyspnea. ro PE TECHNIQUE: Multiaxial CT images of the chest were performed following the intravenous administration of contrast to evaluate the pulmonary arteries. Maximal intensity projection images were also obtained. A dose lowering technique was utilized adhering to the principles of ALARA. COMPARISON STUDY: None. FINDINGS: Normal thoracic aorta. Pulmonary vasculature enhances appropriately. No filling defects. Large fixed hiatal hernia. Lungs are considered clear. IMPRESSION: 1. Negative thoracic aorta. 2. No evidence for pulmonary embolus. 3. Lungs are clear. 4. Large fixed hiatal hernia. ACT 112: Negative or not required by law. The above report was generated using voice recognition software. It may contain grammatical, syntax or spelling errors. Electronically signed by: Fernandez Llamas M.D. 11/07/2019 7:[address] abd pelvis IV con only CT DOSE: 301.52 mGy.cm HISTORY: Pain. Nausea. abdominal pain vomitting TECHNIQUE: Multiaxial CT images of the abdomen and pelvis were performed following the use of intravenous contrast. A dose lowering technique was utilized adhering to the principles of ALARA. COMPARISON STUDY: 07/10/2017 FINDINGS: Lung bases are clear. Fixed hiatal hernia. The kidneys are considered negative for hydronephrosis. The abdominal bowel pattern is considered nonobstructive. Moderate wall thickening as well as diverticular formation of the descending colon as well as the proximal to mid sigmoid. There is a trace amount of pericolonic infiltrative change in the mid sigmoid region. This appearance suggests acute diverticulitis superimposed upon chronic diverticular change. No evidence for abscess collection or obstruction. Small periumbilical hernia containing a short segment loop of small bowel. This appears to be nonobstructive finding. IMPRESSION: 1. Chronic descending as well as sigmoid diverticulosis with mild acute diverticulitis of the mid sigmoid. 2. No evidence for abscess collection or obstruction. 3. Small periumbilical hernia containing a short segment of small bowel. This appears to be nonobstructive finding. ACT 112: Negative or not required by law. The above report was generated using voice recognition software. It may contain grammatical, syntax or spelling errors. Electronically signed by: Fernandez Llamas M.D. 11/07/2019 5:39 PM ECG Data Attestation: I personally reviewed and interpreted this ECG as follows: Indication: + vomiting Rate (beats per minute): 92 Rhythm: + sinus rhythm ECG Intervals/blocks: + Normal QRS, + Normal ID and + Normal QT-c ECG ST segments: no ST depression and no ST elevation Blood Pressure Blood Pressure Findings: Elevated blood pressure Blood Pressure Disposition: further management by hospitalist VEENA Narrative 1550: Past medical records reviewed. The patient was evaluated in room A10. A complete history and physical exam was performed. 1715: Labs show a magnesium of 0.7. Otherwise within normal limits. Patient's imaging shows diverticulitis. Given the patient's low magnesium, 2 g of magnesium IV piggyback ordered for the patient. CT showed diverticulitis given the patient's allergy to Augmentin, Rocephin and Flagyl started. [facility] [place]. 1730: I went to repeat assessed the patient. The patient was acutely hypoxic. Magnesium was being infused at this time.. The patient was alert and oriented x3. His reflexes were within normal limits, there were no decrease in relex time. It is highly unlikely that the patient's hypoxia is due to decreased ventilation due to the magnesium infusion given the normal mental status, normal blood pressure, and normal reflexes. However, given the hypoxia, the patient's magnesium rate infusion was decreased. Patient was put on supplemental oxygen which improved his oxygen saturation. On repeat lung exam, the patient is having wheezing with minimal rales at the bases. It is highly unlikely that the patient went to pulmonary edema due to the IV fluids have ordered as the patient only received 500 cc of fluid over 60 minutes. Chest x-ray was conducted which showed some mild cardiomegaly with some mild cephalization. Given the patient history of atrial flutter and not being on any anticoagulation, there was high suspicion for PE. I did order CTA of the chest. proBNP, flu and troponin were also sent. 1829: Vital signs stable on the nasal cannula. Patient continues have mild wheezes, however the improved after DuoNeb treatment. 1944: Vital signs stable on nasal cannula. Troponin and proBNP are within normal limits. Influenza positive. Given the patient's influenza positive, it is thought that the patient's hypoxia could be more due to influenza. It is again not thought that the patient's hypoxia is due to decreased respirations from magnesium infusion as patient is from maintain normal reflexes, normal mental status, and normal blood pressure. Tamiflu was ordered for the patient. The patient's magnesium rate was increased back to normal. Patient will be [facility] the [facility]. Louis[facility]. He will evaluate the patient for further management. Impression & Plan Hypoxia, Hypomagnesemia, Diverticulitis, Influenza Discharge Plan Visit Data Chief Complaint: Vomiting Stated Complaint: VOMITING FOR PAST 2 DAYS ED Provider: Jett Espinal Discharge Problem: Hypoxia, Hypomagnesemia, Diverticulitis, Influenza Patient Disposition: Being Evaluated by Hospitalist Forms Stand Alone Forms: My [facility] Prescriptions Prescriptions: No Action amlodipine 2.5 mg Tablet 2 tabs PO DAILY RF: 0 lisinopril 30 mg Tablet 30 mg PO DAILY RF: 0 potassium chloride 10 mEq Tablet Extended Release 2 tabs PO DAILY RF: 0 valacyclovir 500 mg Tablet 500 mg PO BID PRN (Reason: Cold Sores) RF: 0 aspirin 81 mg Tablet,Delayed Release (Dr/Ec) 81 mg PO DAILY RF: 0 tramadol 50 mg Tablet 2 tabs PO Q8 PRN (Reason: Pain) RF: 0 omeprazole 20 mg Capsule,Delayed Release(Dr/Ec) 20 mg PO DAILY RF: 0 albuterol sulfate [Ventolin HFA] 90 mcg/actuation Hfa Aerosol Inhaler 2 puff INHALATION Q4H PRN (Reason: Shortness Of Breath Or Wheezing) RF: 0 atorvastatin 10 mg tablet 10 mg PO DAILY RF: 0 clobetasol [Temovate] 0.05 % cream 1 applic TOPICAL BID PRN (Reason: PSORIASIS FLARE UP) RF: 0 triamcinolone acetonide 0.1 % Cream 1 applic TOPICAL BID PRN (Reason: ITCHING FLARE UP) RF: 0 propranolol 80 mg capsule,extended release 24 hr 80 mg PO DAILY RF: 0 Referrals Referrals: Marcial Franks, [Primary Care Provider] - The scribe's documentation has been prepared under my direction and personally reviewed by me in its entirety. I confirm that the note above accurately reflects all work, treatment, procedures, and medical decision making performed by me.
[2019-11-07] MEDS ORDERED: POTASSIUM CHLORIDE / WTR 10 MEQ/100 ML PLCT IV ONE (22:33)
[2019-11-07] MEDS ORDERED: MAGNESIUM SULFATE / D5W 1 GM/100 ML BAG IV ONE (22:33)
[2019-11-07] MEDS ORDERED: ONDANSETRON INJ 2 MG/ML 2 ML VIAL IV PRN (22:33)
[2019-11-07] MEDS ORDERED: ALBUT/IPRATROP 3MG/0.5MG NEB 3 ML VIAL NEB PRN (22:37)
[2019-11-07] MEDS ORDERED: CLOBETASOL PROPIONATE 0.05% OINT 15 GM TUBE EXT PRN (23:01)
[2019-11-07] MEDS: SODIUM CHLORIDE 0.9% 1000ML 1,000 ML IV SCH (23:45)
[2019-11-08] MEDS: metroNIDAZOLE 500 MG/100 ML BAG IV SCH ×3 (02:53→18:43)
[2019-11-08] MEDS: HEPARIN SOD 5,000 UNIT/0.5 ML VIAL SQ SCH ×3 (06:05→21:29)
[2019-11-08 06:37] LABS: Hematocrit (blood only) 38.5 % (42-52); Hemoglobin 12.7 g/dL (14.0-18.0); Mean Platelet Volume 10.9 fL (7.4-10.4); Platelet Count 244 K/uL (130-400); Red Blood Count 4.23 M/uL (4.7-6.1)
[2019-11-08 07:16] LABS: Creatinine Clr Calc Pharmacy 71.8 ml/min; Est GFR (African American) 104.3; Magnesium 1.9 mg/dl (1.8-2.4); Potassium 3.6 mmol/L (3.5-5.1)
[2019-11-08] MEDS ORDERED: OSELTAMIVIR PHOSPHATE SUSP 30 MG/5 ML UDP PO SCH (09:00)
[2019-11-08] MEDS: POTASSIUM CHLORIDE 20 MEQ TABCR PO SCH (09:24)
[2019-11-08] MEDS: ASPIRIN 81 MG ECTAB PO SCH (09:24)
[2019-11-08] MEDS: PANTOprazole 40 MG TAB PO SCH (09:24)
[2019-11-08] MEDS: ATORVASTATIN 10 MG TAB PO SCH (09:24)
[2019-11-08] MEDS: PROPRANOLOL HCL LA 80 MG CAPCR PO SCH (09:24)
[2019-11-08] MEDS: lisinopriL 10 MG TAB PO SCH (09:25)
--- NOTE | 2019-11-08 12:35 | Gastrointestinal Consultation ---
Date of Consultation November 08, 2019 Assessment & Plan (1) Influenza: (2) Diverticulitis: Pt is a 79 y/o male currently admitted for Influenza A and sigmoid diverticulitis w/o abscess or perforation/obstruction. He is symptomatically feeling better. - Continue IV antibx. Upon DC may convert IV antibx to Bactrim DS 1 tab q 12hrs + Flagyl 500mg q8hrs to completed total of 10 days (was previously treated w Cipro/Flagyl 1 month ago) - Advance diet as tolerated - Influenza management per primary team, currently on Tamiflu - Previously scheduled for EGD/Colonscopy (hx of Martin's esophagus, n/v, weight loss, diverticulitis) on 11/16/2019. Will postpone this to 6 weeks later. Attg add: I reviewed chart and labs. Pt with diverticulitis with n/v, nasal swab positive for influenza. CT imaging shows large fixed hiatal hernia; CT shows left sided colitis - ischemic vs diverticulitis. Cont abx, diet as regan. Outpt scopes as above. Will sign off, please reconsult if needed. History of Present Illness Reason for Consultation: Diverticulitis Requesting Physician: Dr. Manpreet Valverde Attending Physician: Dr. Irineo Smith History of Present Illness Pt is a 79 y/o male who presented yesterday w c/o abd pain associated with nausea and vomiting. He had hx of sigmoid diverticulitis noted on CT scan about 1 month ago, treated with Cipro/Flagyl. He noted abd pain had started to improve while on these meds but then started again. He also noted that about 3 days ago he started to have flu like symptoms such as weakness, chills and productive cough. He in fact tested positive for Influenza A, currently on Tamiflu. CT abd/pelvis w contrast showed chronic descending as well as sigmoid diverticulosis with mild acute diverticulitis of the mid sigmoid w/o evidence of abscess collection or obstruction. + small periumbilical hernia containing short segment of small bowel but non obstructive. He is currently on Ceftriaxone and Flagyl IV. Denies any more fever, chills, feeling a bit better though still coughing. He denies any more abd pain. Hasn't attempted a diet yet. Last BM this morning w/o rectal bleeding per his report. Allergies Allergy/AdvReac Type Severity Reaction Status Date / Time oxycodone AdvReac Mild HALLUCINATI Verified 11/07/19 16:43 ONS amoxicillin AdvReac Unknown increased Verified 11/07/19 16:43 lft's clavulanic acid AdvReac Unknown increased Verified 11/07/19 16:43 lft's Home Medications Home Medications Medication Instructions Recorded Confirmed Type albuterol sulfate [Ventolin HFA] 2 puff INHALATION Q4H PRN 07/31/18 11/07/19 History amlodipine 2 tabs PO DAILY 07/31/18 11/07/19 History aspirin 81 mg PO DAILY 07/31/18 11/07/19 History lisinopril 30 mg PO DAILY 07/31/18 11/07/19 History omeprazole 20 mg PO DAILY 07/31/18 11/07/19 History potassium chloride 2 tabs PO DAILY 07/31/18 11/07/19 History tramadol 2 tabs PO Q8 PRN 07/31/18 11/07/19 History valacyclovir 500 mg PO BID PRN 07/31/18 11/07/19 History atorvastatin 10 mg PO DAILY 11/07/19 11/07/19 History clobetasol [Temovate] 1 applic TOPICAL BID PRN 11/07/19 11/07/19 History propranolol 80 mg PO DAILY 11/07/19 11/07/19 History triamcinolone acetonide 1 applic TOPICAL BID PRN 11/07/19 11/07/19 History Patient History Medical History Acid reflux (Chronic) Atrial flutter with rapid ventricular response (Acute) Cervical disc displacement (Chronic) COPD (chronic obstructive pulmonary disease) (Chronic) History of paroxysmal supraventricular tachycardia (Chronic) HLD (hyperlipidemia) (Chronic) HTN (hypertension) (Chronic) Hyperlipidemia Hypokalemia (Acute) Hypomagnesemia (Acute) Prostate cancer (Resolved 10/13/03) "Rising PSA Status post biopsy 10/13/2003 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 Lupron 22.5 mg IM 08/22/2017 Lupron 22.5 mg IM 11/18/2017 Status post completion of salvage radiation therapy 11/18/2017. 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 Rising PSA post prostatectomy PSA 07/08/2017 at 1.290" Psoriasis (Chronic) Surgical History H/O hand surgery H/O radical prostatectomy H/O umbilical hernia repair History of tonsillectomy and adenoidectomy Hx of appendectomy Social History Preferred Language: Kinyarwanda Communication Ability: Effective Boilers Inspector Required: No Beliefs That Will Affect Care: None Current Living Situation: Alone Other Information That Helps Us Care for You: No Feels Safe at Home: Yes Safety Concerns: Feels Safe At This Time Smoking Status: Former smoker Tobacco Type: cigarettes ; Do You Dip or Chew Tobacco: No ; Second Hand Exposure: No ; Tobacco Cessation Education Requested by Patient: No Hx Alcohol Use: No Hx Substance Use: No Review of Systems Review of Systems: All systems reviewed & are unremarkable except as noted in HPI & below Physical Exam Constitutional: WD/WN, vitals as above well groomed, cooperative and comfortable Eyes: PERRL, conjunctivae normal, anicteric sclerae ENMT: external ear and nose normal, oropharynx normal Respiratory: normal respiratory effort, lungs clear to auscultation Cardiovascular: RRR, no murmur, no edema Gastrointestinal (Abdomen): normal bowel sounds, soft, nontender, no hepatosplenomegaly Skin: no rashes, warm and dry no jaundice Psychiatric: A+Ox3, euthymic affect Lymphatic: no lymphedema Results & Data Vital Signs (Past 12 Hours) Vital Signs Temp Pulse Pulse Resp BP Pulse Ox 11/08/19 11:34 37.9 C H 81 18 131/80 95 11/08/19 09:11 86 11/08/19 07:43 37.0 C 80 18 114/69 93 11/08/19 04:07 37.8 C H 85 20 143/80 H 95 11/08/19 01:12 88
[2019-11-08] MEDS: SODIUM CHLORIDE 0.9% 1000ML 1,000 ML IV SCH (13:48)
[2019-11-08] MEDS ORDERED: ACETAMINOPHEN 325 MG TAB PO PRN (13:53)
--- NOTE | 2019-11-08 14:48 | Electrocardiogram Report ---
Test Reason : Blood Pressure : / mmHG Vent. Rate : 092 BPM Atrial Rate : 092 BPM P-R Int : 148 ms QRS Dur : 090 ms QT Int : 362 ms P-R-T Axes : 082 045 037 degrees QTc Int : 447 ms Normal sinus rhythm Normal ECG When compared with ECG of 01-AUG-2018 06:47, Sinus rhythm has replaced Ectopic atrial rhythm Confirmed by Hong Ruvalcaba ([id number]) on 11/08/2019 2:48:23 PM Referred By: REFERRED SELF Confirmed By:Hong Ruvalcaba
--- NOTE | 2019-11-08 17:01 | Hospitalist Progress Note ---
Date of Service November 08, 2019 Assessment & Plan (1) Flu-like symptoms: (2) Influenza: Patient is a 79 yr male who presents with flu like symptoms Influenza A CTA:Negative thoracic aorta. No evidence for pulmonary embolus. Influenza virus PCR type A positive Continue Oseltamivir Day 2/5 Gentle IV fluids (3) Diverticulitis: Left-sided colitis Acute Diverticulitis Vs ischemic Recently completed a course of Cipro and Flagyl 1 week ago for acute diverticulitis --CT ABD:Chronic descending as well as sigmoid diverticulosis with mild acute diverticulitis of the mid sigmoid. No evidence for abscess collection or obstruction. Small periumbilical hernia containing a short segment of small bowel. This appears to be nonobstructive finding. --Continue IV Rocephin and Flagyl while hospitalized --Plan to discharge on Bactrim and Flagyl to complete 10-day course --Full liquid diet for now --Advance diet as tolerated --Appreciate GI input --Plan for EGD/Colonoscopy as outpatient (4) Hypomagnesemia: Hypomagnesemia Hypokalemia Secondary to GI losses Replete electrolytes as needed Monitor HTN BP stable Continue lisinopril Hold amlodipine for now H/O SVT Continue propranolol Hyperlipidemia Continue statin H/O COPD Nebs PRN DVT Px: Heparin SQ Code status FULL CODE Disposition PT OT prior to discharge Subjective Patient is seen and examined at bedside Complains of significant cough Reports abdominal soreness associated with cough Denies any chest pain, shortness of breath, dizziness, nausea Offers no other complaints Review of Systems Review of Systems: All systems reviewed & are unremarkable except as noted in HPI & below Physical Exam Physical Exam: Physical Exam: Vitals signs as noted above General Appearance:Moderately built and nourished, no apparent distress Head: normocephalic, Atraumatic Eyes: normal inspection, EOMI Neck: supple, Trachea midline Respiratory/Chest: Normal breath sounds, B/L scattered wheezes Cardiovascular: S1, S2, No murmur Abdomen/GI:Soft, Non tender, Bowel sounds present Extremities/Musculoskelatal:normal inspection, no edema Neurologic/Psych:AAOX3, grossly no focal neurological deficits Skin: normal color, warm+ Psoriasis Results & Data Vital Signs (Past 12 Hours) Vital Signs Temp Pulse Pulse Resp BP Pulse Ox 11/08/19 15:55 37.3 C 72 18 128/75 96 11/08/19 15:50 83 11/08/19 13:49 37.5 C 11/08/19 11:34 37.9 C H 81 18 131/80 95 11/08/19 09:11 86 11/08/19 07:43 37.0 C 80 18 114/69 93 Laboratory Results Short CBC 11/08/19 Range/Units 06:17 WBC 7.20 (4.8-10.8) K/uL Hgb 12.7 L (14.0-18.0) g/dL Hct 38.5 L (42-52) % Plt Count 244 (130-400) K/uL BMP 11/07/19 11/08/19 16:14 06:17 Sodium 136 136 Potassium 3.4 L 3.6 Chloride 99 105 Carbon Dioxide 29 25 BUN 10 9 Creatinine 0.91 0.72 Glucose 117 H 93 Calcium 8.6 8.0 L Cardiac Enzymes 11/07/19 Range/Units 18:09 Troponin I < 0.015 (0-0.045) ng/ml Liver Function 11/07/19 Range/Units 16:14 Total Bilirubin 0.7 (0.2-1) mg/dl Direct Bilirubin 0.1 (0-0.2) mg/dl AST 25 (15-37) U/L ALT 23 (12-78) U/L Alkaline Phosphatase 51 (45-117) U/L Albumin 3.6 (3.4-5.0) gm/dl Urine 11/07/19 Range/Units 18:40 Urine Color Yellow Urine Appearance Clear (Clear) Urine pH 6.5 (4.5-7.5) Ur Specific [place] > 1.045 H (1.000-1.030) Urine Protein 2+ H (Negative) Urine Glucose (UA) Negative (Negative)
[2019-11-08] MEDS: cefTRIAXone SODIUM 1,000 MG/50 ML BAG IV SCH (18:42)
[2019-11-08] MEDS: LACTOBACILLUS ACIDOPHILUS (FLORANEX) TAB PO SCH (20:07)
[2019-11-08] MEDS: OSELTAMIVIR PHOSPHATE 75 MG CAP PO SCH (20:07)
[2019-11-09] MEDS: metroNIDAZOLE 500 MG/100 ML BAG IV SCH ×3 (03:21→19:05)
[2019-11-09] MEDS: HEPARIN SOD 5,000 UNIT/0.5 ML VIAL SQ SCH ×3 (05:40→20:50)
[2019-11-09] MEDS: LACTOBACILLUS ACIDOPHILUS (FLORANEX) TAB PO SCH ×4 (07:58→20:50)
[2019-11-09] MEDS: lisinopriL 10 MG TAB PO SCH (07:59)
[2019-11-09] MEDS: ATORVASTATIN 10 MG TAB PO SCH (07:59)
[2019-11-09] MEDS: PROPRANOLOL HCL LA 80 MG CAPCR PO SCH (07:59)
[2019-11-09] MEDS: ASPIRIN 81 MG ECTAB PO SCH (07:59)
[2019-11-09] MEDS: POTASSIUM CHLORIDE 20 MEQ TABCR PO SCH (07:59)
[2019-11-09] MEDS: OSELTAMIVIR PHOSPHATE 75 MG CAP PO SCH ×2 (07:59→20:51)
[2019-11-09] MEDS: PANTOprazole 40 MG TAB PO SCH (07:59)
[2019-11-09 08:36] LABS: Hematocrit (blood only) 41.7 % (42-52); Hemoglobin 13.9 g/dL (14.0-18.0); Mean Corpuscular Hemoglobin 30.5 pg (25-34); Mean Corpuscular Hgb Conc 33.3 g/dL (32-36); Mean Corpuscular Volume 91.4 fL (80-100); Mean Platelet Volume 10.9 fL (7.4-10.4); Platelet Count 209 K/uL (130-400); RDW Coefficient of Variation 14.6 % (11.5-14.5); RDW Standard Deviation 49.1 fL (36.4-46.3); Red Blood Count 4.56 M/uL (4.7-6.1)
[2019-11-09 09:08] LABS: BUN Creatinine Ratio 13.1 (10-20); Calcium 9.1 mg/dl (8.5-10.1); Creatinine Clr Calc Pharmacy 59.7 ml/min; Est GFR (African American) 99.9; Est GFR (Non-African American) 86.2; Magnesium 1.8 mg/dl (1.8-2.4); Potassium 3.7 mmol/L (3.5-5.1)
[2019-11-09] MEDS: LOPERAMIDE HCL 2 MG CAP PO PRN (13:03)
[2019-11-09] MEDS: cefTRIAXone SODIUM 1,000 MG/50 ML BAG IV SCH (18:22)
--- NOTE | 2019-11-09 21:23 | Hospitalist Progress Note ---
Date of Service November 09, 2019 Assessment & Plan (1) Flu-like symptoms: (2) Influenza: Patient is a 79 yr male who presents with flu like symptoms Influenza A CTA:Negative thoracic aorta. No evidence for pulmonary embolus. Influenza virus PCR type A positive Continue Oseltamivir Day 3/5 Received gentle IV fluids Febrile today Blood Cultures: No growth to date Saturating low 90s on room air (3) Diverticulitis: Left-sided colitis Acute Diverticulitis Vs ischemic Recently completed a course of Cipro and Flagyl 1 week ago for acute diverticulitis --CT ABD:Chronic descending as well as sigmoid diverticulosis with mild acute diverticulitis of the mid sigmoid. No evidence for abscess collection or obstruction. Small periumbilical hernia containing a short segment of small bowel. This appears to be nonobstructive finding. --Stool for C. difficile negative -Continue IV Rocephin and Flagyl while hospitalized --Plan to discharge on Bactrim and Flagyl to complete 10-day course --Tolerating diet --Appreciate GI input --Plan for EGD/Colonoscopy as outpatient --Imodium as needed for diarrhea (4) Hypomagnesemia: Hypomagnesemia Hypokalemia Secondary to GI losses Replete electrolytes as needed Monitor HTN Continue lisinopril Hold amlodipine for now H/O SVT Continue propranolol Hyperlipidemia Continue statin H/O COPD Nebs PRN DVT Px: Heparin SQ Code status FULL CODE Disposition PT OT prior to discharge Subjective Patient is seen and examined at bedside Febrile today Reports having diarrhea and feels tired Cough slowly improving Denies any chest pain, shortness of breath, dizziness, nausea Review of Systems Review of Systems: All systems reviewed & are unremarkable except as noted in HPI & below Physical Exam Physical Exam: Physical Exam: Vitals signs as noted above General Appearance:Moderately built and nourished, no apparent distress Head: normocephalic, Atraumatic Eyes: normal inspection, EOMI Neck: supple, Trachea midline Respiratory/Chest: Normal breath sounds, B/L Rhonchi Cardiovascular: S1, S2, No murmur Abdomen/GI:Soft, Non tender, Bowel sounds present Extremities/Musculoskelatal:normal inspection, no edema Neurologic/Psych:AAOX3, grossly no focal neurological deficits Skin: normal color, warm+ Psoriasis Results & Data Vital Signs (Past 12 Hours) Vital Signs Temp Pulse Pulse Pulse Resp BP Pulse Ox 11/09/19 20:17 37.8 C H 71 20 114/73 92 11/09/19 19:56 63 11/09/19 15:06 37.6 C H 63 20 111/61 90 11/09/19 11:47 36.9 C 66 18 137/82 90 Laboratory Results Short CBC 11/09/19 Range/Units 08:22 WBC 6.20 (4.8-10.8) K/uL Hgb 13.9 L (14.0-18.0) g/dL Hct 41.7 L (42-52) % Plt Count 209 (130-400) K/uL BMP 11/09/19 08:22 Sodium 135 L Potassium 3.7 Chloride 103 Carbon Dioxide 25 BUN 10 Creatinine 0.80 Glucose 153 H Calcium 9.1
[2019-11-10] MEDS: metroNIDAZOLE 500 MG/100 ML BAG IV SCH ×3 (02:55→18:47)
[2019-11-10] MEDS: HEPARIN SOD 5,000 UNIT/0.5 ML VIAL SQ SCH ×3 (05:53→21:45)
[2019-11-10 07:58] LABS: Hematocrit (blood only) 41.7 % (42-52); Hemoglobin 14.2 g/dL (14.0-18.0)
[2019-11-10 08:25] LABS: BUN Creatinine Ratio 12.6 (10-20); Calcium 9.5 mg/dl (8.5-10.1); Creatinine Clr Calc Pharmacy 55.6 ml/min; Est GFR (African American) 96.9; Est GFR (Non-African American) 83.6; Potassium 3.9 mmol/L (3.5-5.1)
[2019-11-10] MEDS: ATORVASTATIN 10 MG TAB PO SCH (09:06)
[2019-11-10] MEDS: POTASSIUM CHLORIDE 20 MEQ TABCR PO SCH (09:06)
[2019-11-10] MEDS: PROPRANOLOL HCL LA 80 MG CAPCR PO SCH (09:06)
[2019-11-10] MEDS: ASPIRIN 81 MG ECTAB PO SCH (09:06)
[2019-11-10] MEDS: LOPERAMIDE HCL 2 MG CAP PO PRN (09:06)
[2019-11-10] MEDS: LACTOBACILLUS ACIDOPHILUS (FLORANEX) TAB PO SCH ×4 (09:06→19:56)
[2019-11-10] MEDS: lisinopriL 10 MG TAB PO SCH (09:07)
[2019-11-10] MEDS: PANTOprazole 40 MG TAB PO SCH (09:07)
[2019-11-10] MEDS: OSELTAMIVIR PHOSPHATE 75 MG CAP PO SCH ×2 (09:07→19:57)
--- NOTE | 2019-11-10 15:51 | Hospitalist Progress Note ---
Date of Service November 10, 2019 Assessment & Plan (1) Flu-like symptoms: (2) Influenza: Patient is a 79 yr male who presents with flu like symptoms Influenza A CTA:Negative thoracic aorta. No evidence for pulmonary embolus. Influenza virus PCR type A positive Continue Oseltamivir Day 4/5 Received gentle IV fluids Blood Cultures: No growth to date Clinically better Advised to use spirometer and increase ambulation (3) Diverticulitis: Left-sided colitis Acute Diverticulitis Vs ischemic Recently completed a course of Cipro and Flagyl 1 week ago for acute diverticulitis --CT ABD:Chronic descending as well as sigmoid diverticulosis with mild acute diverticulitis of the mid sigmoid. No evidence for abscess collection or obstruction. Small periumbilical hernia containing a short segment of small bowel. This appears to be nonobstructive finding. --Stool for C. difficile negative -Continue IV Rocephin and Flagyl while hospitalized --Plan to discharge on Bactrim and Flagyl to complete 10-day course --Tolerating diet --Appreciate GI input and recommendation --Plan for EGD/Colonoscopy as outpatient --Imodium as needed for diarrhea -Diarrhea is controlled and no abdominal pain --Clinically a lot better (4) Hypomagnesemia: Hypomagnesemia Hypokalemia Secondary to GI losses Replete electrolytes as needed Electrolytes corrected HTN Continue lisinopril Hold amlodipine for now H/O SVT Continue propranolol Hyperlipidemia Continue statin H/O COPD Nebs PRN DVT Px: Heparin SQ Code status FULL CODE Disposition PT OT prior to discharge Subjective On Patient was seen and examined in medical floor He complains to have cough with minimal phlegm Shortness of breath on exertion with wheezing Denies any abdominal pain, nausea and/or vomiting Review of Systems Review of Systems: All systems reviewed and are unremarkable except as noted below Respiratory: + cough, + chest congestion, + dyspnea on exertion and + wheezing Gastrointestinal: no abdominal pain, no bloating, no nausea and no vomiting Physical Exam Physical Exam: Lying in bed with minimal distress due to cough Constitutional: WD/WN, vitals as above cooperative and comfortable Eyes: PERRL, conjunctivae normal, anicteric sclerae ENMT: external ear and nose normal, oropharynx normal Respiratory: + cough and + audible wheezes Auscultation: + diminished lung sounds and + wheezes Cardiovascular: RRR, no murmur, no edema Gastrointestinal (Abdomen): normal bowel sounds, soft, nontender, no hepatosplenomegaly Musculoskeletal: No acute arthritis in any joints Skin: no rashes, warm and dry no jaundice Psychiatric: A+Ox3, euthymic affect Lymphatic: no lymphedema Results & Data Vital Signs (Past 12 Hours) Vital Signs Temp Pulse Pulse Resp BP Pulse Ox 11/10/19 15:28 37.3 C 73 18 128/74 97 11/10/19 11:58 37.2 C 75 20 105/66 91 11/10/19 07:58 36.7 C 75 20 134/74 97 11/10/19 07:43 73 11/10/19 04:07 37.5 C 72 22 114/55 L 96 Laboratory Results Short CBC 11/10/19 Range/Units 07:27 Hgb 14.2 (14.0-18.0) g/dL Hct 41.7 L (42-52) % BMP 11/10/19 07:26 Sodium 136 Potassium 3.9 Chloride 104 Carbon Dioxide 27 BUN 11 Creatinine 0.86 Glucose 91 Calcium 9.5 Medications Administered Current Inpatient Medications Acetaminophen (Tylenol) 650 mg PO Q4H PRN PRN Reason: Fever or headache Stop: 12/08/19 13:52 Albuterol (Duoneb) 3 ml NEB Q4R PRN PRN Reason: SOB/wheezing Stop: 12/07/19 22:59 Aspirin (Ecotrin Ectab) 81 mg PO DAILY JOY Stop: 12/08/19 08:59 Last Admin: 11/10/19 09:06 Dose: 81 mg Documented by: Atorvastatin Calcium (Lipitor) 10 mg PO DAILY JOY Stop: 12/08/19 08:59 Last Admin: 11/10/19 09:06 Dose: 10 mg Documented by: Clobetasol Propionate (Clobetasol Propionate Oint) 1 appln EXT BID PRN PRN Reason: PSORIASIS FLARE UP Heparin Sodium (Porcine) (Heparin Sodium (Porcine)) 5,000 units SQ Q8 JOY Stop: 12/08/19 05:59 Last Admin: 11/10/19 13:45 Dose: Not Given Documented by: Ceftriaxone Sodium (Rocephin) 1,000 mg in 50 mls @ 100 mls/hr IV Q24H [facility] Stop: 11/17/19 17:59 Last Infusion: 11/09/19 19:08 Dose: Infused Documented by: Metronidazole (Flagyl) 500 mg in 100 mls @ 100 mls/hr IV Q8H JOY Stop: 11/18/19 02:59 Last Infusion: 11/10/19 11:40 Dose: Infused Documented by: Lactobacillus Acidophilus (Floranex) 4 tab PO QIDM JOY Stop: 12/08/19 20:59 Last Admin: 11/10/19 11:37 Dose: 4 tab Documented by: Lisinopril (Zestril) 30 mg PO DAILY JOY Stop: 12/08/19 08:59 Last Admin: 11/10/19 09:07 Dose: 30 mg Documented by: Loperamide HCl (Imodium) 2 mg PO PRN PRN PRN Reason: Diarrhea Stop: 12/09/19 12:12 Last Admin: 11/10/19 09:06 Dose: 2 mg Documented by: Ondansetron HCl (Zofran) 4 mg IV Q6H PRN PRN Reason: Nausea Stop: 12/07/19 22:32 Oseltamivir Phosphate (Tamiflu) 75 mg PO BID [facility] Stop: 11/12/19 21:01 Last Admin: 11/10/19 09:07 Dose: 75 mg Documented by: Pantoprazole Sodium (Protonix) 40 mg PO DAILY JOY Stop: 12/08/19 08:59 Last Admin: 11/10/19 09:07 Dose: 40 mg Documented by: Potassium Chloride (Klor-Con M20) 20 meq PO DAILY JOY Stop: 12/08/19 08:59 Last Admin: 11/10/19 09:06 Dose: 20 meq Documented by: Propranolol HCl (Inderal La) 80 mg PO DAILY [facility] Stop: 12/08/19 08:59 Last Admin: 11/10/19 09:06 Dose: 80 mg Documented by:
[2019-11-10] MEDS: cefTRIAXone SODIUM 1,000 MG/50 ML BAG IV SCH (17:38)
[2019-11-11] MEDS: metroNIDAZOLE 500 MG/100 ML BAG IV SCH ×2 (03:31→10:37)
[2019-11-11] MEDS: HEPARIN SOD 5,000 UNIT/0.5 ML VIAL SQ SCH ×2 (05:54→14:01)
[2019-11-11 06:18] LABS: Hematocrit (blood only) 41.3 % (42-52); Hemoglobin 14.1 g/dL (14.0-18.0); Mean Corpuscular Hemoglobin 30.2 pg (25-34); Mean Corpuscular Hgb Conc 34.1 g/dL (32-36); Mean Corpuscular Volume 88.4 fL (80-100); Mean Platelet Volume 10.8 fL (7.4-10.4); Platelet Count 216 K/uL (130-400); RDW Coefficient of Variation 14.4 % (11.5-14.5); RDW Standard Deviation 46.5 fL (36.4-46.3); Red Blood Count 4.67 M/uL (4.7-6.1); White Blood Count 6.91 K/uL (4.8-10.8)
[2019-11-11] MEDS: PROPRANOLOL HCL LA 80 MG CAPCR PO SCH (07:57)
[2019-11-11] MEDS: ASPIRIN 81 MG ECTAB PO SCH (07:57)
[2019-11-11] MEDS: LACTOBACILLUS ACIDOPHILUS (FLORANEX) TAB PO SCH ×2 (07:57→11:48)
[2019-11-11] MEDS: PANTOprazole 40 MG TAB PO SCH (07:58)
[2019-11-11] MEDS: POTASSIUM CHLORIDE 20 MEQ TABCR PO SCH (07:58)
[2019-11-11] MEDS: OSELTAMIVIR PHOSPHATE 75 MG CAP PO SCH (07:58)
[2019-11-11] MEDS: ATORVASTATIN 10 MG TAB PO SCH (07:58)
[2019-11-11] MEDS: lisinopriL 10 MG TAB PO SCH (07:58)
--- NOTE | 2019-11-11 12:09 | Hospitalist Progress Note ---
Date of Service November 11, 2019 Assessment & Plan (1) Flu-like symptoms: (2) Influenza: Patient is a 79 yr male who presents with flu like symptoms Influenza A CTA:Negative thoracic aorta. No evidence for pulmonary embolus. Influenza virus PCR type A positive Continue Oseltamivir Day 4/5 Received gentle IV fluids Blood Cultures: No growth to date Clinically better Advised to use spirometer and increase ambulation Clinically even better today We will get 2 steps O2 saturation before discharge this afternoon (3) Diverticulitis: Left-sided colitis Acute Diverticulitis Vs ischemic Recently completed a course of Cipro and Flagyl 1 week ago for acute diverticulitis --CT ABD:Chronic descending as well as sigmoid diverticulosis with mild acute diverticulitis of the mid sigmoid. No evidence for abscess collection or obstruction. Small periumbilical hernia containing a short segment of small bowel. This appears to be nonobstructive finding. --Stool for C. difficile negative -Continue IV Rocephin and Flagyl while hospitalized --Plan to discharge on Bactrim and Flagyl to complete 10-day course --Tolerating diet --Appreciate GI input and recommendation --Plan for EGD/Colonoscopy as outpatient --Imodium as needed for diarrhea -Diarrhea is controlled and no abdominal pain -Clinically a lot better and will continue the antibiotic to finish his course (4) Hypomagnesemia: Hypomagnesemia Hypokalemia Secondary to GI losses Replete electrolytes as needed Electrolytes corrected HTN Continue lisinopril Hold amlodipine for now H/O SVT Continue propranolol Hyperlipidemia Continue statin H/O COPD Nebs PRN DVT Px: Heparin SQ Code status FULL CODE Disposition PT OT prior to discharge Discharge home this afternoon Subjective 11/10/19 Patient was seen and examined in medical floor He complains to have cough with minimal phlegm Shortness of breath on exertion with wheezing Denies any abdominal pain, nausea and/or vomiting 11/11/2019 Patient was seen and examined in medical floor He has been feeling a lot better today Still has occasional cough with occasional wheezing Has been ambulating well Will get to do steps O2 saturation before sending him home this afternoon Review of Systems Review of Systems: All systems reviewed and are unremarkable except as noted below Respiratory: + cough, + chest congestion, + dyspnea on exertion and + wheezing Physical Exam Physical Exam: No apparent distress at rest Constitutional: WD/WN, vitals as above cooperative and comfortable Eyes: PERRL, conjunctivae normal, anicteric sclerae ENMT: external ear and nose normal, oropharynx normal Respiratory: + cough and + audible wheezes Auscultation: + diminished lung sounds and + wheezes (Occasional wheezing mostly on the right side) Cardiovascular: RRR, no murmur, no edema Gastrointestinal (Abdomen): normal bowel sounds, soft, nontender, no hepatosplenomegaly Skin: no rashes, warm and dry no jaundice Psychiatric: A+Ox3, euthymic affect Lymphatic: no cervical or axillary lymphadenopathy no lymphedema Results & Data Vital Signs (Past 12 Hours) Vital Signs Temp Pulse Resp BP Pulse Ox 11/11/19 11:18 36.7 C 80 20 113/74 93 11/11/19 07:29 36.7 C 76 20 112/64 93 11/11/19 03:40 36.8 C 65 18 152/72 H 92 Laboratory Results Short CBC 11/11/19 Range/Units 05:45 WBC 6.91 (4.8-10.8) K/uL Hgb 14.1 (14.0-18.0) g/dL Hct 41.3 L (42-52) % Plt Count 216 (130-400) K/uL Medications Administered Current Inpatient Medications Acetaminophen (Tylenol) 650 mg PO Q4H PRN PRN Reason: Fever or headache Stop: 12/08/19 13:52 Albuterol (Duoneb) 3 ml NEB Q4R PRN PRN Reason: SOB/wheezing Stop: 12/07/19 22:59 Aspirin (Ecotrin Ectab) 81 mg PO DAILY [facility] Stop: 12/08/19 08:59 Last Admin: 11/11/19 07:57 Dose: 81 mg Documented by: Atorvastatin Calcium (Lipitor) 10 mg PO DAILY [facility] Stop: 12/08/19 08:59 Last Admin: 11/11/19 07:58 Dose: 10 mg Documented by: Clobetasol Propionate (Clobetasol Propionate Oint) 1 appln EXT BID PRN PRN Reason: PSORIASIS FLARE UP Heparin Sodium (Porcine) (Heparin Sodium (Porcine)) 5,000 units SQ Q8 JOY Stop: 12/08/19 05:59 Last Admin: 11/11/19 05:54 Dose: Not Given Documented by: Ceftriaxone Sodium (Rocephin) 1,000 mg in 50 mls @ 100 mls/hr IV Q24H JOY Stop: 11/17/19 17:59 Last Infusion: 11/10/19 18:50 Dose: Infused Documented by: Metronidazole (Flagyl) 500 mg in 100 mls @ 100 mls/hr IV Q8H JOY Stop: 11/18/19 02:59 Last Infusion: 11/11/19 11:52 Dose: Infused Documented by: Lactobacillus Acidophilus (Floranex) 4 tab PO QIDM JOY Stop: 12/08/19 20:59 Last Admin: 11/11/19 11:48 Dose: 4 tab Documented by: Lisinopril (Zestril) 30 mg PO DAILY [facility] Stop: 12/08/19 08:59 Last Admin: 11/11/19 07:58 Dose: 30 mg Documented by: Loperamide HCl (Imodium) 2 mg PO PRN PRN PRN Reason: Diarrhea Stop: 12/09/19 12:12 Last Admin: 11/10/19 09:06 Dose: 2 mg Documented by: Ondansetron HCl (Zofran) 4 mg IV Q6H PRN PRN Reason: Nausea Stop: 12/07/19 22:32 Oseltamivir Phosphate (Tamiflu) 75 mg PO BID [facility] Stop: 11/12/19 21:01 Last Admin: 11/11/19 07:58 Dose: 75 mg Documented by: Pantoprazole Sodium (Protonix) 40 mg PO DAILY [facility] Stop: 12/08/19 08:59 Last Admin: 11/11/19 07:58 Dose: 40 mg Documented by: Potassium Chloride (Klor-Con M20) 20 meq PO DAILY [facility] Stop: 12/08/19 08:59 Last Admin: 11/11/19 07:58 Dose: 20 meq Documented by: Propranolol HCl (Inderal La) 80 mg PO DAILY [facility] Stop: 12/08/19 08:59 Last Admin: 11/11/19 07:57 Dose: 80 mg Documented by:
[2019-11-11] MEDS ORDERED: metroNIDAZOLE 500 MG TAB PO STA (15:56)
[2019-11-11] MEDS ORDERED: SULFAMETHOXAZOLE/TRIMETHOPRIM DS 800/160MG TAB PO ONE (15:56)
--- NOTE | 2019-11-12 08:19 | Discharge Summary ---
Date of Service November 12, 2019 Admission HPI Per Admitting Provider 79 years old male with past medical history of GERD, Martin's, hypertension, prostate cancer status post chemo/radiation and resection, COPD, umbilical hernia status post repair without mesh on November 2017, psoriatic arthritis presented to the ER with abdominal pain associated with vomiting. Patient said for the past few weeks he has been having vomiting during defecation. He saw GI on 02/12/19 and CAT scan was ordered that showed asymmetric wall thickening of the mid sigmoid colon favored to be chronic mid sigmoid colon diverticulitis. He was prescribed Cipro and Flagyl which he completed the course last week. He said his symptoms were improved then about 3 days ago he started to have flu like symptoms with productive cough. He said every time he coughed he vomited. He said that he is having abdominal pain located below his umbilical area. He said pain is intermittent and moderate in intensity. patient said that he has to carry a container with him everywhere he goes to vomit when he cough and during defecation again. He said that he does not have any energy and he feels very weak and chills. He said he has not been eating or drinking due to the vomiting. He said that he scheduled to have an endoscopy and colonoscopy on November 16 with gastro. In the ER labs done show magnesium 0.7, potassium 3.4 and influenza PCR type A positive. CT abd repeat today showed Chronic descending as well as sigmoid diverticulosis with mild acute diverticulitis of the mid sigmoid. Denies any chest pain, palpitation, dizziness, shortness of breath. Principal Diagnosis Influenza A-treated, acute diverticulitis, hypertension Discharge Exam Constitutional WD/WN, vitals as above cooperative and comfortable Eyes PERRL, conjunctivae normal, anicteric sclerae ENMT external ear and nose normal, oropharynx normal Respiratory + cough and + audible wheezes Auscultation: + diminished lung sounds and + wheezes (Occasional wheezing mostly on the right side) Cardiovascular RRR, no murmur, no edema Gastrointestinal (Abdomen) normal bowel sounds, soft, nontender, no hepatosplenomegaly Skin no rashes, warm and dry no jaundice Psychiatric A+Ox3, euthymic affect Lymphatic no cervical or axillary lymphadenopathy no lymphedema Discharge Data Allergies Allergy/AdvReac Type Severity Reaction Status Date / Time oxycodone AdvReac Mild HALLUCINATI Verified 11/07/19 16:43 ONS amoxicillin AdvReac Unknown increased Verified 11/07/19 16:43 lft's clavulanic acid AdvReac Unknown increased Verified 11/07/19 16:43 lft's Consultations 11/07/19 20:34 ED Decision to Admit Stat 11/07/19 22:33 Consult Gastroenterology Routine Ordered Studies 11/07/19 15:54 CT abd pelvis IV con only Stat 11/07/19 17:47 CT angio chest PE protocol Stat Hospital Course (1) Flu-like symptoms: (2) Influenza: Patient is a 79 yr male who presents with flu like symptoms Influenza A CTA:Negative thoracic aorta. No evidence for pulmonary embolus. Influenza virus PCR type A positive Continue Oseltamivir Day 4/ Received gentle IV fluids Blood Cultures: No growth to date Clinically better Advised to use spirometer and increase ambulation Clinically even better today We will get 2 steps O2 saturation before discharge this afternoon (3) Diverticulitis: Left-sided colitis Acute Diverticulitis Vs ischemic Recently completed a course of Cipro and Flagyl 1 week ago for acute diverticulitis --CT ABD:Chronic descending as well as sigmoid diverticulosis with mild acute diverticulitis of the mid sigmoid. No evidence for abscess collection or obstruction. Small periumbilical hernia containing a short segment of small bowel. This appears to be nonobstructive finding. --Stool for C. difficile negative -Continue IV Rocephin and Flagyl while hospitalized --Plan to discharge on Bactrim and Flagyl to complete 10-day course --Tolerating diet --Appreciate GI input and recommendation --Plan for EGD/Colonoscopy as outpatient --Imodium as needed for diarrhea -Diarrhea is controlled and no abdominal pain -Clinically a lot better and will continue the antibiotic to finish his course (4) Hypomagnesemia: Hypomagnesemia Hypokalemia Secondary to GI losses Replete electrolytes as needed Electrolytes corrected HTN Continue lisinopril Hold amlodipine for now H/O SVT Continue propranolol Hyperlipidemia Continue statin H/O COPD Nebs PRN DVT Px: Heparin SQ Code status FULL CODE Disposition PT OT prior to discharge Discharge home this afternoon Total Time Total Time Spent Total Time Spent (In Minutes): 35 minutes Total Time Includes: Examination of the Patient, Discharge Planning, Medication Reconciliation and Communication With Other Providers Discharge Plan Discharge Items Patient Disposition: Home - Self-Care Reason For Visit: ABDOMINAL PAIN/VOMITING Discharge Diagnosis: Influenza A-treated, acute diverticulitis, hypertension Condition on Discharge: Fair Activity: Resume your previous activity Non-emergency contact: Primary Care Provider Call non-emergency contact if: you have any medication questions and your symptoms worsen Follow-up/Referrals: Marcial Franks DO [Primary Care Provider] - 11/16/19 10:45 am (Your appoi ntment is with Dr. Love. Dr. López is not available.) Diet: Heart Healthy Addtl Attending Provider Instructions: Please take precaution to avoid fall. Finish the course of antibiotic Pending Studies at Discharge: No Stand-Alone Forms: My [employer], Smoking Cessation Medications and DC Order Prescriptions: New Lactobacillus acidoph-L.bulgar [Floranex] 1 million cell Tablet 4 tab PO BID 10 Days Qty: 80 RF: 0 sulfamethoxazole-trimethoprim [Bactrim DS] 800-160 mg tablet 1 tab PO BID Qty: 12 RF: 0 metronidazole [Flagyl] 500 mg tablet 500 mg PO TID Qty: 18 RF: 0 Continued amlodipine 2.5 mg Tablet 2 tabs PO DAILY RF: 0 lisinopril 30 mg Tablet 30 mg PO DAILY RF: 0 potassium chloride 10 mEq Tablet Extended Release 2 tabs PO DAILY RF: 0 valacyclovir 500 mg Tablet 500 mg PO BID PRN (Reason: Cold Sores) RF: 0 aspirin 81 mg Tablet,Delayed Release (Dr/Ec) 81 mg PO DAILY RF: 0 tramadol 50 mg Tablet 2 tabs PO Q8 PRN (Reason: Pain) RF: 0 omeprazole 20 mg Capsule,Delayed Release(Dr/Ec) 20 mg PO DAILY RF: 0 albuterol sulfate [Ventolin HFA] 90 mcg/actuation Hfa Aerosol Inhaler 2 puff INHALATION Q4H PRN (Reason: Shortness Of Breath Or Wheezing) RF: 0 atorvastatin 10 mg tablet 10 mg PO DAILY RF: 0 clobetasol [Temovate] 0.05 % cream 1 applic TOPICAL BID PRN (Reason: PSORIASIS FLARE UP) RF: 0 triamcinolone acetonide 0.1 % Cream 1 applic TOPICAL BID PRN (Reason: ITCHING FLARE UP) RF: 0 propranolol 80 mg capsule,extended release 24 hr 80 mg PO DAILY RF: 0 Discharge Orders: Discharge Order (Routine); Ordered 11/11/19 Ordered By: Lulu Loredo Admission Data Admit Date/Time: 11/07/19 21:19 Attending Provider: Lulu Loredo Admit Provider: Marv Conley Primary Care Provider: Marcial Franks Other Providers: Ryan Louis ; Irineo Smith ; Manpreet Valverde Other Interventions: Discharge Summary Assessment (RN) Last Done: 11/11/19 15:10 DC Date/Time DO NOT enter until pt leaves facility: 11/11/19 17:12
== END 2019-11-11 17:12 | disposition home or self-care (01) | DRG 194 ==
LOC: ED 15:38 → 2W 21:19 → SUATTDRO 21:19 → 2W 22:24

== ENCOUNTER 2019-12-10 07:12 | Inpatient (IN) ==
[2019-12-10] MEDS ORDERED: DiphenhydrAMINE HCL 50 MG/ML VIAL ONE (07:23)
[2019-12-10] MEDS ORDERED: methylPREDNISolone 60 MG in SYRINGE 1 ML IV STA (07:24)
[2019-12-10] MEDS ORDERED: methylPREDNISolone 125 MG/2 ML VIAL ONE (07:24)
[2019-12-10] MEDS ORDERED: EPINEPHrine INJ 1 MG/ML AMP ONE (07:24)
[2019-12-10] MEDS ORDERED: EPINEPHrine INJ 1 MG/ML AMP IM STA (07:24)
[2019-12-10] MEDS ORDERED: DiphenhydrAMINE HCL 50 MG/ML VIAL IV STA (07:24)
[2019-12-10 07:32] LABS: Hematocrit (blood only) 42.3 % (42-52); Hemoglobin 14.8 g/dL (14.0-18.0); Mean Corpuscular Volume 88.7 fL (80-100); Mean Platelet Volume 10.1 fL (7.4-10.4); Platelet Count 384 K/uL (130-400); RDW Coefficient of Variation 13.8 % (11.5-14.5); RDW Standard Deviation 45.4 fL (36.4-46.3); Red Blood Count 4.77 M/uL (4.7-6.1); White Blood Count 9.18 K/uL (4.8-10.8)
[2019-12-10] MEDS ORDERED: methylPREDNISolone 125 MG/2 ML VIAL IV STA (07:43)
[2019-12-10 07:48] LABS: BUN Creatinine Ratio 12.4 (10-20); Calcium 8.4 mg/dl (8.5-10.1); Creatinine Clr Calc Pharmacy 55.6 ml/min; Est GFR (African American) 96.9; Est GFR (Non-African American) 83.6; Potassium 3.6 mmol/L (3.5-5.1)
[2019-12-10] MEDS ORDERED: EPINEPHrine 4 MG in DEXTROSE 5% BRADYCARDIA IV SCH (08:00)
--- NOTE | 2019-12-10 08:08 | Anesthesiology Consultation ---
Date of Service December 10, 2019 The patient is a 79 y/o male who woke up at 0400 this morning with a swollen tongue. He drove himself to the ER where he was diagnosed with angioedema. He was given Solumedrol 60 mg IV, epinephrine IM, and diphenhydramine IV. The patient has taken lisinopril for several years, but has no other obvious trigger for angioedema. Dr. Gonzalez called me to evaluate for the possibility of intubation. On my arrival the patient was noted to have a largely swollen tongue but was breathing comfortably and able to talk. His vital signs are stable with SpO2 >96 on room air. His lungs were clear to auscultation. I spoke to pharmacy and the patient was ordered another dose of Solumedrol 60 mg IV as well as ranitidine IV. An epinephrine gtt was ordered for bedside but will only be started if the angioedema fails to improve or worsens since the patient has a history of paroxysmal SVT and aflutter with RVR. FFP is another treatment option that may be of benefit. I discussed the patient with CECILIA Maravilla in the ICU. The patient does not need to be intubated at this point but will go to the ICU for further monitoring. Assessment & Plan (1) Angioedema: Chart Review Chart Review: Patient NOT seen in Pre Admission Testing Consults Requested medical ICU The patient has angioedema. He is stable and does not require intubation at this time. He will be further treated and montiored in the ICU. ASA ASA3 History Height/Weight Height: 5 ft 2 in Weight: 57.7 kg Allergies Allergy/AdvReac Type Severity Reaction Status Date / Time oxycodone AdvReac Mild HALLUCINATI Verified 11/07/19 16:43 ONS amoxicillin AdvReac Unknown increased Verified 11/07/19 16:43 lft's clavulanic acid AdvReac Unknown increased Verified 11/07/19 16:43 lft's Medications Home Medications Medication Instructions Recorded Confirmed Last Taken albuterol sulfate [Ventolin HFA] 2 puff INHALATION Q4H PRN 07/31/18 11/07/19 Unknown amlodipine 2 tabs PO DAILY 07/31/18 11/07/19 07/31/18 aspirin 81 mg PO DAILY 07/31/18 11/07/19 07/31/18 lisinopril 30 mg PO DAILY 07/31/18 11/07/19 07/31/18 omeprazole 20 mg PO DAILY 07/31/18 11/07/19 07/31/18 potassium chloride 2 tabs PO DAILY 07/31/18 11/07/19 07/30/18 tramadol 2 tabs PO Q8 PRN 07/31/18 11/07/19 Unknown valacyclovir 500 mg PO BID PRN 07/31/18 11/07/19 Unknown atorvastatin 10 mg PO DAILY 11/07/19 11/07/19 Unknown clobetasol [Temovate] 1 applic TOPICAL BID PRN 11/07/19 11/07/19 Unknown propranolol 80 mg PO DAILY 11/07/19 11/07/19 Unknown triamcinolone acetonide 1 applic TOPICAL BID PRN 11/07/19 11/07/19 Unknown metronidazole [Flagyl] 500 mg PO TID #18 tab 11/11/19 Unknown sulfamethoxazole-trimethoprim 1 tab PO BID #12 tab 11/11/19 Unknown [Bactrim DS] Active Medications Generic Name Dose Route Start Last Admin Trade Name Freq PRN Reason Stop Dose Admin Ranitidine HCl 50 mg/ Dextrose 102 mls @ 200 mls/hr 12/10/19 08:00 12/10/19 07:55 IV 01/09/20 07:59 200 mls/hr Q8H JOY Administration Past Medical History Medical History (Updated 12/10/19 @ 08:12 by Rajan Haq MD) Acid reflux (Chronic) Angioedema 12/10/19, patient on lisinopril for several years, woke up at 0400 with swollen tongue Angioedema Atrial flutter with rapid ventricular response (Acute) Cervical disc displacement (Chronic) COPD (chronic obstructive pulmonary disease) (Chronic) History of paroxysmal supraventricular tachycardia (Chronic) HLD (hyperlipidemia) (Chronic) HTN (hypertension) (Chronic) Hyperlipidemia Hypokalemia (Acute) Hypomagnesemia (Acute) Prostate cancer (Resolved 10/13/03) "Rising PSA Status post biopsy 10/13/2003 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 Lupron 22.5 mg IM 08/22/2017 Lupron 22.5 mg IM 11/18/2017 Status post completion of salvage radiation therapy 11/18/2017. 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 Status post radical peritoneal prostatectomy 01/04/2004 Stage pT2b pNXM0 Rising PSA post prostatectomy PSA 07/08/2017 at 1.290" Psoriasis (Chronic) Past Family History Family History Other Family history non-contributory Past Surgical History Surgical History H/O hand surgery H/O radical prostatectomy H/O umbilical hernia repair History of tonsillectomy and adenoidectomy Hx of appendectomy Social History Smoking Status: Never smoker tobacco type: cigarettes Hx Alcohol Use: No Hx Substance Use: No Review of Systems no chest pain or sob, patient has large swollen tongue, he is able to talk but speech is modified by swollen tongue Physical Exam Vital Signs Last Vital Signs Temp 36.6 C 12/10/19 07:15 Pulse 68 12/10/19 07:31 Resp 20 12/10/19 07:15 BP 157/100 H 12/10/19 07:31 Pulse Ox 96 12/10/19 07:36 ENMT Mouth: + dentures (partial), + poor dentition, + chipped teeth and + macroglossia (very large edematous tongue) Thyromental Distance: < 3.5 Finger Breadths Mallampati Class: IV Neck normal visual inspection Respiratory normal respiratory effort Auscultation: lungs clear to auscultation bilaterally Cardiovascular Rate/Rhythm: regular rate and regular rhythm Musculoskeletal Spine: no pain with cervical ROM Neurologic moves all extremities Psychiatric Orientation: alert and oriented x 3 Testing Laboratory Results 12/10/19 07:24 12/10/19 07:24 Electrocardiogram Date: 12/10/19 NSR with sinus arrhythmia, rate 66 (1) Angioedema Encounter type: initial encounter Qualified Code(s): T78.3XXA - Angioneurotic edema, initial encounter
--- NOTE | 2019-12-10 08:13 | Emergency Department Note ---
Entered by Gamal Wilson acting as a scribe for Tato Gonzalez MD History of Present Illness General Source: patient History of Present Illness Onset (ago): hour(s) (3hrs 20mins) Location: mouth (tongue) Pain Consistency: + other (worsening) Maximum Pain Intensity: 6 Quality: + other (swelling) Associated symptoms: + other (mild difficulty swallowing); no shortness of breath The patient is a 79 y/o male who presents to the ED w/ CC of worsening swelling to his tongue beginning 3 hours and 20 minutes ago. The patient states his swelling started when he woke up. He reports he developed swelling to his tongue that has worsened. The patient notes he has been on Lisinopril for a few years and has not had this happen to him before. He states he is still able to swallow but has mild difficulty with it. The patient reports he is not short of breath. He denies a history of heart problems. Home Medications Home Medications Medication Instructions Recorded Confirmed Type albuterol sulfate [Ventolin HFA] 2 puff INHALATION Q4H PRN 07/31/18 12/10/19 His tory amlodipine 5 mg PO QAM 07/31/18 12/10/19 History aspirin 81 mg PO QAM 07/31/18 12/10/19 History omeprazole 20 mg PO QAM 07/31/18 12/10/19 History potassium chloride 20 meq PO DAILY@1600 07/31/18 12/10/19 History tramadol 100 mg PO Q8 PRN 07/31/18 12/10/19 History valacyclovir 500 mg PO BID PRN 07/31/18 12/10/19 History atorvastatin 10 mg PO QAM 11/07/19 12/10/19 History clobetasol [Temovate] 1 applic TOPICAL BID PRN 11/07/19 12/10/19 History propranolol 80 mg PO QAM 11/07/19 12/10/19 History triamcinolone acetonide 1 applic TOPICAL BID PRN 11/07/19 12/10/19 History cetirizine 10 mg PO BID #30 tab 12/11/19 Rx prednisone 10 mg PO UD #20 tab 12/11/19 Rx Allergies Allergy/AdvReac Type Severity Reaction Status Date / Time GERALDO Inhibitors Allergy Swelling Verified 12/11/19 08:10 of Lip/Tongue/Throat oxycodone AdvReac Mild HALLUCINATI Verified 12/10/19 08:21 ONS amoxicillin AdvReac Unknown increased Verified 12/10/19 08:21 lft's clavulanic acid AdvReac Unknown increased Verified 12/10/19 08:21 lft's Past Med/Surg History Medical History Acid reflux (Chronic) Angioedema 12/10/19, patient on lisinopril for several years, woke up at 0400 with swollen tongue Cervical disc displacement (Chronic) COPD (chronic obstructive pulmonary disease) (Chronic) History of paroxysmal supraventricular tachycardia (Chronic) HLD (hyperlipidemia) (Chronic) HTN (hypertension) (Chronic) Hypokalemia (Acute) Hypomagnesemia (Acute) Prostate cancer (Resolved 10/13/03) "Rising PSA Status post biopsy 10/13/2003 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 Lupron 22.5 mg IM 08/22/2017 Lupron 22.5 mg IM 11/18/2017 Status post completion of salvage radiation therapy 11/18/2017. 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 Status post radical peritoneal prostatectomy 01/04/2004 Stage pT2b pNXM0 Rising PSA post prostatectomy PSA 07/08/2017 at 1.290" Psoriasis (Chronic) Surgical History H/O hand surgery H/O radical prostatectomy H/O umbilical hernia repair History of tonsillectomy and adenoidectomy Hx of appendectomy Family History Sister Breast cancer Social History Preferred Language: Tajik Communication Ability: Effective Engravings Polisher Required: No Beliefs That Will Affect Care: None marital status: Single Current Living Situation: Alone Feels Safe at Home: Yes Smoking Status: Former smoker Tobacco Type: cigarettes ; Second Hand Exposure: No ; Hx Alcohol Use: No Hx Substance Use: No Review of Systems See HPI for pertinent positives & negatives. and A total of 10 systems reviewed and were otherwise negative Physical Exam Vital Signs Vital Signs - 24 hr 12/10/19 07:15 12/10/19 07:22 12/10/19 07:31 Temperature 36.6 C Temperature Source Oral Pulse Rate 82 75 68 Pulse Rate from SpO2 Sensor 74 69 Respiratory Rate 20 Blood Pressure 156/93 H 184/115 H 157/100 H Blood Pressure Mean 114 141 118 Pulse Oximetry 97 93 95 Oxygen Delivery Method Room Air Sepsis Recent Fever Within 48 Hours No Sepsis New/Unexplained Change in Mental Status No Sepsis Action Taken by Nursing No Action Required 12/10/19 07:36 12/10/19 07:45 12/10/19 08:01 Temperature Temperature Source Pulse Rate 72 65 Pulse Rate from SpO2 Sensor 73 66 Respiratory Rate Blood Pressure 177/84 H 159/84 H Blood Pressure Mean 123 117 Pulse Oximetry 96 96 97 Oxygen Delivery Method Room Air Sepsis Recent Fever Within 48 Hours Sepsis New/Unexplained Change in Mental Status Sepsis Action Taken by Nursing 12/10/19 08:15 Temperature Temperature Source Pulse Rate 70 Pulse Rate from SpO2 Sensor 70 Respiratory Rate Blood Pressure 159/94 H Blood Pressure Mean 116 Pulse Oximetry 96 Oxygen Delivery Method Sepsis Recent Fever Within 48 Hours Sepsis New/Unexplained Change in Mental Status Sepsis Action Taken by Nursing GENERAL: Patient is in no acute distress. HEENT: No acute trauma, normocephalic atraumatic, mucous membranes moist, no nasal congestion, no scleral icterus. Angioedema of his entire anterior tongue making it difficult to speak. No swelling to the posterior oropharynx or uvula. NECK: No stridor, no adenopathy, no meningismus, trachea is midline. LUNGS: Clear to auscultation bilaterally, no wheeze, no rhonchi, breath sounds equal. HEART: Without murmurs gallops or rubs, regular rate and rhythm. ABDOMEN: Soft, nontender, bowel sounds positive, no hernias, no peritonitis. EXTREMITIES: No cyanosis or edema, full range of motion of all the joints without pain or difficulty, no signs for acute trauma. NEUROLOGIC: Oriented x 3, no acute motor or sensory deficits, no focal weakness. SKIN: No rash, no jaundice, no diaphoresis. Course Course 0720: Past medical records reviewed. The patient was evaluated in room A01. A complete history and physical examination was performed. 0726: I discussed the patient's case with Dr. Haq, Anesthesia. He or one of his partners will be down to evaluate the patient. 0747: I discussed the patient's case with Dr. Candelario, ICU. He states the patient should have a hospitalist evaluation, and he will be on consult. 0753: I reviewed the patient's case with DRE Shepherd, [facility], attending Dr. Zafar. She will evaluate the patient for further management. 0755: Upon reevaluation, the patient is resting comfortably. I discussed laboratory and radiographic results with him. He verbalized agreement of the treatment plan. The patient will be evaluated for further management and care. 0810: I reevaluated the patient. He is resting. Administered Medications Discontinued Medications Diphenhydramine HCl (Benadryl) Confirm Administered Dose 50 mg .ROUTE .STK-MED ONE Stop: 12/10/19 07:24 Last Admin: 12/10/19 07:33 Dose: Not Given Documented by: [id number] Diphenhydramine HCl (Benadryl) 25 mg IV NOW STA Stop: 12/10/19 07:25 Last Admin: 12/10/19 07:33 Dose: 25 mg Documented by: [id number] Epinephrine HCl (Epinephrine) Confirm Administered Dose 1 mg .ROUTE .STK-MED ONE Stop: 12/10/19 07:25 Last Admin: 12/10/19 07:34 Dose: Not Given Documented by: [id number] Epinephrine HCl (Epinephrine) 0.2 mg IM NOW STA Stop: 12/10/19 07:25 Last Admin: 12/10/19 07:34 Dose: 0.2 mg Documented by: [id number] Methylprednisolone 60 mg/ (Syringe) 1.96 mls @ 1.5 mls/min IV NOW STA Stop: 12/10/19 07:25 Last Admin: 12/10/19 07:34 Dose: 1.5 mls/min Documented by: [id number] Ranitidine HCl 50 mg/ Dextrose 102 mls @ 200 mls/hr IV Q8H JOY Stop: 01/09/20 07:59 Last Infusion: 12/11/19 08:25 Dose: 0 mls/hr Documented by: [id number] Admin: 12/11/19 07:49 Dose: 200 mls/hr Documented by: [id number] Infusion: 12/11/19 02:14 Dose: 0 mls/hr Documented by: [id number] Admin: 12/11/19 00:54 Dose: 200 mls/hr Documented by: [id number] Infusion: 12/10/19 18:11 Dose: 0 mls/hr Documented by: [id number] Admin: 12/10/19 17:17 Dose: 200 mls/hr Documented by: [id number] Infusion: 12/10/19 08:28 Dose: 0 mls/hr Documented by: [id number] Admin: 12/10/19 07:55 Dose: 200 mls/hr Documented by: [id number] Methylprednisolone 60 mg/ (Syringe) 0.96 mls @ 1.5 mls/min IV Q6H JOY Stop: 01/09/20 17:59 Last Admin: 12/11/19 07:49 Dose: 1.5 mls/min Documented by: [id number] Admin: 12/11/19 02:48 Dose: 1.5 mls/min Documented by: [id number] Admin: 12/10/19 20:46 Dose: 1.5 mls/min Documented by: [id number] Admin: 12/10/19 14:14 Dose: 1.5 mls/min Documented by: [id number] Lactated Ringer's (Lr) 1,000 mls @ 100 mls/hr IV .Q10H JOY Stop: 01/09/20 12:14 Last Infusion: 12/11/19 09:43 Dose: 0 mls/hr Documented by: [id number] Admin: 12/11/19 05:18 Dose: 100 mls/hr Documented by: [id number] Infusion: 12/11/19 00:54 Dose: 100 mls/hr Documented by: [id number] Infusion: 12/10/19 18:11 Dose: 100 mls/hr Documented by: [id number] Infusion: 12/10/19 14:07 Dose: 0 mls/hr Documented by: [id number] Admin: 12/10/19 14:00 Dose: 100 mls/hr Documented by: [id number] Magnesium Sulfate/Dextrose (Magnesium Sulfate / D5w) 1 gm in 100 mls @ 100 mls/hr IV Q1H JOY Stop: 12/10/19 16:59 Last Infusion: 12/10/19 18:22 Dose: 0 mls/hr Documented by: [id number] Admin: 12/10/19 17:17 Dose: 100 mls/hr Documented by: [id number] Infusion: 12/10/19 16:50 Dose: 100 mls/hr Documented by: [id number] Admin: 12/10/19 15:50 Dose: 100 mls/hr Documented by: [id number] Infusion: 12/10/19 15:00 Dose: 100 mls/hr Documented by: [id number] Admin: 12/10/19 14:00 Dose: 100 mls/hr Documented by: [id number] Lidocaine (Lidoderm 5%) 1 patch TD DAILY@1930 PRN PRN Reason: Pain Stop: 01/09/20 19:17 Last Admin: 12/10/19 19:44 Dose: 1 patch Documented by: [id number] Methylprednisolone (Solumedrol) Confirm Administered Dose 125 mg .ROUTE .STK-MED ONE Stop: 12/10/19 07:25 Last Admin: 12/10/19 07:34 Dose: Not Given Documented by: [id number] Methylprednisolone (Solumedrol) 60 mg IV NOW STA Stop: 12/10/19 07:44 Last Admin: 12/10/19 07:56 Dose: 60 mg Documented by: [id number] Miscellaneous (Remove Lidoderm Patch) 1 ea N/A DAILY@0730 JOY Stop: 01/10/20 07:29 Last Admin: 12/11/19 07:49 Dose: 1 ea Documented by: [id number] Critical Care Time Critical Care Time: Yes Total Critical Care Time: 33 I have personally spent greater than 33 minutes of critical care time in the direct management of this patient. This includes bedside care, interpretation of diagnostic studies and testing, discussion with consultants, the patient, and family members, and other required patient management activities. This 33 minutes is in excess of all separately billable procedures. Medical Decision Making Differential Diagnosis Differential diagnosis includes: allergic reaction, angioedema, airway compromise, infection, abscess, uvular edema, dental infection. Medical Records Attestation: I reviewed the patient's medical records. Home Medications Current Medication List: was personally reviewed by me Laboratory Data Attestation: I reviewed the patient's lab results. Result diagrams: 12/11/19 04:23 12/11/19 04:23 Lab Results 12/10/19 12/10/19 Range/Units 07:24 07:24 WBC 9.18 (4.8-10.8) K/uL RBC 4.77 (4.7-6.1) M/uL Hgb 14.8 (14.0-18.0) g/dL Hct 42.3 (42-52) % MCV 88.7 (80-100) fL MCH 31.0 (25-34) pg MCHC 35.0 (32-36) g/dL RDW Std Deviation 45.4 (36.4-46.3) fL RDW Coeff of Arlen 13.8 (11.5-14.5) % Plt Count 384 (130-400) K/uL MPV 10.1 (7.4-10.4) fL Sodium 140 (136-145) mmol/L Potassium 3.6 (3.5-5.1) mmol/L Chloride 105 (98-107) mmol/L Carbon Dioxide 30 (21-32) mmol/L Anion Gap 5.0 (3-11) BUN 11 (7-18) mg/dl Creatinine 0.86 (0.6-1.4) mg/dl Est Cr Clr Drug Dosing 55.6 ml/min Est GFR ( Amer) 96.9 Est GFR (Non-Af Amer) 83.6 BUN/Creatinine Ratio 12.4 (10-20) Glucose 105 H (70-99) mg/dl Calcium 8.4 L (8.5-10.1) mg/dl Magnesium Cancelled ECG Data Attestation: I personally reviewed and interpreted this ECG as follows: Indication: + other (allergic reaction) Rate (beats per minute): 66 Rhythm: + sinus with SA ECG Intervals/blocks: + Normal QT-c (459) ECG ST segments: no ST elevation ECG Findings: no PVCs Blood Pressure Blood Pressure Findings: Elevated blood pressure Blood Pressure Disposition: further management by hospitalist VEENA Schmidt There is no leukocytosis or concerning anemia. No significant electrolyte abnormality or kidney failure. EKG shows a sinus rhythm with sinus arrhythmia, no acute ischemia. On exam, the patient has significant anterior tongue edema. No uvular edema or edema to the posterior aspect of the throat. There was no wheezing, the patient was not hypoxic or toxic. The patient appears to be suffering from angioedema secondary to his GERALDO inhibitor use. He was placed on the surveillance monitor. He did receive IV Solu- Medrol, IM epinephrine, IV Benadryl. The patient feels slightly improved since receiving his meds. Clinically, the edema has not worsened. I did speak to anesthesiology after seeing the amount of tongue edema. Patient was evaluated by anesthesiology, emergent intubation was not felt warranted. I spoke to the on-call critical care physician, I spoke with the on-call hospitalist. The patient will require a hospital stay, he will be sent to the ICU for now given the need for close airway monitoring. The patient is aware of all his findings and the reason for the hospitalization. Continuous Cardiac Monitoring: An order was placed for continuous cardiac mo nitoring. The monitor shows a rate of 72 with sinus rhythm with sinus arrhythmia. Discharge Plan Visit Data *Final* Discharge Date/Time: 12/10/19 08:52 Chief Complaint: Allergic Reaction Stated Complaint: TONGUE SWOLLEN,BLOOD IN SPIT ED Provider: Tato Gonzalez Discharge Problem: Angioedema, Tongue swelling Patient Disposition: Admitted As Inpatient Condition: Good Discharge Instructions Interventions: ED Discharge Assessment Last Done: 12/10/19 08:52 The scribe's documentation has been prepared under my direction and personally reviewed by me in its entirety. I confirm that the note above accurately reflects all work, treatment, procedures, and medical decision making performed by me.
[2019-12-10] MEDS ORDERED: ICU PROTOCOL FOR HYPERGLYCEMIA PRN (09:15)
--- NOTE | 2019-12-10 10:25 | History & Physical Report ---
Date of Service December 10, 2019 Assessment & Plan (1) Angioedema: -Admit to ICU -Patient presenting from home with reports of a swollen tongue that he noticed at 4 AM this morning -Noted patient is on lisinopril, which she has been taking for the past few years. Other new medication exposures include IV ceftriaxone, IV Flagyl, p.o. Bactrim, p.o. Flagyl, Tamiflu during admission about 1 month ago. -No new food exposures -Currently hemodynamically stable, saturating well on room air; evaluated by anesthesia who does not feel the patient needs prophylactic intubation at this time -Epinephrine drip was considered however not initiated secondary to patient's history of paroxysmal SVT -Received IV diphenhydramine, IM epinephrine, Solu-Medrol 60 mg, IV ranitidine -Further management as per ICU (2) HTN (hypertension): -BP currently controlled, holding lisinopril secondary to above -Holding all p.o. meds due to severe angioedema -Monitor BP, provide IV antihypertensive if needed (3) History of paroxysmal supraventricular tachycardia: -Typically managed on propranolol, holding as above -Monitor on telemetry (4) Acid reflux: -Receiving IV ranitidine due to angioedema (5) DVT prophylaxis: -SCDs for now History of Present Illness Chief Complaint: Swollen tongue Primary Care Provider: Marcial Franks, 79-year-old male who presents the ED for evaluation of swollen tongue. Patient reports he woke up around 4 AM and noticed the symptoms. Patient drove himself to the ED for further evaluation. It is noted the patient is on lisinopril however he has been on it for the past couple of years. Recently admitted to [facility] the beginning of November for treatment of diverticulitis and influenza. Patient was discharged on Tamiflu, Flagyl, Bactrim. He completed those courses a few weeks ago. Denies any other new medications or new food exposures. Patient denies shortness of breath. He is able to handle his secretions. No chest pain. Denies lightheadedness, dizziness, diaphoresis, syncopal events. Denies abdominal pain, nausea, vomiting, diarrhea. No other recent illnesses, fevers, chills. He denies any urinary symptoms. In the ED, patient has remained hemodynamically stable. He received IV diphenhydramine, IM epinephrine, Solu-Medrol 60 mg IV, IV ranitidine. Patient was evaluated by anesthesia who does not feel the patient needs prophylactic intubation at this time. Patient will be admitted to ICU for close monitoring. Allergies Allergy/AdvReac Type Severity Reaction Status Date / Time oxycodone AdvReac Mild HALLUCINATI Verified 12/10/19 08:21 ONS amoxicillin AdvReac Unknown increased Verified 12/10/19 08:21 lft's clavulanic acid AdvReac Unknown increased Verified 12/10/19 08:21 lft's Home Medications Home Medications Medication Instructions Recorded Confirmed Type albuterol sulfate [Ventolin HFA] 2 puff INHALATION Q4H PRN 07/31/18 12/10/19 History amlodipine 5 mg PO QAM 07/31/18 12/10/19 History aspirin 81 mg PO QAM 07/31/18 12/10/19 History lisinopril 30 mg PO QAM 07/31/18 12/10/19 History omeprazole 20 mg PO QAM 07/31/18 12/10/19 History potassium chloride 20 meq PO DAILY@1600 07/31/18 12/10/19 History tramadol 100 mg PO Q8 PRN 07/31/18 12/10/19 History valacyclovir 500 mg PO BID PRN 07/31/18 12/10/19 History atorvastatin 10 mg PO QAM 11/07/19 12/10/19 History clobetasol [Temovate] 1 applic TOPICAL BID PRN 11/07/19 12/10/19 History propranolol 80 mg PO QAM 11/07/19 12/10/19 History triamcinolone acetonide 1 applic TOPICAL BID PRN 11/07/19 12/10/19 History Past Med/Surg History Medical History Acid reflux (Chronic) Angioedema 12/10/19, patient on lisinopril for several years, woke up at 0400 with swollen tongue Cervical disc displacement (Chronic) COPD (chronic obstructive pulmonary disease) (Chronic) History of paroxysmal supraventricular tachycardia (Chronic) HLD (hyperlipidemia) (Chronic) HTN (hypertension) (Chronic) Hypokalemia (Acute) Hypomagnesemia (Acute) Prostate cancer (Resolved 10/13/03) "Rising PSA Status post biopsy 10/13/2003 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 Lupron 22.5 mg IM 08/22/2017 Lupron 22.5 mg IM 11/18/2017 Status post completion of salvage radiation therapy 11/18/2017. 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 Status post radical peritoneal prostatectomy 01/04/2004 Stage pT2b pNXM0 Rising PSA post prostatectomy PSA 07/08/2017 at 1.290" Psoriasis (Chronic) Surgical History H/O hand surgery H/O radical prostatectomy H/O umbilical hernia repair History of tonsillectomy and adenoidectomy Hx of appendectomy Family History Sister Breast cancer Social History Preferred Language: Chinese Communication Ability: Effective Senior Payroll Administrator Required: No Beliefs That Will Affect Care: None marital status: Single Current Living Situation: Alone Other Information That Helps Us Care for You: No Feels Safe at Home: Yes Smoking Status: Former smoker Tobacco Type: cigarettes ; Second Hand Exposure: No ; Hx Alcohol Use: No Hx Substance Use: No Review of Systems Review of Systems: ROS per HPI, all other systems reviewed and negative Physical Exam Physical Exam: Please refer to Dr. Zafar's addendum for physical exam Results & Data Vital Signs (Past 12 Hours) Vital Signs Temp Pulse Pulse Resp BP BP Pulse Ox 12/10/19 09:17 36.9 C 73 21 143/84 H 93 12/10/19 08:30 167/99 H 12/10/19 08:15 70 159/94 H 96 12/10/19 08:01 65 159/84 H 97 12/10/19 07:45 72 177/84 H 96 12/10/19 07:36 96 12/10/19 07:31 68 157/100 H 95 12/10/19 07:22 75 184/115 H 93 12/10/19 07:15 36.6 C 82 20 156/93 H 97 Laboratory Results Short CBC 12/10/19 Range/Units 07:24 WBC 9.18 (4.8-10.8) K/uL Hgb 14.8 (14.0-18.0) g/dL Hct 42.3 (42-52) % Plt Count 384 (130-400) K/uL BMP 12/10/19 07:24 Sodium 140 Potassium 3.6 Chloride 105 Carbon Dioxide 30 BUN 11 Creatinine 0.86 Glucose 105 H Calcium 8.4 L Code Status & VTE Plan Code Status Patient is a full code as per Dr. Zafar's discussion with him. VTE Prophylaxis Plan VTE Prophylaxis will be ordered: Yes Supervising Physician Co-Signing Physician Notes I performed a history and examination of the patient on 12/10/2019. i have discuss ed the patient's management with the advanced practitioner. Please refer to the MINER ASSISTANT's note for the documented findings and plan of care. Patient woke up at around 4 AM with a swollen tongue and drove to the ER. He denies any difficulty swallowing or difficulty breathing. He has been on lisinopril for a long time and has not had any new medications recently. He was admitted to the hospital in the beginning of November with diverticulitis and was discharged on Bactrim and Flagyl which he finished a while ago. He denies any other concerns. Review of systems was otherwise negative. On physical exam he had a markedly swollen tongue which was causing dysarthria. It was difficult to visualize the back of the throat. His lips were not swollen his heart and lung sounds were unremarkable and his abdomen was soft and nontender. No rash was observed in the skin. He did not have any pitting edema. The patient likely has angioedema, probably secondary to lisinopril. He will be admitted to the ICU for close monitoring. He has been given treatment in the ER as discussed.
--- NOTE | 2019-12-10 12:50 | Critical Care Consultation ---
Date of Consultation December 10, 2019 Assessment & Plan (1) Angioedema: Angioedema in the setting of lisinopril use. This is a rather idiosyncratic reaction. He received steroids, epinephrine and antihistamines. We will continue steroids for the time being. He will need a 5 to 7-day taper. He will need an allergy and immunology evaluation in the near future he will have to absolutely avoid any GERALDO inhibitors and angiotensin receptor blockers. I have ordered for complement levels and C1 esterase inhibitor function. His airway appears to be intact. His swelling appears to be improving. I do not think that we need to pursue FFP or ecallantide or icatibant therapy at this time. CRITICAL CARE TIME - I have personally spent 30 minutes of critical care time in the direct management of this patient. This is a life/limb threatening event. This includes time spent evaluating patient, direct bedside care, chart review, placing orders, interpretation of diagnostic studies, discussion with consultants, patient, and family members, as well as other required patient management act ivities. This time is exclusive of all separately billable procedures, and teaching time and separate from and in addition to any other critical care service time. (2) History of paroxysmal supraventricular tachycardia: (3) Cervical disc displacement: (4) HTN (hypertension): History of Present Illness Reason for Consultation: Angioedema Requesting Physician: Dr. Zafar Attending Physician: Dallin Zafar MD History of Present Illness This is a 79-year-old male with a past medical history of GERD, Martin's esophagus, hypertension, prostate cancer status post chemoradiation and resection and umbilical hernia repair who was recently in the hospital on 11/12/2019 for influenza A and left-sided colitis. He finished a course of Cipro and Flagyl several weeks ago. He notes that this morning he woke up and noticed that he had a very large and swollen tongue around 4 AM. He notes that he woke up because he needs to urinate in the morning. He denied any chest pain, fevers, chills, nausea, vomiting or shortness of breath associated with these findings. He notes that he has been on lisinopril for the last 2 years and has not had any issues with swelling in the past. He noted that he had some trouble with garbled speech and swallowing early this morning and called his sister. He drove himself to the hospital and was evaluated in the emergency department. The emergency department administered IM epinephrine, Solu-Medrol and antihistamines. His swelling has improved substantially. He notes that his speech is much improved. When I entered the room he was sleeping and comfortable. During the examination and interview, he noted that he was feeling well. He lives alone in a house. He is able to take care of his activities of daily living without issue. Allergies Allergy/AdvReac Type Severity Reaction Status Date / Time lisinopril Allergy Anaphylaxis Verified 12/10/19 12:26 oxycodone AdvReac Mild HALLUCINATI Verified 12/10/19 08:21 ONS amoxicillin AdvReac Unknown increased Verified 12/10/19 08:21 lft's clavulanic acid AdvReac Unknown increased Verified 12/10/19 08:21 lft's Home Medications Home Medications Medication Instructions Recorded Confirmed Type albuterol sulfate [Ventolin HFA] 2 puff INHALATION Q4H PRN 07/31/18 12/10/19 History amlodipine 5 mg PO QAM 07/31/18 12/10/19 History aspirin 81 mg PO QAM 07/31/18 12/10/19 History lisinopril 30 mg PO QAM 07/31/18 12/10/19 History omeprazole 20 mg PO QAM 07/31/18 12/10/19 History potassium chloride 20 meq PO DAILY@1600 07/31/18 12/10/19 History tramadol 100 mg PO Q8 PRN 07/31/18 12/10/19 History valacyclovir 500 mg PO BID PRN 07/31/18 12/10/19 History atorvastatin 10 mg PO QAM 11/07/19 12/10/19 History clobetasol [Temovate] 1 applic TOPICAL BID PRN 11/07/19 12/10/19 History propranolol 80 mg PO QAM 11/07/19 12/10/19 History triamcinolone acetonide 1 applic TOPICAL BID PRN 11/07/19 12/10/19 History Patient History Medical History Acid reflux (Chronic) Angioedema 12/10/19, patient on lisinopril for several years, woke up at 0400 with swollen tongue Cervical disc displacement (Chronic) COPD (chronic obstructive pulmonary disease) (Chronic) History of paroxysmal supraventricular tachycardia (Chronic) HLD (hyperlipidemia) (Chronic) HTN (hypertension) (Chronic) Hypokalemia (Acute) Hypomagnesemia (Acute) Prostate cancer (Resolved 10/13/03) "Rising PSA Status post biopsy 10/13/2003 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 Lupron 22.5 mg IM 08/22/2017 Lupron 22.5 mg IM 11/18/2017 Status post completion of salvage radiation therapy 11/18/2017. 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 Status post radical peritoneal prostatectomy 01/04/2004 Stage pT2b pNXM0 Rising PSA post prostatectomy PSA 07/08/2017 at 1.290" Psoriasis (Chronic) Surgical History H/O hand surgery H/O radical prostatectomy H/O umbilical hernia repair History of tonsillectomy and adenoidectomy Hx of appendectomy Family History Sister Breast cancer Social History Preferred Language: Italian Communication Ability: Effective Weight Count Operator Required: No Beliefs That Will Affect Care: None marital status: Single Current Living Situation: Alone Other Information That Helps Us Care for You: No Feels Safe at Home: Yes Smoking Status: Former smoker Tobacco Type: cigarettes ; Second Hand Exposure: No ; Hx Alcohol Use: No Hx Substance Use: No Review of Systems Review of Systems: All systems reviewed & are unremarkable except as noted in Subjective Physical Exam Constitutional: WD/WN, vitals as above average body habitus Eyes: PERRL, conjunctivae normal, anicteric sclerae ENMT: Mallampati Class: IV Large and swollen tongue. I have able to see some in the posterior oropharynx. He is able to phonate easily. He is swallowing secretions. Neck: trachea midline, no thyromegaly Respiratory: normal respiratory effort, lungs clear to auscultation Cardiovascular: RRR, no murmur, no edema Gastrointestinal (Abdomen): normal bowel sounds, soft, nontender, no hepatosplenomegaly Musculoskeletal: no cyanosis or clubbing, extremities motor strength 5/5 Skin: no rashes, warm and dry Neurologic: PERRL, EOMI, accommodation nl, no face palsy, no dysarthria Psychiatric: A+Ox3, euthymic affect Lymphatic: no cervical lymphadenopathy Results & Data ([facility]) Vital Signs (Past 12 Hours) Vital Signs Temp Pulse Pulse Resp BP BP Pulse Ox 12/10/19 11:19 74 15 149/89 H 95 12/10/19 10:19 74 14 145/84 H 95 12/10/19 09:19 73 22 143/84 H 93 12/10/19 09:17 98.4 F 73 21 143/84 H 93 12/10/19 08:30 167/99 H 12/10/19 08:15 70 159/94 H 96 12/10/19 08:01 65 159/84 H 97 12/10/19 07:45 72 177/84 H 96 12/10/19 07:36 96 12/10/19 07:31 68 157/100 H 95 12/10/19 07:22 75 184/115 H 93 12/10/19 07:15 97.9 F 82 20 156/93 H 97 I reviewed the patient's pertinent labs and emergency department notes. I did discuss the case personally with emergency department physician Coding Level of Care Code Critical Care 1st 30-74 mins Diagnoses Angioedema T78.3XXA History of paroxysmal supraventricular tachycardia Z86.79 Cervical disc displacement M50.20 HTN (hypertension) I10 Time Spent (min) 30
[2019-12-10] MEDS: LACTATED RINGER'S 1,000 ML IV SCH (14:00)
[2019-12-10] MEDS: MAGNESIUM SULFATE / D5W 1 GM/100 ML BAG IV SCH ×3 (14:00→17:17)
[2019-12-10] MEDS: methylPREDNISolone 60 MG in SYRINGE 0 ML IV SCH ×2 (14:14→20:46)
--- NOTE | 2019-12-10 16:43 | Electrocardiogram Report ---
Test Reason : Blood Pressure : / mmHG Vent. Rate : 066 BPM Atrial Rate : 066 BPM P-R Int : 150 ms QRS Dur : 090 ms QT Int : 438 ms P-R-T Axes : 074 016 031 degrees QTc Int : 459 ms Normal sinus rhythm with sinus arrhythmia Normal ECG When compared with ECG of 07-NOV-2019 16:01, No significant change was found Confirmed by Hong Ruvalcaba ([id number]) on 12/10/2019 4:43:09 PM Referred By: REFERRED SELF Confirmed By:Hong Ruvalcaba
--- NOTE | 2019-12-10 17:05 | Allergy & Immunology Consult ---
Date of Consultation December 10, 2019 Assessment & Plan (1) Angioedema: Patient's reaction is most likely related to a lisinopril induced angioedema. This can occur even in patients who have been on HARMEET inhibitors for years, and almost always involves angioedema of oral cavity or lips. The differential would also include idiopathic angioedema, acquired angioedema. He is outside of the age range for which I would consider hereditary angioedema. A C4 as well as C1 inhibitor was all ready sent. The C4 should be sufficient screen for acquired angioedema. In terms of treatment, Harmeet induced angioedema typically does not respond well to steroids or antihistamines. In this setting, the swelling will self resolve in 24-48 hours, and supportive care is needed. At this point, the patient does not require airway protection, and should be outside the window for which this would be concerning. I anticipate that symptoms will start to get better and should resolve completely. However, I do recommend we still continue a tapering course of prednisone (~40 mg) as well as a nonsedating antihistamine such as cetirizine b.i.d. for at least a few days. This would cover for the potential of idiopathic angioedema, which in contrast to HARMEET induced angioedema, would be responsive to antihistamines and steroids. His symptoms are significantly better per the patient. I anticipate that by the AM symptoms should be completely gone. It would be safe to discharge. I will set up a followup visit in my clinic. Please discharge him on cetirizine 10 mg BID to be continued until I see him in the next 2 weeks or so. Prednisone can be tapered by 10 mg every 2 days - 40 mg x 2 d, 20 mg x 2 d, 10 mg x 2d. I will followup on his pending labs. (2) Adverse drug reaction: The patient should continue to avoid Lisinopril as well as all Harmeet inhibitors moving forward. ARBs are safe to use and this can be started if needed for blood pressure control. History of Present Illness Attending Physician: Dallin Zafar MD History of Present Illness Patient presents with a history of tongue swelling that started at approximately 4:00 a.m. when he woke up. He presented to the emergency room for further evaluation. The patient has been on lisinopril for a couple years. In terms of other medications, he had a recent admission for diverticulitis and influenza and was treated with Tamiflu, Flagyl, Bactrim. These medications were completed well before this presentation. He did not note any other triggering factors. There were no other new medications or foods. There were no associated symptoms such as wheezing, hives, lightheadedness. He was treated with IV diphenhydramine, epinephrine, Solu-Medrol, Ranitidine. Allergies Allergy/AdvReac Type Severity Reaction Status Date / Time lisinopril Allergy Anaphylaxis Verified 12/10/19 12:26 oxycodone AdvReac Mild HALLUCINATI Verified 12/10/19 08:21 ONS amoxicillin AdvReac Unknown increased Verified 12/10/19 08:21 lft's clavulanic acid AdvReac Unknown increased Verified 12/10/19 08:21 lft's Home Medications Home Medications Medication Instructions Recorded Confirmed Type albuterol sulfate [Ventolin HFA] 2 puff INHALATION Q4H PRN 07/31/18 12/10/19 History amlodipine 5 mg PO QAM 07/31/18 12/10/19 History aspirin 81 mg PO QAM 07/31/18 12/10/19 History lisinopril 30 mg PO QAM 07/31/18 12/10/19 History omeprazole 20 mg PO QAM 07/31/18 12/10/19 History potassium chloride 20 meq PO DAILY@1600 07/31/18 12/10/19 History tramadol 100 mg PO Q8 PRN 07/31/18 12/10/19 History valacyclovir 500 mg PO BID PRN 07/31/18 12/10/19 History atorvastatin 10 mg PO QAM 11/07/19 12/10/19 History clobetasol [Temovate] 1 applic TOPICAL BID PRN 11/07/19 12/10/19 History propranolol 80 mg PO QAM 11/07/19 12/10/19 History triamcinolone acetonide 1 applic TOPICAL BID PRN 11/07/19 12/10/19 History Patient History Medical History Acid reflux (Chronic) Angioedema 12/10/19, patient on lisinopril for several years, woke up at 0400 with swollen tongue Cervical disc displacement (Chronic) COPD (chronic obstructive pulmonary disease) (Chronic) History of paroxysmal supraventricular tachycardia (Chronic) HLD (hyperlipidemia) (Chronic) HTN (hypertension) (Chronic) Hypokalemia (Acute) Hypomagnesemia (Acute) Prostate cancer (Resolved 10/13/03) "Rising PSA Status post biopsy 10/13/2003 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 Lupron 22.5 mg IM 08/22/2017 Lupron 22.5 mg IM 11/18/2017 Status post completion of salvage radiation therapy 11/18/2017. 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 Status post radical peritoneal prostatectomy 01/04/2004 Stage pT2b pNXM0 Rising PSA post prostatectomy PSA 07/08/2017 at 1.290" Psoriasis (Chronic) Surgical History H/O hand surgery H/O radical prostatectomy H/O umbilical hernia repair History of tonsillectomy and adenoidectomy Hx of appendectomy Family History Sister Breast cancer Social History Preferred Language: Citizen Of [place] Communication Ability: Effective Director Of Maternity Services Required: No Beliefs That Will Affect Care: None marital status: Single Current Living Situation: Alone Other Information That Helps Us Care for You: No Feels Safe at Home: Yes Smoking Status: Former smoker Tobacco Type: cigarettes ; Second Hand Exposure: No ; Hx Alcohol Use: No Hx Substance Use: No Review of Systems Review of Systems: All systems reviewed & are unremarkable except as noted in HPI & below Physical Exam Physical Exam: General: alert and oriented. Head: normal in appearance Ears: tympanic membranes clear bilaterally Eyes: sclera anicteric, no conjunctival injection Nose: nasal mucosa without edema, without erythema, without bogginess Throat: tongue swelling is present. pt is able to close his mouth. Able to control secretions. Able to speak in full sentences. oropharynx clear, no cobbl estoning, tonsil exam unremarkable Neck and lymphatics: without lymphadenopathy or thyromegaly. Trachea Midline. No masses appreciated. Cardiovascular: regular rate and rhythm, normal S1 and S2. No murmurs, rubs, gallops appreciated. Lungs: Clear to auscultation bilaterally. No wheezing, rhonchi, crackles. Abdomen: Soft, non-tender, normal bowel sounds. Peripheral vascular and extremities: no cyanosis, clubbing, edema. Skin: normal in appearance. No rashes or lesions visualized. Results & Data Vital Signs (Past 12 Hours) Vital Signs Temp Pulse Pulse Resp BP BP Pulse Ox 12/10/19 15:19 88 19 132/91 93 12/10/19 14:19 86 21 120/77 90 12/10/19 14:00 88 12 130/85 94 12/10/19 12:19 88 22 145/96 H 96 12/10/19 11:19 74 15 149/89 H 95 12/10/19 10:19 74 14 145/84 H 95 12/10/19 09:19 73 22 143/84 H 93 12/10/19 09:17 36.9 C 73 21 143/84 H 93 12/10/19 08:30 167/99 H 12/10/19 08:15 70 159/94 H 96 12/10/19 08:01 65 159/84 H 97 12/10/19 07:45 72 177/84 H 96 12/10/19 07:36 96 12/10/19 07:31 68 157/100 H 95 12/10/19 07:22 75 184/115 H 93 12/10/19 07:15 36.6 C 82 20 156/93 H 97 Coding Level of Care Code 68395 Initial Inpt Care Lvl 2 Diagnoses Angioedema T78.3XXA Adverse drug reaction T50.905A
[2019-12-10] MEDS ORDERED: Nursing to Pharmacy Communication ONE (19:13)
[2019-12-10] MEDS ORDERED: LIDOCAINE 5% 1 PATCH TD PRN (19:18)
[2019-12-11] MEDS: methylPREDNISolone 60 MG in SYRINGE 0 ML IV SCH ×2 (02:48→07:49)
[2019-12-11 04:51] LABS: Hematocrit (blood only) 37.9 % (42-52); Hemoglobin 13.1 g/dL (14.0-18.0); Mean Corpuscular Hgb Conc 34.6 g/dL (32-36); Mean Corpuscular Volume 86.9 fL (80-100); Mean Platelet Volume 10.2 fL (7.4-10.4); Platelet Count 362 K/uL (130-400); RDW Coefficient of Variation 13.8 % (11.5-14.5); Red Blood Count 4.36 M/uL (4.7-6.1); White Blood Count 12.85 K/uL (4.8-10.8)
[2019-12-11 05:14] LABS: BUN Creatinine Ratio 18.8 (10-20); Calcium 8.1 mg/dl (8.5-10.1); Creatinine Clr Calc Pharmacy 72.4 ml/min; Est GFR (African American) 108.1; Est GFR (Non-African American) 93.3; Magnesium 2.2 mg/dl (1.8-2.4); Phosphorus 3.3 mg/dl (2.5-4.9); Potassium 3.8 mmol/L (3.5-5.1)
[2019-12-11] MEDS: LACTATED RINGER'S 1,000 ML IV SCH (05:18)
--- NOTE | 2019-12-11 09:26 | Critical Care Progress Note ---
Date of Service December 11, 2019 Assessment & Plan (1) Angioedema: Angioedema continues to be improving. Continue 5 days of prednisone. He is to see immunology as an outpatient. Appreciate Dr. Jimenez seeing the patient as an inpatient. Hold all GERALDO inhibitors as an outpatient. I would also be more cautious and hold ARBs at least in the acute setting for the next couple of months. Follow-up on complement testing. Discharge home today. (2) History of paroxysmal supraventricular tachycardia: (3) Cervical disc displacement: (4) HTN (hypertension): Subjective Patient is much improved today. Tongue swelling is improved. He is able to eat and drink. He did have some "gas" this morning. He had an episode of retching which has since resolved. He denies any chest pain. He does endorse some chronic shortness of breath. He is eager to go home. Physical Exam Constitutional: WD/WN, vitals as above average body habitus Eyes: PERRL, conjunctivae normal, anicteric sclerae ENMT: Mallampati Class: IV Tongue is still mildly swollen. The swelling has decreased substantially since yesterday. Able to see me posterior fossa of the oropharynx. Phonating well. Neck: trachea midline, no thyromegaly Respiratory: normal respiratory effort, lungs clear to auscultation Cardiovascular: RRR, no murmur, no edema Gastrointestinal (Abdomen): normal bowel sounds, soft, nontender, no hepatosplenomegaly Musculoskeletal: no cyanosis or clubbing, extremities motor strength 5/5 Skin: no rashes, warm and dry Neurologic: PERRL, EOMI, accommodation nl, no face palsy, no dysarthria Psychiatric: A+Ox3, euthymic affect Lymphatic: no cervical lymphadenopathy Results & Data ([facility]) Vital Signs (Past 12 Hours) Vital Signs Temp Pulse Resp BP Pulse Ox 12/11/19 08:19 91 H 16 134/80 95 12/11/19 07:19 98.4 F 90 19 129/81 94 12/11/19 05:19 89 19 120/84 95 12/11/19 04:20 98.2 F 80 15 144/68 H 95 12/11/19 03:19 87 17 148/84 H 91 12/11/19 02:20 91 H 17 130/81 92 12/11/19 01:19 78 15 107/71 91 12/11/19 00:19 88 13 126/81 91 12/11/19 00:00 91 H 12/10/19 23:19 89 18 150/77 H 93 12/10/19 22:19 84 18 137/73 93 Coding Level of Care Code 57036 Subseq Hosp Care Lvl 2 Diagnoses Angioedema T78.3XXA History of paroxysmal supraventricular tachycardia Z86.79 Cervical disc displacement M50.20 HTN (hypertension) I10
--- NOTE | 2019-12-11 10:41 | Hospitalist Progress Note ---
Date of Service December 11, 2019 Assessment & Plan (1) Angioedema: -Admit to ICU -Patient presenting from home with reports of a swollen tongue that he noticed at 4 AM this morning -Noted patient is on lisinopril, which she has been taking for the past few years. Other new medication exposures include IV ceftriaxone, IV Flagyl, p.o. Bactrim, p.o. Flagyl, Tamiflu during admission about 1 month ago. -No new food exposures -Received IV diphenhydramine, IM epinephrine, Solu-Medrol 60 mg, IV ranitidine -Appreciate rheumatology input and recommendation -Appreciate mobile health vehicle operator input and recommended -Clinically a lot better this morning without any symptoms -Blood pressure is controlled with the amlodipine and beta-bisi -Advance diet as tolerated and likely to be discharged this afternoon (2) HTN (hypertension): -BP currently controlled, holding lisinopril secondary to above -Holding all p.o. meds due to severe angioedema -Monitor BP, provide IV antihypertensive if needed -Will not start any new medications for the blood pressure control for now (3) History of paroxysmal supraventricular tachycardia: -Typically managed on propranolol, holding as above -Monitor on telemetry -No evidence of cardiac arrhythmia (4) Acid reflux: -Receiving IV ranitidine due to angioedema (5) DVT prophylaxis: -SCDs for now Subjective 12/11/2019 The patient was seen and examined in ICU He was admitted with angioedema likely secondary to GERALDO inhibitor He has been feeling a lot better today denies any tongue swelling, any shortness of breath He will be going home this afternoon Review of Systems Review of Systems: All systems reviewed and are unremarkable except as noted below Ear, Nose, Mouth, Throat: no hoarseness, no dysphagia and no pain with swallowing Respiratory: no cough and no dyspnea Physical Exam Physical Exam: Lying in bed comfortably Constitutional: well developed, well nourished and + obese; no acute distress and not ill appearing Eyes: PERRL, conjunctivae normal, anicteric sclerae ENMT: Nose: no nasal discharge Mouth: no lip abnormality, no oropharynx abnormality and no oral mucosal abnormality Throat: uvula midline Neck: trachea midline, no thyromegaly Respiratory: normal respiratory effort Auscultation: lungs clear to auscultation bilaterally Cardiovascular: Rate/Rhythm: regular rate and regular rhythm Heart Sounds: no murmur Gastrointestinal (Abdomen): Inspection/Auscultation: abdomen normal to inspection and normal bowel sounds Percussion/Palpation: abdomen soft; abdomen nontender Musculoskeletal: No acute arthritis involving any joints Neurologic: moves all extremities and + focal motor deficit Alert, awake and oriented x3 Lymphatic: no cervical or axillary lymphadenopathy Results & Data ([facility]) Vital Signs (Past 12 Hours) Vital Signs Temp Pulse Resp BP Pulse Ox 12/11/19 08:19 91 H 16 134/80 95 12/11/19 07:19 36.9 C 90 19 129/81 94 12/11/19 05:19 89 19 120/84 95 12/11/19 04:20 36.8 C 80 15 144/68 H 95 12/11/19 03:19 87 17 148/84 H 91 12/11/19 02:20 91 H 17 130/81 92 12/11/19 01:19 78 15 107/71 91 12/11/19 00:19 88 13 126/81 91 12/11/19 00:00 91 H 12/10/19 23:19 89 18 150/77 H 93 Laboratory Results Short CBC 12/11/19 Range/Units 04:23 WBC 12.85 H (4.8-10.8) K/uL Hgb 13.1 L (14.0-18.0) g/dL Hct 37.9 L (42-52) % Plt Count 362 (130-400) K/uL BMP 12/11/19 04:23 Sodium 139 Potassium 3.8 Chloride 106 Carbon Dioxide 26 BUN 12 Creatinine 0.66 Glucose 133 H Calcium 8.1 L Medications Administered Current Inpatient Medications Ranitidine HCl 50 mg/ Dextrose 102 mls @ 200 mls/hr IV Q8H JOY Stop: 01/09/20 07:59 Last Infusion: 12/11/19 08:25 Dose: Infused Documented by: Methylprednisolone 60 mg/ (Syringe) 0.96 mls @ 1.5 mls/min IV Q6H JOY Stop: 01/09/20 17:59 Last Admin: 12/11/19 07:49 Dose: 1.5 mls/min Documented by: Lactated Ringer's (Lr) 1,000 mls @ 100 mls/hr IV .Q10H JOY Stop: 01/09/20 12:14 Last Infusion: 12/11/19 09:43 Dose: 0 mls/hr Documented by: Lidocaine (Lidoderm 5%) 1 patch TD DAILY@1930 PRN PRN Reason: Pain Stop: 01/09/20 19:17 Last Admin: 12/10/19 19:44 Dose: 1 patch Documented by: Miscellaneous (Icu Protocol For Hyperglycemia) 1 ea N/A PRN PRN; Protocol PRN Reason: Hyperglycemia Protocol Stop: 12/12/19 09:14 Miscellaneous (Remove Lidoderm Patch) 1 ea N/A DAILY@0730 [facility] Stop: 01/10/20 07:29 Last Admin: 12/11/19 07:49 Dose: 1 ea Documented by:
--- NOTE | 2019-12-11 18:15 | Discharge Summary ---
Date of Service December 11, 2019 Admission HPI Per Admitting Provider 79-year-old male who presents the ED for evaluation of swollen tongue. Patient reports he woke up around 4 AM and noticed the symptoms. Patient drove himself to the ED for further evaluation. It is noted the patient is on lisinopril however he has been on it for the past couple of years. Recently admitted to [facility] the beginning of November for treatment of diverticulitis and influenza. Patient was discharged on Tamiflu, Flagyl, Bactrim. He completed those courses a few weeks ago. Denies any other new medications or new food exposures. Patient denies shortness of breath. He is able to handle his secretions. No chest pain. Denies lightheadedness, dizziness, diaphoresis, syncopal events. Denies abdominal pain, nausea, vomiting, diarrhea. No other recent illnesses, fevers, chills. He denies any urinary symptoms. In the ED, patient has remained hemodynamically stable. He received IV diphenhydramine, IM epinephrine, Solu-Medrol 60 mg IV, IV ranitidine. Patient was evaluated by anesthesia who does not feel the patient needs prophylactic intubation at this time. Patient will be admitted to ICU for close monitoring. Admission Exam Per Admitting Provider Constitutional: WD/WN, vitals as above average body habitus Eyes: PERRL, conjunctivae normal, anicteric sclerae ENMT: Mallampati Class: IV Tongue is still mildly swollen. The swelling has decreased substantially since yesterday. Able to see me posterior fossa of the oropharynx. Phonating well. Neck: trachea midline, no thyromegaly Respiratory: normal respiratory effort, lungs clear to auscultation Cardiovascular: RRR, no murmur, no edema Gastrointestinal (Abdomen): normal bowel sounds, soft, nontender, no hepatosplenomegaly Musculoskeletal: no cyanosis or clubbing, extremities motor strength 5/5 Skin: no rashes, warm and dry Neurologic: PERRL, EOMI, accommodation nl, no face palsy, no dysarthria Psychiatric: A+Ox3, euthymic affect Lymphatic: no cervical lymphadenopathy Principal Diagnosis Angioedema likely secondary to lisinopril, hypertension Discharge Exam Constitutional well developed, well nourished and + obese; no acute distress and not ill appearing Eyes PERRL, conjunctivae normal, anicteric sclerae ENMT Nose: no nasal discharge Mouth: no lip abnormality, no oropharynx abnormality and no oral mucosal abnormality Throat: uvula midline Neck trachea midline, no thyromegaly Respiratory normal respiratory effort Auscultation: lungs clear to auscultation bilaterally Cardiovascular Rate/Rhythm: regular rate and regular rhythm Heart Sounds: no murmur Gastrointestinal (Abdomen) Inspection/Auscultation: abdomen normal to inspection and normal bowel sounds Percussion/Palpation: abdomen soft; abdomen nontender Neurologic moves all extremities and + focal motor deficit Lymphatic no cervical or axillary lymphadenopathy Discharge Data Allergies Allergy/AdvReac Type Severity Reaction Status Date / Time GERALDO Inhibitors Allergy Swelling Verified 12/11/19 08:10 of Lip/Tongue/Throat oxycodone AdvReac Mild HALLUCINATI Verified 12/10/19 08:21 ONS amoxicillin AdvReac Unknown increased Verified 12/10/19 08:21 lft's clavulanic acid AdvReac Unknown increased Verified 12/10/19 08:21 lft's Consultations 12/10/19 07:57 ED Decision to Admit Stat 12/10/19 09:15 Consult Case Management - Discharge Planning Routine Consult Information Technology Audit Manager Routine 12/10/19 12:11 Consult Allergy / Immunology Routine Hospital Course (1) Angioedema: -Admit to ICU -Patient presenting from home with reports of a swollen tongue that he noticed at 4 AM this morning -Noted patient is on lisinopril, which she has been taking for the past few years. Other new medication exposures include IV ceftriaxone, IV Flagyl, p.o. Bactrim, p.o. Flagyl, Tamiflu during admission about 1 month ago. -No new food exposures -Received IV diphenhydramine, IM epinephrine, Solu-Medrol 60 mg, IV ranitidine -Appreciate rheumatology input and recommendation -Appreciate cotton puller input and recommended -Clinically a lot better this morning without any symptoms -Blood pressure is controlled with the amlodipine and beta-bisi -Advance diet as tolerated and likely to be discharged this afternoon (2) HTN (hypertension): -BP currently controlled, holding lisinopril secondary to above -Holding all p.o. meds due to severe angioedema -Monitor BP, provide IV antihypertensive if needed -Will not start any new medications for the blood pressure control for now (3) History of paroxysmal supraventricular tachycardia: -Typically managed on propranolol, holding as above -Monitor on telemetry -No evidence of cardiac arrhythmia (4) Acid reflux: -Receiving IV ranitidine due to angioedema (5) DVT prophylaxis: -SCDs for now Total Time Total Time Spent Total Time Spent (In Minutes): 35 minutes Total Time Includes: Examination of the Patient, Discharge Planning, Medication Reconciliation and Communication With Other Providers Discharge Plan Discharge Items Patient Disposition: Home - Self-Care Reason For Visit: ANGIODEMA Discharge Diagnosis: Angioedema likely secondary to lisinopril, hypertension Condition on Discharge: Good Activity: Resume your previous activity Non-emergency contact: Primary Care Provider Call non-emergency contact if: you have any medication questions and your symptoms worsen Follow-up/Referrals: Marcial Franks DO [Primary Care Provider] - 12/16/19 12:55 pm (Will call you on Friday with an appointment with your primary care physician [facility] office will call you for an appointment within 2 weeks) Vipul Jensen MD [Physician] - 12/21/19 1:40 am Diet: Heart Healthy Addtl Attending Provider Instructions: Do not use any more lisinopril and/or similar drugs Pending Studies at Discharge: Yes Studies:: C1 esterase inhibitor level and C4 Stand-Alone Forms: My ZALP, Smoking Cessation Medications and DC Order Prescriptions: New cetirizine 10 mg tablet 10 mg PO BID Qty: 30 RF: 0 prednisone 10 mg tablet 10 mg PO UD Qty: 20 RF: 0 Continued amlodipine 2.5 mg Tablet 5 mg PO QAM RF: 0 potassium chloride 10 mEq Tablet Extended Release 20 meq PO DAILY@1600 RF: 0 valacyclovir 500 mg Tablet 500 mg PO BID PRN (Reason: Cold Sores) RF: 0 aspirin 81 mg Tablet,Delayed Release (Dr/Ec) 81 mg PO QAM RF: 0 tramadol 50 mg Tablet 100 mg PO Q8 PRN (Reason: Pain) RF: 0 omeprazole 20 mg Capsule,Delayed Release(Dr/Ec) 20 mg PO QAM RF: 0 albuterol sulfate [Ventolin HFA] 90 mcg/actuation Hfa Aerosol Inhaler 2 puff INHALATION Q4H PRN (Reason: Shortness Of Breath Or Wheezing) RF: 0 atorvastatin 10 mg tablet 10 mg PO QAM RF: 0 clobetasol [Temovate] 0.05 % cream 1 applic TOPICAL BID PRN (Reason: PSORIASIS FLARE UP) RF: 0 triamcinolone acetonide 0.1 % Cream 1 applic TOPICAL BID PRN (Reason: ITCHING FLARE UP) RF: 0 propranolol 80 mg capsule,extended release 24 hr 80 mg PO QAM RF: 0 Discontinued lisinopril 30 mg Tablet 30 mg PO QAM RF: 0 Discharge Orders: Discharge Order (Routine); Ordered 12/11/19 Ordered By: Lulu Loredo Admission Data Admit Date/Time: 12/10/19 08:22 Attending Provider: Lulu Loredo Admit Provider: Dallin Zafar Primary Care Provider: Marcial Franks Other Providers: Dallin Zafar ; Dong Candelario ; Kenia Brennan ; Manjeet Ray ; Joyce Jimenez Other Interventions: Discharge Summary Assessment (RN) Last Done: 12/11/19 12:41 DC Date/Time DO NOT enter until pt leaves facility: 12/11/19 13:12
[2019-12-15 23:36] LABS: C1 Esterase Inhib Functional >100 % (>=68); C1 Esterase Inhibitor 39 mg/dL (21-39)
== END 2019-12-11 13:12 | disposition home or self-care (01) | DRG 916 ==
LOC: ED 07:12 → SUATTDRO 08:22 → 1E 08:22